=== PATIENT | female | born 1930 | race Caucasian/White ===

== ENCOUNTER 2017-03-30 10:14 | Day surgery (SDC) | payer OTHER, MEDICARE ==
[~2017-03-30 10:14] MED LIST: Acetaminophen TAB* 325 MG PO PRN; Buffered Lidocaine 0.9% SYRIN* 5 ML/SYR SYRINGE INTRADERM ONE
[2017-03-30] MEDS ORDERED: Midazolam* 1 MG/ML 2 ML VIAL (2 MG) ONE (10:38)
[2017-03-30 11:34] VITALS: BP 123/60
[2017-03-30] MEDS ORDERED: Tropicamide 1% OPTH.SOL* BTL ONE (11:37)
[2017-03-30] MEDS ORDERED: Cyclopentolate 1% OPTH.SOL* 2 ML BTL ONE (11:37)
[2017-03-30] MEDS ORDERED: Buffered Lidocaine 0.9% SYRIN* 5 ML/SYR SYRINGE ONE (11:37)
[2017-03-30] MEDS ORDERED: Flurbiprofen 0.03% OPTH.SOL* 2.5 ML BTL ONE (11:37)
[2017-03-30] MEDS ORDERED: Tetracaine 0.5% OPTH.SOL 4 ML* 1 DROP BTL ONE (11:37)
[2017-03-30] MEDS ORDERED: Lidocaine 1% MPF* 2 ML VIAL ONE (11:37)
[2017-03-30] MEDS ORDERED: Phenylephrine 2.5% OPTH.SOL* 2 ML BTL ONE (11:37)
[2017-03-30] MEDS ORDERED: Neomycin/Polymy/Dex OPHTH.OIN* 3.5 GM ONE (11:37)
[2017-03-30] MEDS ORDERED: Phenylephr/Ketorolac 1%/0.3% OPH DROP BTL ONE (12:39)
--- NOTE | 2017-03-30 16:28 | OP ---
DATE OF OPERATION/DATE OF DICTATION: 03/30/2017 - [facility] DATE OF : 1930. SURGEON: Dr. Husam Hernandez. EDGE WORKER: None. ANESTHESIA: Topical with intravenous sedation. PRE-OP DIAGNOSIS: Cataract, left eye. POST-OP DIAGNOSIS: Cataract, left eye. OPERATIVE PROCEDURE: Phacoemulsification and cataract extraction with posterior chamber intraocular lens implant, left eye. COMPLICATIONS: None. BLOOD LOSS: None. DESCRIPTION OF PROCEDURE: The patient was brought to the operating room and received a small amount of intravenous sedation. A drop of Tetracaine was placed in her left eye. She was prepped and draped in the usual sterile fashion for ophthalmic surgery and attention was directed to the left eye where a speculum was placed. A paracentesis was created at the 5 o'clock position and 0.1 cc of 1 percent preservative-free Lidocaine was injected into the anterior chamber followed by DisCoVisc. The eye was digitally stabilized while a 2.75 mm keratome was used to create a triplanar clear corneal incision at the 3 o'clock position. A continuous curvilinear capsulorrhexis was created with a cystotome and Utrata forceps. BSS on a cannula was used to hydrodissect the lens from the capsule. Phacoemulsification was performed in a divide-and- conquer technique to create four fragments which were removed. Residual cortical material was removed with irrigation and aspiration. DisCoVisc was used to inflate the capsular bag and an AUOOTO 18.5 diopter lens was folded and inserted into the capsular bag. DisCoVisc was removed using irrigation and aspiration. BSS on a cannula was used to hydrate the corneal stroma and seal the wound. At the end of the case the pupil was round and the lens was centered. The eye was of normal pressure and the wound was water tight. The speculum was removed and topical Maxitrol ointment was placed on the surface of the eye. The eye was closed, patched and shielded and the patient was sent to the recovery room in stable condition with post operative instructions and follow-up appointment given. [id number] #: [id number] MTDD
== END 2017-03-30 11:31 | disposition home or self-care (01) ==
LOC: OREAST 10:14
PROVIDERS: ATTEND Ophthalmology
DX: H25.12 Age-related nuclear cataract, left eye (principal); I48.91 Unspecified atrial fibrillation; Z79.01 Long term (current) use of anticoagulants; I10 Essential (primary) hypertension; I34.0 Nonrheumatic mitral (valve) insufficiency; I27.2 Other secondary pulmonary hypertension; I07.1 Rheumatic tricuspid insufficiency; E11.9 Type 2 diabetes mellitus without complications; Z79.84 Long term (current) use of oral hypoglycemic drugs
CPT/HCPCS: A9270-GY; C9447; J2250; V2632

== ENCOUNTER 2018-10-23 13:07 | Inpatient (IN) | payer OTHER, MEDICARE ==
--- OUTSIDE RECORDS SUMMARY | 2018-10-23 13:31 | XMS REPORT | Continuity of Care Document ---
:1930 External Reference #:[id number] Author Name RojasMorelia kenny Care Team Providers Name Role Phone Keely Sharpe M.D. Primary Care Physician Unavailable Payers Type Date Identification Numbers Payment Provider Subscriber Policy Number: [id number] [employer] Evelyn Frias Group Number: [id number] [address] PayID: [id number] [place] [address] Effective: 1998 Policy Number: [id number] Medicare Evelyn Frias PayID: [id number] [address] [place] [address] Advance Directives Description No Information Available Problems Date Description Provider Status Onset: 01/06/2018 Chronic kidney disease stage 3 Albert Chaney M.D., FRANSISCO Active Onset: 11/06/2015 Chronic atrial fibrillation Tomás Hansen M.D. Active Onset: 04/29/2016 Peripheral venous insufficiency Albert Chaney M.D., FACP Active Onset: 09/03/2014 Essential hypertension Tomás Hansen M.D. Active Onset: 09/03/2014 Mitral valve disorder Tomás Hansen M.D. Active Onset: 09/03/2014 Edema Tomás Hansen M.D. Active Onset: 01/21/2016 Right carotid artery occlusion Albert Chaney M.D., FRANSISCO Active Note: with <50% LT plaque Onset: 04/29/2016 Type 2 diabetes mellitus Albert Chaney, Active FRANSISCO Zarate Onset: 08/04/2017 Localized, primary Asa Rodriguez M.D. Active osteoarthritis Onset: 09/29/2017 Trochanteric bursitis Asa Rodriguez M.D. Active Onset: 09/03/2014 Atrial fibrillation Tomás Hansen M.D. Inactive Inactive: 12/23/2015 Onset: 05/24/2015 Sleep disorder Tomás Hansen M.D. Inactive Inactive: 01/21/2016 Onset: 01/21/2016 Hypersomnia with sleep apnea Albert Chaney M.D.,FACP Inactive Inactive: 04/29/2016 Onset: 06/11/2017 Chronic kidney disease stage Albert Chaney M.D.,ESTIVENP Inactive 2 Inactive: 01/06/2018 Note: estimated Family History Date Family Member(s) Problem(s) Comments : (age 70 Father due to Pneumonia Years) Father Mental Illness NOS Mother due to Renal () - at 71 or 72 Failure yo Siblings 1 1 sister with intestinal problem, no heart disease, alive Social History Type Date Description Comments Sex Unknown Marital Status Lives With Alone Occupation 09/10/2016 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, 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 [employer] Tobacco Use Start: Unknown Never Smoked Cigarettes Smoking Status Reviewed: 10/04/18 Never Smoked Cigarettes ETOH Use Denies alcohol use Tobacco Use Start: Unknown Patient has never smoked Recreational Drug Use Never Used Drugs Exercise Type/Frequency Exercises sporadically up and down 4 steps in house only Allergies, Adverse Reactions, Alerts Date Description Reaction Status Severity Comments 05/17/2014 Penicillin Active 05/17/2014 Sulfa Antibiotics Active 05/17/2014 Erythromycin Active 01/21/2016 Lipitor Active somnolence 07/31/2016 Levaquin tendon and muscle pain Active gastritis also 07/31/2016 Rosuvastatin muscle and joint pain Active Severe tolerates 5 mg Medications Medication Date Status Form Strength Qnty SIG Indications Ordering Provider Magnesium 10/04 Active Tablets 250mg 30tab 1 tab daily in Tomás Oxide -MG /2018 s in the morning F. Supplement by mouth Elliot Hansen Doxycycline 09/30 Hx Tablets 100mg 14tab 1 by mouth Albert Hyclsolomon /2018 s twice a day Francisca Whittington M.D.,FACP 10/07 Trulicity 09/30 Active Solution 1.5mg/0.5 2ml inject E11.65 Pen-Inject ML subcutaneously Harry Chaney, weekly M.D.,FACP Shingrix 04/08 Active Suspension 50mcg 2unit 0.5 milliliters Rec s intramuscular Harry Chaney, now and 2-3 M.D.,FACP months later repeat Eliquis 01/03 Active Tablets 2.5mg 180ta 1 tablet by Tomás bs mouth twice a F. day Elliot Hansen Albuterol 10/28 Active Nebulizer 1.25mg/3M 75ml use four times L a day as needed Harry Chaney with nebulizer Elliot,FACP Lovastatin 10/15 Active Tablets 40mg 90tab Take 1 Tablet E78.5 s By Mouth AT Harry Chaney, Bedtime M.DFreya,FACP I10 Voltaren 08/04/2017 Active Gel 1% 500units apply 3 M17.0 Asa grams to Jennifer, affected M.D. area twice a day as needed Freestyle 06/11/2017 Active Device 1units test twice E11.65 Albert Lite Blood daily and as Harry Chaney Glucose directed M.Harry,FACP Monitoring System Janumet XR 12/09/2016 Active Tablets ER 100-1 90tabs take 1 E11.65 Vance Dawkins 24HR 000mg tablet by Harry Chaney, mouth every M.D.,FACP day Pen Carmel 09/10/2016 Active Misc 31G X 10units use weekly Albert 6 mm with Rufino Whittington M.D.,FACP Flector 09/10/2016 Active Patches 1.3% 30units Apply 1 Albert Patch To The Harry Chaney Skin Two M.D.,FACP Times Daily as Needed Proair HFA 05/13/2016 Active Aerosol 108(9 8.5units Inhale 1 J20.9 Zenon 0Base puff By DEBORAH Chavarria ) Mouth Every mcg/A [address] Needed For Chest Tightness Or Wheezing R06.2 Nystop 03/04/2016 Active Powder [id number]/GM 1units apply L30.4 Jared Gray topically Harry Chaney, to rash M.D.,FACP twice a day until rash resolved Torsemide 11/06/2015 Active Tablets 10mg 90tabs take 1 L03.116 Jared Gray tablet by Harry Chaney, mouth every M.D.,FACP wednesday and wednesday R60.0 I10 Cardizem CD 10/09/2014 Active Caps ER 240mg 90caps take 1 I48.2 Jared Mcdonald 24HR capsule by Mikey, mouth every M.D.,FACP day I10 Metoprolol 06/08/2014 Active Tablets ER 25mg 180tabs 1 by I48.2 Jared Mcdonald Succinate ER 24HR mouth [place], twice M.D.,FACP daily I10 Advil Active Capsules 200mg 200caps as needed Unknown Fluticasone Active Suspension 50mcg/Ac 2 sprays Unknown Propionate t each nostril daily as needed Lisinopril 11/22/2017 - Hx Tablets 2.5mg 90tabs take 1 Albert 10/04/2018 tablet by Harry Chaney, mouth M.D.,FACP every day Cefuroxime 10/28/2017 - Hx Tablets 500mg 14tabs 1 by mouth Albret Axetil 11/04/2017 twice a D. Mikey, day for 7 M.D.,FACP days Azithromycin 10/28/2017 - Hx Tablets 250mg 6tabs 2 every Albert 11/02/2017 day for 1 D. Mikey, day, then M.D.,FACP 1 every day Ciprodex 02/11/2017 - Hx Suspension 0.3-0.1% 7.500ml instill 4 H6 Wyatt 02/18/2017 drops into 0. Angelique, FREELANCE WRITER affected 8x ears twice 2 daily for 7 days Janumet 12/09/2016 - Hx Tablets 50-500mg Zenon 12/09/2016 Yemeni, FREELANCE WRITER Fortamet 09/10/2016 - Hx Tablets ER 1000mg 90tabs 1 by mouth E1 Jared Gray 12/09/2016 24HR every 1. D. Mikey, morning 67 M.D.,FACP Jodie Trulicity 09/10/2016 - Hx Solution 0.75mg/0 2ml inject the E1 Albert 09/30/2018 Pen-Inject .5ML contents 1. D. [place], of one 67 M.D.,FACP syringe under the skin once weekly Doxycycline 09/03/2016 - Hx Capsules 100mg 20caps 1 capsulet L0 Zenon Hyclate 09/13/2016 by mouth 3. Yemeni, twice a 11 FREELANCE WRITER day for 10 5 days Janumet XR 08/12/2016 - Hx Tablets ER 100-1000 30tabs 1 tab po Zenon 09/10/2016 24HR mg qd Yemeni, F[employer]ELANCE WRITER Clindamycin HCL 08/04/2016 - Hx Capsules 300mg 15caps 1 capsule L0 Zenon 08/22/2016 by mouth 3. Yemeni, three 11 FREELANCE WRITER times a 6 day x's 5 days Doxycycline 07/31/2016 - Hx Tablets 100mg 20tabs 1 by mouth L0 Zenon Hyclate 08/04/2016 twice a 3. Yemeni, day x10 11 FREELANCE WRITER days 6 Levaquin 05/27/2016 - Hx Tablets 750mg 7tabs 1 tab po J1 Zenon 06/29/2016 daily x5-7 8. Yemeni, days (pt 9 FREELANCE WRITER reports she stopped taking) Tessalon 05/27/2016 - Hx Capsules 200mg 30caps 1 cap po J2 Zenon 05/27/2016 tid prn 0. Yemeni, 9 FREELANCE WRITER R05 Tessalon 05/27/2016 - 05/27/2016 Hx Capsules 200mg J20.9 Zenon Yemeni , FREELANCE WRITER R05 Tessalon 05/27/2016 - Hx Capsules 100mg 30caps 2 caps by J20.9 Zenon Perles 06/06/2016 mouth three Yemeni, FREELANCE WRITER times a day as needed R05 Ipratropium 05/27/2016 Hx Solution 0.5-2.5(3)mg/3ML 90ml 3ml R06.2 Zenon Pember[place]/Albuterol - nebulizer Yemeni, Sulfate 06/06/2016 four times FREELANCE WRITER a day x 4 days Combivent Respimat 05/18/2016 Hx Aerosol 20-100mcg/Act 12uni 1 puffs R06.2 Zenon - ts 4-6 times Yemeni, 05/27/2016 daily as FREELANCE WRITER needed Prednisone 05/18/2016 Hx Tablets 20mg 10tab 2 tablets J20.9 Zenon - s by mouth Yemeni, 05/23/2016 daily x's FREELANCE WRITER 5 days in the morning Nica Perles 05/18/2016 Hx Capsules 100mg 30cap 1 capsule J20.9 Zenon - s by mouth Yemeni, 05/27/2016 three FREELANCE WRITER times a day as needed R05 Azithromycin 05/13/2016 - Hx Tablets 250mg 6tabs 2 tabs by J20.9 Zenon 05/18/2016 mouth on Yemeni, day 1; 1 FREELANCE WRITER tab by mouth every day on days 2-5 Combivent 05/13/2016 - Hx Aerosol 20-100mc 4gm inhale 1 J20.9 Zenon Respimat 05/18/2016 g/Act puff three Yemeni, times a day FREELANCE WRITER x 5 days Doxycycline 03/19/2016 - Hx Capsules 100mg 20caps 1 cab twice L03.116 Maxx Hyclate 04/29/2016 a day Elliot Manzanares Doxycycline 02/19/2016 - Hx Capsules 100mg 20caps 1 capsulet L03.115 Zenon Hyclate 02/29/2016 by mouth Yemeni, twice a day FREELANCE WRITER for 10 days Kombiglyze XR 02/04/2016 - Hx Tablets ER 5-500mg 30tabs 1 by mouth Albert 02/04/2016 24HR every day Harry Chaney M.D.,FACP Janumet XR 02/04/2016 - Hx Tablets ER 50-500mg 90tabs every day Jared Gray 08/12/2016 24HR by mouth Harry Chaney M.D.,FACP Metformin HCL 01/21/2016 - Hx Tablets ER 500mg 60tabs 1 by mouth E11.65 Albert ER (Osm) 02/04/2016 24HR every day Harry Chaney, for 2 wks M.D.,FACP then 2 qd Crestor 11/06/2015 - Hx Tablets 5mg 90tabs take 1 E78.5 Albert 10/15/2017 tablet by Harry Chaney, mouth every M.D.,FACP day I10 Metoprolol 04/29/2015 - Hx Tablets ER 25mg 100tabs 1 by mouth in Tomás Succinate ER 11/06/2015 24HR the afternoon nicholas Palomino planning M.DFreya to exercise at the gym. Torsemide 09/03/2014 - Hx Tablets 10mg 30tabs 1 by mouth Tomás 11/06/2015 twice a week Braulio Hansen pt states she M.D. is taking everyother day Cardizem CD 08/13/2014 - Hx Caps ER 180mg 90caps 1 by mouth Tomás 10/09/2014 24HR every day Braulio Hansen M.D. Cardizem CD 07/26/2014 - Hx Caps ER 120mg 90caps 1 by mouth Tomás 08/13/2014 24HR every day Braulio Hansen M.D. Digoxin 07/26/2014 - Hx Tablets 125mcg 25tabs 1 by mouth Tomás 10/09/2014 twice a week Braulio Hasnen M.D. Lisinopril 06/08/2014 - Hx Tablets 5mg 60tabs 1/2 by mouth Tomás 10/09/2014 twice a day summer Palomino as of Elliot 12.15.14 for possible cough Metoprolol 04/23/2014 - Hx Tablets ER 25mg 60tabs 1 by mouth Unknown Succinate ER 06/08/2014 24HR twice a day Cyclobenzaprine 11/15/2012 - Hx Tablets 5mg 15tabs take one Asa HCL 05/11/2014 tablet by vince Rodriguez three M.DFreya times daily as needed for muscle spasm Lidocaine HCL 11/07/2012 - Hx Solution 4% 100ml apply to knee Asa 05/17/2014 prior to luis Rodriguez M.D. removal Cipro 10/27/2012 - Hx Tablets 500mg 14tabs one tab po Asa 05/04/2014 bid x 7 days Elliot Rodriguez Naprosyn 07/28/2012 - Hx Tablets 375mg 60tabs 1 po bid prn Asa 05/17/2014 Elliot Rodriguez Ultram 07/28/2012 - Hx Tablets 50mg 60tabs 1-2 po bid Asa 05/17/2014 prn Elliot Rodriguez Spironolactone - Hx Tablets 25mg 90tabs taking 1 L0 Tomás 09/20/2018 daily 3. Soni Palomino M.D. 6 R60.0 I10 Digoxin - Hx Tablets .125mcg 90tabs 1 by mouth Unknown 07/26/2014 every day Lisinopril - Hx Tablets 5mg 30tabs 1 by mouth Unknown 06/08/2014 every day Lipitor - Hx Tablets 20mg 90tabs one tab by Unknown 06/08/2014 mouth every night at bedtime HOld as of 9.19.14 Metoprolol - Hx Tablets 25mg 180tabs 1 by mouth Unknown Tartrate 05/17/2014 twice a day Doxycycline - Hx Capsules 100mg 40caps si Unknown Monohydrate 09/02/2014 twice a day x 20 days Ciprofloxacin HCL - Hx Tablets 250mg one by Unknown 01/22/2015 mouth twice a day for 7 days Keflex - Hx Capsules 500mg 1 by mouth Unknown 04/29/2015 two times a day Vitamin D3 Super - Hx Tablets 2000Unit 1 by mouth Unknown Strength 09/30/2018 every day Pradaxa - Hx Capsules 150mg 180caps take 1 I48. Albert 01/06/2018 capsule by 2 Harry Chaney, mouth two M.D.,FACP times daily 01/03 day 1: am only I65.21 Immunizations CPT Code Status Date Vaccine Reaction Lot # [id number] Given 09/15/2018 Influenza Virus Vaccine, Quadrivalent, [id number] Split, Preservative Free 93955 Given 06/11/2017 Influenza Virus Vaccine, Quadrivalent, no reaction [id number] Split, Preservative Free 26616 Given 09/03/2016 Pneumonia Vaccine [id number] 83672 Given 07/31/2016 Tdap - Tetanus/Diptheria/Acellular [id number] Pertussis 93698 Given 07/31/2016 Influenza Virus Vaccine, Quadrivalent, [id number] Split Virus, Im Use 04963 Given 01/21/2016 Pneumococcal Conjugate Vaccine 13 [id number] Valent For Intramuscular Use Vital Signs Date Vital Result Comment 10/04/2018 2:30pm Height 64 inches 5'4" Weight 216.38 lb no shoes, wearing sweatshirt Heart Rate 96 /min lt radial BP Systolic Sitting 138 mmHg rt arm BP Diastolic Sitting 74 mmHg rt arm BP Systolic Standing 108 mmHg la repeat sit BP Diastolic Standing 59 mmHg la repeat sit BMI (Body Mass Index) 37.1 kg/m2 Ejection Fraction 50-55% echo 01/07/18 09/30/2018 11:19am Height 64 inches 5'4" Heart Rate 91 /min BP Systolic 110 mmHg BP Diastolic 68 mmHg Body Temperature 97.3 F O2 % BldC Oximetry 94 % 07/04/2018 1:20pm Height 64 inches 5'4" Weight 230.12 lb no shoes Heart Rate 73 /min BP Systolic 110 mmHg rue large cuff BP Diastolic 60 mmHg rue large cuff BMI (Body Mass Index) 39.5 kg/m2 Ejection Fraction 50-55% Echo. 01/07/2018 04/08/2018 4:05pm Height 64 inches 5'4" Heart Rate 85 /min BP Systolic 126 mmHg BP Diastolic 74 mmHg O2 % BldC Oximetry 95 % 01/27/2018 10:32am Height 64 inches 5'4" Weight 230.00 lb w/o shoes Heart Rate 74 /min BP Systolic Sitting 110 mmHg Lue BP Diastolic Sitting 76 mmHg Lue Respiratory Rate 14 /min BMI (Body Mass Index) 39.5 kg/m2 Ejection Fraction 50-55% as of 12/2017 echo 01/06/2018 1:00pm Height 64 inches 5'4" Weight 233.00 lb Heart Rate 76 /min BP Systolic 130 mmHg BP Diastolic 76 mmHg O2 % BldC Oximetry 97 % BMI (Body Mass Index) 40.0 kg/m2 11/25/2017 1:24pm Height 64 inches 5'4" Weight 231.25 lb without shoes Heart Rate 56 /min BP Systolic Sitting 150 mmHg Ra, l cuff BP Diastolic Sitting 82 mmHg Ra, l cuff BMI (Body Mass Index) 39.7 kg/m2 Ejection Fraction 55%-60% echo 05/28/17 10/28/2017 3:34pm Weight 220.00 lb Heart Rate 93 /min BP Systolic 121 mmHg BP Diastolic 81 mmHg Body Temperature 98.0 F O2 % BldC Oximetry 95 % 10/06/2017 2:23pm Weight 223.00 lb Heart Rate 94 /min BP Systolic Sitting 150 mmHg BP Diastolic Sitting 80 mmHg BP Systolic Recheck 115 mmHg BP Diastolic Recheck 82 mmHg Body Temperature 99.4 F O2 % BldC Oximetry 94 % 09/29/2017 12:47pm Height 63.75 inches 5'3.75" Weight 223.00 lb per pt Heart Rate 82 /min reg BP Systolic Sitting 116 mmHg Lue, lg cuff BP Diastolic Sitting 70 mmHg Lue, lg cuff Respiratory Rate 16 /min Pain Level 4 b/l knees BMI (Body Mass Index) 38.6 kg/m2 08/04/2017 1:15pm Height 63.75 inches 5'3.75" Weight 220.00 lb Heart Rate 84 /min BP Systolic 130 mmHg BP Diastolic 82 mmHg Respiratory Rate 16 /min Body Temperature 98.9 F Pain Level 3 BMI (Body Mass Index) 38.1 kg/m2 06/11/2017 11:28am Heart Rate 72 /min BP Systolic Sitting 130 mmHg BP Diastolic Sitting 78 mmHg Body Temperature 98.6 F O2 % BldC Oximetry 98 % 04/20/2017 2:14pm Weight 234.25 lb with shoes Heart Rate 76 /min BP Systolic Sitting 146 mmHg Ra reg cuff BP Diastolic Sitting 88 mmHg Ra reg cuff BP Systolic Standing 134 mmHg la repeat sitting BP Diastolic Standing 72 mmHg la repeat sitting Ejection Fraction 50% - 55% echo 05/24/15 03/11/2017 12:52pm Weight 233.50 lb Heart Rate 67 /min BP Systolic Sitting 146 mmHg BP Diastolic Sitting 78 mmHg Body Temperature 98.7 F O2 % BldC Oximetry 97 % 02/26/2017 7:46am Heart Rate 76 /min BP Systolic Sitting 150 mmHg BP Diastolic Sitting 84 mmHg Body Temperature 98.7 F O2 % BldC Oximetry 98 % 02/11/2017 3:42pm Heart Rate 73 /min BP Systolic 150 mmHg BP Diastolic 80 mmHg Body Temperature 99.1 F O2 % BldC Oximetry 95 % 12/09/2016 1:03pm Heart Rate 88 /min BP Systolic Sitting 153 mmHg 148/90 BP Diastolic Sitting 108 mmHg 148/90 Body Temperature 98.5 F O2 % BldC Oximetry 96 % 09/25/2016 2:49pm Height 60 inches 5'0" Weight 234.00 lb with shoes Heart Rate 90 /min BP Systolic Sitting 132 mmHg Ra lrg cuff BP Diastolic Sitting 72 mmHg Ra lrg cuff BMI (Body Mass Index) 45.7 kg/m2 Ejection Fraction 50% - 55% echo 05/24/15 09/10/2016 1:15pm Height 60 inches 5'0" Weight 236.31 lb Heart Rate 88 /min BP Systolic Sitting 152 mmHg BP Diastolic Sitting 94 mmHg Body Temperature 97.5 F O2 % BldC Oximetry 96 % BMI (Body Mass Index) 46.1 kg/m2 09/03/2016 1:03pm Heart Rate 79 /min BP Systolic Sitting 144 mmHg BP Diastolic Sitting 78 mmHg Body Temperature 99.0 F O2 % BldC Oximetry 96 % 08/12/2016 2:05pm Heart Rate 70 /min BP Systolic Sitting 126 mmHg BP Diastolic Sitting 68 mmHg Body Temperature 99.2 F O2 % BldC Oximetry 97 % 08/04/2016 11:31am Heart Rate 93 /min BP Systolic Sitting 141 mmHg BP Diastolic Sitting 76 mmHg Body Temperature 98.8 F O2 % BldC Oximetry 98 % 07/31/2016 2:22pm Height 60 inches 5'0" Heart Rate 80 /min BP Systolic Sitting 130 mmHg BP Diastolic Sitting 80 mmHg Body Temperature 99.0 F O2 % BldC Oximetry 97 % 06/10/2016 11:17am Height 60 inches 5'0" Weight 227.00 lb w/o shoes Heart Rate 80 /min BP Systolic Sitting 142 mmHg LA lg cuff BP Diastolic Sitting 72 mmHg LA lg cuff BMI (Body Mass Index) 44.3 kg/m2 Ejection Fraction 50-55% Echo 05/24/15 06/01/2016 11:31am Heart Rate 89 /min BP Systolic Sitting 150 mmHg BP Diastolic Sitting 80 mmHg Body Temperature 96.8 F O2 % BldC Oximetry 98 % 05/27/2016 3:32pm Heart Rate 79 /min recheck 99 BP Systolic Sitting 150 mmHg BP Diastolic Sitting 80 mmHg Body Temperature 101.5 F 101.8 recheck O2 % BldC Oximetry 94 % 92% recheck 05/18/2016 1:08pm Heart Rate 84 /min BP Systolic Sitting 138 mmHg BP Diastolic Sitting 62 mmHg Body Temperature 98.5 F O2 % BldC Oximetry 97 % 05/13/2016 11:54am Heart Rate 104 /min BP Systolic Sitting 150 mmHg BP Diastolic Sitting 70 mmHg Body Temperature 99.9 F O2 % BldC Oximetry 92 % 04/29/2016 11:19am Height 60 inches 5'0" Weight 231.00 lb Heart Rate 80 /min BP Systolic Sitting 122 mmHg BP Diastolic Sitting 70 mmHg Body Temperature 99.4 F O2 % BldC Oximetry 94 % BMI (Body Mass Index) 45.1 kg/m2 04/06/2016 11:18am Height 60 inches 5'0" Weight 228.38 lb Heart Rate 96 /min BP Systolic Sitting 133 mmHg BP Diastolic Sitting 70 mmHg Body Temperature 98.9 F O2 % BldC Oximetry 96 % BMI (Body Mass Index) 44.6 kg/m2 03/24/2016 2:54pm Height 60 inches 5'0" Weight 226.00 lb Heart Rate 95 /min BP Systolic Sitting 124 mmHg BP Diastolic Sitting 68 mmHg Body Temperature 98.6 F O2 % BldC Oximetry 96 % BMI (Body Mass Index) 44.1 kg/m2 03/19/2016 1:39pm Height 60 inches 5'0" Weight 233.00 lb Heart Rate 97 /min BP Systolic Sitting 128 mmHg BP Diastolic Sitting 74 mmHg Body Temperature 99.7 F O2 % BldC Oximetry 97 % BMI (Body Mass Index) 45.5 kg/m2 03/04/2016 3:43pm Height 60 inches 5'0" Weight 226.12 lb Heart Rate 89 /min BP Systolic Sitting 132 mmHg BP Diastolic Sitting 80 mmHg Body Temperature 99.0 F O2 % BldC Oximetry 92 % BMI (Body Mass Index) 44.2 kg/m2 02/19/2016 3:01pm Height 60 inches 5'0" Weight 227.00 lb Heart Rate 76 /min BP Systolic Sitting 122 mmHg BP Diastolic Sitting 82 mmHg Body Temperature 98.6 F O2 % BldC Oximetry 95 % BMI (Body Mass Index) 44.3 kg/m2 01/21/2016 2:41pm Height 60 inches 5'0" Weight 227.25 lb Heart Rate 90 /min BP Systolic Sitting 158 mmHg BP Diastolic Sitting 90 mmHg Body Temperature 98.9 F O2 % BldC Oximetry 97 % BMI (Body Mass Index) 44.4 kg/m2 12/16/2015 2:21pm Height 64 inches 5'4" Weight 221.25 lb w/o shoes Heart Rate 90 /min BP Systolic 142 mmHg LA reg cuff BP Diastolic 82 mmHg LA reg cuff Respiratory Rate 18 /min BMI (Body Mass Index) 38.0 kg/m2 Ejection Fraction 50-55% ECHO 05/41511/06/2015 10:09am Height 64 inches 5'4" Weight 222.25 lb w/shoes Heart Rate 84 /min BP Systolic Sitting 136 mmHg LA reg cuff BP Diastolic Sitting 82 mmHg LA reg cuff BMI (Body Mass Index) 38.1 kg/m2 Ejection Fraction 50-55 echo 05/24/15 04/29/2015 3:05pm Height 64 inches 5'4" Weight 214.50 lb Heart Rate 74 /min BP Systolic Sitting 130 mmHg LA, large BP Diastolic Sitting 82 mmHg LA, large BMI (Body Mass Index) 36.8 kg/m2 Ejection Fraction 40%-45% 06/01/14 echo 10/23/2014 11:04am Height 64 inches 5'4" Weight 204.00 lb with coat Heart Rate 70 /min irregular BP Systolic 158 mmHg LA reg BP Diastolic 80 mmHg LA reg BMI (Body Mass Index) 35.0 kg/m2 09/03/2014 2:31pm Height 64 inches 5'4" Weight 206.00 lb Heart Rate 96 /min BP Systolic 122 mmHg LA reg BP Diastolic 75 mmHg LA reg BMI (Body Mass Index) 35.4 kg/m2 08/27/2014 1:00pm Heart Rate 80 /min BP Systolic 134 mmHg Ra, reg BP Diastolic 80 mmHg Ra, reg BP Systolic Sitting 132 mmHg LA, reg BP Diastolic Sitting 76 mmHg LA, reg 08/27/2014 12:56pm Height 64 inches 5'4" 07/30/2014 2:07pm Height 64 inches 5'4" Heart Rate 84 /min reg BP Systolic 134 mmHg Ra, reg BP Diastolic 84 mmHg Ra, reg BP Systolic Sitting 138 mmHg LA, reg BP Diastolic Sitting 82 mmHg LA, reg 07/10/2014 11:27am Height 64 inches 5'4" Weight 196.50 lb Heart Rate 74 /min BP Systolic Sitting 120 mmHg LA reg cuff BP Diastolic Sitting 62 mmHg LA reg cuff Respiratory Rate 15 /min BMI (Body Mass Index) 33.7 kg/m2 06/13/2014 10:05am Heart Rate 76 /min BP Systolic Sitting 126 mmHg BP Diastolic Sitting 68 mmHg Respiratory Rate 14 /min 06/08/2014 11:16am Height 64 inches 5'4" Weight 190.25 lb Heart Rate 84 /min BP Systolic Sitting 120 mmHg BP Diastolic Sitting 66 mmHg Respiratory Rate 15 /min BMI (Body Mass Index) 32.7 kg/m2 05/17/2014 10:29am Height 64 inches 5'4" Weight 188.00 lb Heart Rate 60 /min BP Systolic Sitting 152 mmHg BP Diastolic Sitting 84 mmHg Respiratory Rate 14 /min BMI (Body Mass Index) 32.3 kg/m2 01/13/2012 9:25am Height 64 inches 5'4" Weight 177.00 lb Heart Rate 90 /min BP Systolic 184 mmHg BP Diastolic 90 mmHg BMI (Body Mass Index) 30.4 kg/m2 Results Test Date Facility Test Result H/L Range Note Microalbumin 24HR 10/03/2018 [facility] Urine Collection 24 hr Urine [address] [place] [address] [phone] Urine Total Volume 1000 mL Ur Microalbumin (mg/L) 40.5 Urine Microalbumin (mg/24Hr) 40.5 mg/24hr High Less than 30 Urine Microalbumin (mcg/min) 28.1 mcg/min High Less than 20 Creatinine 10/03/2018 [facility] Creatinine, 1.68 High 0.51- 0.[address] Serum mg/[place] [address] [phone] Urine Collection Time 24 hr Urine Total Volume 1000 mL Urine Creatinine Concentration 106.50 mg/dL Creatinine Clearance 44 mL/min Low 88-128 CBC Auto 10/03/2018 [facility] White Blood 12.2 10^3/uL High 3.5-10.[address] [place] [address] [phone] Red Blood Count 4.21 10^6/uL N 4.00-5.40 Hemoglobin 12.2 g/dL N 12.0-16.0 Hematocrit 39 % N 35-47 Mean Corpuscular Volume 92 fL N 80-97 Mean Corpuscular Hemoglobin 29 pg N 27-31 Mean Corpuscular HGB Conc 32 g/dL N 31-36 Red Cell Distribution Width 15 % N 10.5-15 Platelet Count 350 10^3/uL N 150-450 Mean Platelet Volume 9.6 fL N 7.4-10.4 Abs Neutrophils 9.7 10^3/uL High 1.5-7.7 Abs Lymphocytes 1.1 10^3/uL N 1.0-4.8 Abs Monocytes 1.2 10^3/uL High 0-0.8 Abs Eosinophils 0.2 10^3/uL N 0-0.6 Abs Basophils 0.1 10^3/uL N 0-0.2 Abs Nucleated RBC 0 10^3/uL Granulocyte % 79.5 % Lymphocyte % 8.7 % Monocyte % 9.8 % Eosinophil % 1.4 % Basophil % 0.6 % Nucleated Red Blood Cells % 0 Laboratory test 10/03/2018 [facility] B-Type 285 pg/mL High <= 100 [address] [place] [address] Peptide BNP [phone] Magnesium 1.6 mg/dL Low 1.9-2.7 2 Comp Metabolic Panel 10/03/2018 [facility] Sodium 134 mmol/L Low 135-[address] [place] [address] [phone] Chloride 99 mmol/L Low 101-111 Co2 Carbon Dioxide 25 mmol/L N 22-32 Glucose 299 mg/dL High 70-100 Blood Urea Nitrogen 41 mg/dL High 6-24 Creatinine 1.66 mg/dL High 0.51-0.95 BUN/Creatinine Ratio 24.7 High 8-20 Calcium 10.1 mg/dL N 8.6-10.3 Total Protein 6.2 g/dL Low 6.4-8.9 Albumin 2.9 g/dL Low 3.2-5.2 Globulin 3.3 g/dL N 2-4 Albumin/Globulin Ratio 0.9 Low 1-3 Total Bilirubin 0.50 mg/dL N 0.2-1.0 Alkaline Phosphatase 129 U/L High 34-104 Alt 14 U/L N 7-52 Ast 12 U/L Low 13-39 Egfr Non- 29.3 >60 Egfr 35.4 >60 3 Potassium 5.5 mmol/L High 3.5-5.0 Anion Gap 10 mmol/L N 2-11 Laboratory test 09/30/2018 [facility] Hemoglobin A1c 9.6 High 5-7 finding Laboratory test 04/08/2018 [facility] Hemoglobin A1c 7.4 High 5-7 finding Basic Metabolic 04/05/2018 [facility] Sodium 137 mmol/L N 135- [address] [place], [place] [id number] [phone] Potassium 5.0 mmol/L N 3.5-5.0 Chloride 107 mmol/L N 101-111 Co2 Carbon Dioxide 18 mmol/L Low 22-32 Anion Gap 12 mmol/L High 2-11 Glucose 140 mg/dL High 70-100 Blood Urea Nitrogen 41 mg/dL High 6-24 Creatinine 1.62 mg/dL High 0.51-0.95 BUN/Creatinine Ratio 25.3 High 8-20 Calcium 9.4 mg/dL N 8.6-10.3 Egfr Non- 30.2 >60 Egfr 36.5 >60 4 Laboratory test 01/06/2018 [facility] Hemoglobin A1c 7.7 High 5-7 finding Lipid Panel - JFM 12/24/2017 [facility] Creatine 40 U/L N 10- [address] Kinase(CK) [place] [address] [phone] Comp Metabolic 12/24/2017 [facility] Sodium 139 mmol/L N 139- [address] [place] [address] [phone] Potassium 4.9 mmol/L N 3.5-5.0 Chloride 105 mmol/L N 101-111 Co2 Carbon Dioxide 24 mmol/L N 22-32 Anion Gap 10 mmol/L N 2-11 Glucose 162 mg/dL High 70-100 Blood Urea Nitrogen 56 mg/dL High 6-24 Creatinine 1.89 mg/dL High 0.51-0.95 BUN/Creatinine Ratio 29.6 High 8-20 Calcium 10.3 mg/dL N 8.6-10.3 Total Protein 6.7 g/dL N 6.4-8.9 Albumin 4.0 g/dL N 3.2-5.2 Globulin 2.7 g/dL N 2-4 Albumin/Globulin Ratio 1.5 N 1-3 Total Bilirubin 0.40 mg/dL N 0.2-1.0 Alkaline Phosphatase 108 U/L High 34-104 Alt 37 U/L N 7-52 Ast 18 U/L N 13-39 Egfr Non- 25.3 >60 Egfr 32.5 >60 6 Lipid Profile 12/24/2017 [facility] Triglycerides 137 mg/dL 7 (Trig/Chol/HDL) [address] [place] [address] [phone] Cholesterol 154 mg/dL 8 HDL Cholesterol 46.7 mg/dL 9 LDL Cholesterol 80 mg/dL 10 CBC Auto Diff 12/24/2017 [facility] White Blood 9.3 10^3/uL N 3.5-10.[address] [place] [address] [phone] Red Blood Count 4.83 10^6/uL N 4.0-5.4 Hemoglobin 14.7 g/dL N 12.0-16.0 Hematocrit 45 % N 35-47 Mean Corpuscular Volume 92 fL N 80-97 Mean Corpuscular Hemoglobin 30 pg N 27-31 Mean Corpuscular HGB Conc 33 g/dL N 31-36 Red Cell Distribution Width 16 % High 10.5-15 Platelet Count 180 10^3/uL N 150-450 Mean Platelet Volume 10.3 um3 N 7.4-10.4 Abs Neutrophils 6.3 10^3/uL N 1.5-7.7 Abs Lymphocytes 1.7 10^3/uL N 1.0-4.8 Abs Monocytes 0.9 10^3/uL High 0-0.8 Abs Eosinophils 0.3 10^3/uL N 0-0.6 Abs Basophils 0 10^3/uL N 0-0.2 Abs Nucleated RBC 0 10^3/uL Granulocyte % 67.7 % N 38-83 Lymphocyte % 18.2 % Low 25-47 Monocyte % 10.1 % High 0-7 Eosinophil % 3.5 % N 0-6 Basophil % 0.5 % N 0-2 Nucleated Red Blood Cells % 0.1 Laboratory test 12/24/2017 [facility] Magnesium 2.0 mg/dL N 1.9-2.7 11 finding [address] [place] [address] [phone] B-Type Natriuretic Peptide BNP 153 pg/mL High 12 Urine Microalbumin 10/28/2017 [facility] Ur Microalbumin 187.7 mg/L 13 Random 101 [facility] (mg/L) [place] [address] [phone] Urine Creatinine 169.15 mg/dL Urine Microalbumin/Creatinine 110.9 ug/mg High <31 Laboratory test 10/06/2017 [facility] Hemoglobin A1c 7.2 High 5-7 finding Laboratory test 06/11/2017 [facility] Hemoglobin A1c 7.2 High 5-7 finding Lipid Profile 05/05/2017 [facility] Triglycerides 157 mg/dL N 14 (Trig/Chol/HDL) [address] [place] [address] [phone] Cholesterol 138 mg/dL N 15 HDL Cholesterol 46.2 mg/dL N 16 LDL Cholesterol 60 mg/dL N 17 Comp Metabolic Panel 05/05/2017 [facility] Sodium 134 mmol/L N 133-145 [address] [place] [address] [phone] Potassium 4.5 mmol/L N 3.5-5.0 Chloride 102 mmol/L N 101-111 Co2 Carbon Dioxide 23 mmol/L N 22-32 Anion Gap 9 mmol/L N 2-11 Glucose 151 mg/dL High 70-100 Blood Urea Nitrogen 33 mg/dL High 6-24 Creatinine 1.46 mg/dL High 0.51-0.95 BUN/Creatinine Ratio 22.6 High 8-20 Calcium 9.2 mg/dL N 8.6-10.3 Total Protein 6.6 g/dL N 6.4-8.9 Albumin 3.7 g/dL N 3.2-5.2 Globulin 2.9 g/dL N 2-4 Albumin/Globulin Ratio 1.3 N 1-3 Total Bilirubin 0.50 mg/dL N 0.2-1.0 Alkaline Phosphatase 84 U/L N 34-104 Alt 12 U/L N 7-52 Ast 16 U/L N 13-39 Egfr Non- 34.0 N >60 Egfr 43.8 N >60 18 Lipid Panel - 05/05/2017 [facility] Creatine 43 U/L N 10-[address] Kinase(CK) [place] [address] [phone] CBC Auto Diff 05/05/2017 [facility] White Blood Count 8.1 N 3.5-10.[address] 10^3/[place] [address] [phone] Red Blood Count 4.53 10^6/uL N 4.0-5.4 Hemoglobin 13.6 g/dL N 12.0-16.0 Hematocrit 42 % N 35-47 Mean Corpuscular Volume 92 fL N 80-97 Mean Corpuscular Hemoglobin 30 pg N 27-31 Mean Corpuscular HGB Conc 33 g/dL N 31-36 Red Cell Distribution Width 16 % High 10.5-15 Platelet Count 219 10^3/uL N 150-450 Mean Platelet Volume 11 um3 High 7.4-10.4 Abs Neutrophils 5.6 10^3/uL N 1.5-7.7 Abs Lymphocytes 1.6 10^3/uL N 1.0-4.8 Abs Monocytes 0.7 10^3/uL N 0-0.8 Abs Eosinophils 0.3 10^3/uL N 0-0.6 Abs Basophils 0 10^3/uL N 0-0.2 Abs Nucleated RBC 0 10^3/uL N Granulocyte % 68.9 % N 38-83 Lymphocyte % 19.2 % Low 25-47 Monocyte % 8.1 % N 1-9 Eosinophil % 3.2 % N 0-6 Basophil % 0.6 % N 0-2 Nucleated Red Blood Cells % 0 N Laboratory test 03/30/2017 [facility] Point of Care 160 mg/dL High 74-106 [address] [place] [address] [phone] Laboratory test 02/26/2017 [facility] Hemoglobin A1c 7.4 High 5-7 finding Laboratory test 12/09/2016 [facility] Hemoglobin A1c 7.7 High 5-7 finding Basic Metabolic 09/22/2016 [facility] Sodium 135 N 133-[address] mmol/[place] [address] [phone] Chloride 104 mmol/L N 101-111 Co2 Carbon Dioxide 24 mmol/L N 22-32 Glucose 149 mg/dL High 70-100 Blood Urea Nitrogen 28 mg/dL High 6-24 Creatinine 1.33 mg/dL High 0.51-0.95 BUN/Creatinine Ratio 21.1 High 8-20 Calcium 9.4 mg/dL N 8.6-10.3 Egfr Non- 38.0 N >60 Egfr 48.9 N >60 20 Potassium TNP mmol/L N 3.5-5.0 21 Anion Gap TNP mmol/L N 2-11 Laboratory test 08/12/2016 [facility] Hemoglobin A1c 8.2 High 5-7 finding Lipid Panel - JFM 07/21/2016 [facility] Creatine 45 U/L N 10- [address] Kinase(CK) [place] [address] [phone] Comp Metabolic 07/21/2016 [facility] Blood Urea 28 mg/dL High 6-[address] [place] [address] [phone] Total Protein 6.8 g/dL N 6.4-8.9 Albumin 3.8 g/dL N 3.2-5.2 Globulin 3.0 g/dL N 2-4 Albumin/Globulin Ratio 1.3 N 1-3 Total Bilirubin 0.40 mg/dL N 0.2-1.0 Sodium 136 mmol/L N 133-145 Potassium 5.0 mmol/L N 3.5-5.0 Chloride 103 mmol/L N 101-111 Co2 Carbon Dioxide 25 mmol/L N 22-32 Anion Gap 8 mmol/L N 2-11 Glucose 185 mg/dL High 70-100 Creatinine 1.53 mg/dL High 0.51-0.95 BUN/Creatinine Ratio 18.3 N 8-20 Calcium 9.7 mg/dL N 8.6-10.3 Alkaline Phosphatase 75 U/L N 34-104 Alt 13 U/L N 7-52 Ast 16 U/L N 13-39 Egfr Non- 32.3 N >60 Egfr 41.6 N >60 23 Lipid Profile 07/21/2016 [facility] Triglycerides 142 mg/dL N 24 (Trig/Chol/HDL) [address] [place] [address] [phone] Cholesterol 152 mg/dL N 25 HDL Cholesterol 50.1 mg/dL N 26 LDL Cholesterol 74 mg/dL N 27 CBC Auto Diff 07/21/2016 [facility] White Blood 10.0 10^3/uL N 3.5-10.[address] [place] [address] [phone] Red Blood Count 4.58 10^6/uL N 4.0-5.4 Hemoglobin 13.6 g/dL N 12.0-16.0 Hematocrit 42 % N 35-47 Mean Corpuscular Volume 91 fL N 80-97 Mean Corpuscular Hemoglobin 30 pg N 27-31 Mean Corpuscular HGB Conc 33 g/dL N 31-36 Red Cell Distribution Width 16 % High 10.5-15 Platelet Count 226 10^3/uL N 150-450 Mean Platelet Volume 10 um3 N 7.4-10.4 Abs Neutrophils 7.1 10^3/uL N 1.5-7.7 Abs Lymphocytes 1.8 10^3/uL N 1.0-4.8 Abs Monocytes 0.8 10^3/uL N 0-0.8 Abs Eosinophils 0.3 10^3/uL N 0-0.6 Abs Basophils 0.1 10^3/uL N 0-0.2 Abs Nucleated RBC 0 10^3/uL N Granulocyte % 70.3 % N 38-83 Lymphocyte % 18.2 % Low 25-47 Monocyte % 7.7 % N 1-9 Eosinophil % 3.0 % N 0-6 Basophil % 0.8 % N 0-2 Nucleated Red Blood Cells % 0 N Laboratory test 07/21/2016 [facility] Magnesium 2.1 mg/dL N 1.9-2.7 [address] [place] [address] [phone] Comp Metabolic 05/27/2016 [facility] Sodium 130 mmol/L Low 133 -[address] [place] [address] [phone] Potassium 4.0 mmol/L N 3.5-5.0 Chloride 98 mmol/L Low 101-111 Co2 Carbon Dioxide 20 mmol/L Low 22-32 Anion Gap 12 mmol/L High 2-11 Glucose 281 mg/dL High 70-100 Blood Urea Nitrogen 32 mg/dL High 6-24 Creatinine 1.52 mg/dL High 0.51-0.95 BUN/Creatinine Ratio 21.1 High 8-20 Calcium 9.0 mg/dL N 8.6-10.3 Total Protein 6.4 g/dL N 6.4-8.9 Albumin 3.3 g/dL N 3.2-5.2 Globulin 3.1 g/dL N 2-4 Albumin/Globulin Ratio 1.1 N 1-3 Total Bilirubin 0.50 mg/dL N 0.2-1.0 Alkaline Phosphatase 114 U/L High 34-104 Alt 14 U/L N 7-52 Ast 17 U/L N 13-39 Egfr Non- 32.6 N >60 Egfr 41.9 N >60 29 CBC Auto 05/27/2016 [facility] White Blood 14.2 10^3/uL High 3.5-10.[address] [place] [address] [phone] Red Blood Count 4.24 10^6/uL N 4.0-5.4 Hemoglobin 12.7 g/dL N 12.0-16.0 Hematocrit 39 % N 35-47 Mean Corpuscular Volume 91 fL N 80-97 Mean Corpuscular Hemoglobin 30 pg N 27-31 Mean Corpuscular HGB Conc 33 g/dL N 31-36 Red Cell Distribution Width 16 % High 10.5-15 Platelet Count 198 10^3/uL N 150-450 Mean Platelet Volume 10 um3 N 7.4-10.4 Abs Neutrophils 12.6 10^3/uL High 1.5-7.7 Abs Lymphocytes 0.6 10^3/uL Low 1.0-4.8 Abs Monocytes 1.0 10^3/uL High 0-0.8 Abs Eosinophils 0 10^3/uL N 0-0.6 Abs Basophils 0.1 10^3/uL N 0-0.2 Abs Nucleated RBC 0.02 10^3/uL N Granulocyte % 88.5 % High 38-83 Lymphocyte % 4.0 % Low 25-47 Monocyte % 6.9 % N 1-9 Eosinophil % 0.2 % N 0-6 Basophil % 0.4 % N 0-2 Nucleated Red Blood Cells % 0.2 N Urine Microalbumin 05/05/2016 [facility] Urine Creatinine 148.63 mg/dL N Random [address] [place] [address] [phone] Ur Microalbumin (mg/L) 94.7 mg/L N Urine Microalbumin/Creatinine 63.7 ug/mg High <31 Laboratory test 04/29/2016 [facility] Hemoglobin A1c 7.9 High 5-7 finding CBC Auto Diff 03/24/2016 [facility] White Blood Count 9.0 N 3.5-10.[address] 10^3/[place] [address] [phone] Red Blood Count 4.30 10^6/uL N 4.0-5.4 Hemoglobin 12.9 g/dL N 12.0-16.0 Hematocrit 40 % N 35-47 Mean Corpuscular Volume 92 fL N 80-97 Mean Corpuscular Hemoglobin 30 pg N 27-31 Mean Corpuscular HGB Conc 33 g/dL N 31-36 Red Cell Distribution Width 14 % N 10.5-15 Platelet Count 270 10^3/uL N 150-450 Mean Platelet Volume 9 um3 N 7.4-10.4 Abs Neutrophils 6.2 10^3/uL N 1.5-7.7 Abs Lymphocytes 1.7 10^3/uL N 1.0-4.8 Abs Monocytes 0.9 10^3/uL High 0-0.8 Abs Eosinophils 0.2 10^3/uL N 0-0.6 Abs Basophils 0.1 10^3/uL N 0-0.2 Abs Nucleated RBC 0.01 10^3/uL N Granulocyte % 68.9 % N 38-83 Lymphocyte % 18.4 % Low 25-47 Monocyte % 10.0 % High 1-9 Eosinophil % 1.9 % N 0-6 Basophil % 0.8 % N 0-2 Nucleated Red Blood Cells % 0.1 N Laboratory test 03/24/2016 [facility] B-Type 292 pg/mL High [address] [place] [address] Peptide BNP [phone] Comp Metabolic 03/24/2016 [facility] Sodium 138 mmol/L N 133- [address] [place] [address] [phone] Potassium 4.1 mmol/L N 3.5-5.0 Chloride 101 mmol/L N 101-111 Co2 Carbon Dioxide 24 mmol/L N 22-32 Anion Gap 13 mmol/L High 2-11 Glucose 143 mg/dL High 70-100 Blood Urea Nitrogen 34 mg/dL High 6-24 Creatinine 1.45 mg/dL High 0.51-0.95 BUN/Creatinine Ratio 23.4 High 8-20 Calcium 9.6 mg/dL N 8.6-10.3 Total Protein 6.8 g/dL N 6.4-8.9 Albumin 3.4 g/dL N 3.2-5.2 Globulin 3.4 g/dL N 2-4 Albumin/Globulin Ratio 1.0 N 1-3 Total Bilirubin 0.50 mg/dL N 0.2-1.0 Alkaline Phosphatase 190 U/L High 34-104 Alt 29 U/L N 7-52 Ast 26 U/L N 13-39 Egfr Non- 34.5 N >60 Egfr 44.4 N >60 31 Laboratory test 01/21/2016 [facility] Hemoglobin A1c 8.2 High 5-7 finding Lipid Profile 12/12/2015 [facility] Triglycerides 209 mg/dL N 32 (Trig/Chol/HDL) [address] [place] [address] [phone] Cholesterol 164 mg/dL N 33 HDL Cholesterol 45.4 mg/dL N 34 LDL Cholesterol 77 mg/dL N 35 Comp Metabolic Panel 12/12/2015 [facility] Sodium 138 mmol/L N 133-[address] [place] [address] [phone] Potassium 4.5 mmol/L N 3.5-5.0 Chloride 104 mmol/L N 101-111 Co2 Carbon Dioxide 26 mmol/L N 22-32 Anion Gap 8 mmol/L N 2-11 Glucose 188 mg/dL High 70-100 Blood Urea Nitrogen 26 mg/dL High 6-24 Creatinine 1.20 mg/dL High 0.51-0.95 BUN/Creatinine Ratio 21.7 High 8-20 Calcium 9.5 mg/dL N 8.6-10.3 Total Protein 6.7 g/dL N 6.4-8.9 Albumin 4.1 g/dL N 3.2-5.2 Globulin 2.6 g/dL N 2-4 Albumin/Globulin Ratio 1.6 N 1-3 Total Bilirubin 0.60 mg/dL N 0.2-1.0 Alkaline Phosphatase 90 U/L N 34-104 Alt 15 U/L N 7-52 Ast 17 U/L N 13-39 Egfr Non- 42.9 N >60 Egfr 55.2 N >60 36 Lipid Panel - 12/12/2015 [facility] Creatine 48 U/L N 10-223 [address] Kinase(CK) [place] [address] [phone] Laboratory test 05/13/2015 [facility] Magnesium 1.9 N 1.9-2.7 [address] mg/[place] [address] [phone] CBC Auto Diff 05/13/2015 [facility] White Blood 6.7 N 4.8- 10.[address] Count 10^3/[place] [address] [phone] Red Blood Count 4.75 10^6/uL N 4.0-5.4 Hemoglobin 14.1 g/dL N 12.0-16.0 Hematocrit 44 % N 35-47 Mean Corpuscular Volume 93 fL N 80-97 Mean Corpuscular Hemoglobin 30 pg N 27-31 Mean Corpuscular HGB Conc 32 g/dL N 31-36 Red Cell Distribution Width 15 % N 10.5-15 Platelet Count 169 10^3/uL N 150-450 Mean Platelet Volume 10 um3 N 7.4-10.4 Abs Neutrophils 4.2 10^3/uL N 1.5-7.7 Abs Lymphocytes 1.5 10^3/uL N 1.0-4.8 Abs Monocytes 0.7 10^3/uL N 0-0.8 Abs Eosinophils 0.3 10^3/uL N 0-0.6 Abs Basophils 0 10^3/uL N 0-0.2 Abs Nucleated RBC 0 10^3/uL N Granulocyte % 63.1 % N 38-83 Lymphocyte % 22.0 % Low 25-47 Monocyte % 10.5 % High 1-9 Eosinophil % 3.8 % N 0-6 Basophil % 0.6 % N 0-2 Nucleated Red Blood Cells % 0 N Comp Metabolic Panel 05/13/2015 [facility] Sodium 136 mmol/L N 133-[address] [place] [address] [phone] Potassium 4.6 mmol/L N 3.5-5.0 Chloride 105 mmol/L N 101-111 Co2 Carbon Dioxide 23 mmol/L N 22-32 Anion Gap 8 mmol/L N 2-11 Glucose 180 mg/dL High 70-100 Blood Urea Nitrogen 26 mg/dL High 6-24 Creatinine 1.17 mg/dL High 0.51-0.95 BUN/Creatinine Ratio 22.2 High 8-20 Calcium 9.0 mg/dL N 8.6-10.3 Total Protein 6.5 g/dL N 6.4-8.9 Albumin 3.7 g/dL N 3.2-5.2 Globulin 2.8 g/dL N 2-4 Albumin/Globulin Ratio 1.3 N 1-3 Total Bilirubin 0.40 mg/dL N 0.2-1.0 Alkaline Phosphatase 104 U/L N 34-104 Alt 15 U/L N 7-52 Ast 18 U/L N 13-39 Egfr Non- 44.2 N >60 Egfr 56.8 N >60 39 Comp Metabolic Panel 09/07/2014 [facility] Sodium 136 mmol/L N 133-[address] [place] [address] [phone] Potassium 4.6 mmol/L N 3.5-5.0 Chloride 101 mmol/L N 101-111 Co2 Carbon Dioxide 27 mmol/L N 22-32 Anion Gap 8 mmol/L N 2-11 Glucose 156 mg/dL High 70-100 Blood Urea Nitrogen 29 mg/dL High 6-24 Creatinine 1.39 mg/dL High 0.51-0.95 BUN/Creatinine Ratio 20.9 High 8-20 Calcium 9.6 mg/dL N 8.6-10.3 Total Protein 7.5 g/dL N 6.4-8.9 Albumin 4.0 g/dL N 3.2-5.2 Globulin 3.5 g/dL N 2-4 Albumin/Globulin Ratio 1.1 N 1-3 Total Bilirubin 0.40 mg/dL N 0.2-1.0 Alkaline Phosphatase 96 U/L N 34-104 Alt 18 U/L N 7-52 Ast 18 U/L N 13-39 Egfr Non- 36.3 N >60 Egfr 46.7 N >60 41 Laboratory test 09/07/2014 [facility] Magnesium 2.0 mg/dL N 1.9-2.[address] [place] [address] [phone] CBC Auto Diff 09/07/2014 [facility] White Blood 10.1 N 4.8- 10.[address] Count 10^3/[place] [address] [phone] Red Blood Count 4.67 10^6/uL N 4.0-5.4 Hemoglobin 14.8 g/dL N 12.0-16.0 Hematocrit 44 % N 35-47 Mean Corpuscular Volume 95 fL N 80-97 Mean Corpuscular Hemoglobin 32 pg High 27-31 Mean Corpuscular HGB Conc 34 g/dL N 31-36 Red Cell Distribution Width 14 % N 10.5-15 Platelet Count 231 10^3/uL N 150-450 Mean Platelet Volume 10 um3 N 7.4-10.4 Abs Neutrophils 7.5 10^3/uL N 1.5-7.7 Abs Lymphocytes 1.5 10^3/uL N 1.0-4.8 Abs Monocytes 0.8 10^3/uL N 0-0.8 Abs Eosinophils 0.2 10^3/uL N 0-0.6 Abs Basophils 0.1 10^3/uL N 0-0.2 Abs Nucleated RBC 0 10^3/uL N Granulocyte % 74.5 % N 38-83 Lymphocyte % 14.5 % Low 25-47 Monocyte % 8.1 % N 1-9 Eosinophil % 1.8 % N 0-6 Basophil % 1.1 % N 0-2 Nucleated Red Blood Cells % 0 N Laboratory test 09/07/2014 [facility] B Type Natriuretic 93 pg/ mL N [address] [place] [address] [phone] Digoxin 0.4 ng/ml Low 0.8-2.0 1 in 2 weeks Copy Result to: NEIDA CHANEY ([id number]) 2 in 2 weeks Copy Result to: NEIDA CHANEY ([id number]) 3 Because ethnic data is not always readily available, this report includes an eGFR for both -Americans and non- Americans. The National Kidney Disease Education Program (NKDEP) does not endorse the use of the MDRD equation for patients that are not between the ages of 18 and 70, are , have extremes of body size, muscle mass, or nutritional status, or are non- or non-. According to the National Kidney Foundation, irrespective of diagnosis, the stage of the disease is based on the level of kidney function: Stage Description GFR(mL/min/1.73 m(2)) 1 Kidney damage with normal or decreased GFR 90 2 Kidney damage with mild decrease in GFR 60-89 3 Moderate decrease in GFR 30-59 4 Severe decrease in GFR 15-29 5 Kidney failure <15 (or dialysis) 4 Because ethnic data is not always readily available, this report includes an eGFR for both -Americans and non- Americans. The National Kidney Disease Education Program (NKDEP) does not endorse the use of the MDRD equation for patients that are not between the ages of 18 and 70, are , have extremes of body size, muscle mass, or nutritional status, or are non- or non-. According to the National Kidney Foundation, irrespective of diagnosis, the stage of the disease is based on the level of kidney function: Stage Description GFR(mL/min/1.73 m(2)) 1 Kidney damage with normal or decreased GFR 90 2 Kidney damage with mild decrease in GFR 60-89 3 Moderate decrease in GFR 30-59 4 Severe decrease in GFR 15-29 5 Kidney failure <15 (or dialysis) 5 FASTING Copy Result to: NEIDA CHANEY ([id number]) 6 Because ethnic data is not always readily available, this report includes an eGFR for both -Americans and non- Americans. The National Kidney Disease Education Program (NKDEP) does not endorse the use of the MDRD equation for patients that are not between the ages of 18 and 70, are , have extremes of body size, muscle mass, or nutritional status, or are non- or non-. According to the National Kidney Foundation, irrespective of diagnosis, the stage of the disease is based on the level of kidney function: Stage Description GFR(mL/min/1.73 m(2)) 1 Kidney damage with normal or decreased GFR 90 2 Kidney damage with mild decrease in GFR 60-89 3 Moderate decrease in GFR 30-59 4 Severe decrease in GFR 15-29 5 Kidney failure <15 (or dialysis) 7 Desirable: <150 Borderline High: 150-199 High: 200-499 Very High: >500 8 Desirable: <200 Borderline High: 200-239 High: >239 9 Low: <40 Desirable: 40-60 High: >60 10 Desirable: <100 Near Optimal: 100-129 Borderline High: 130-159 High: 160-189 Very High: >189 11 FASTING Copy Result to: NEIDA CHANEY ([id number]) 12 >100 to <200 pg/mL: likely compensated congestive heart failure (CHF) 200 to 400 pg/mL: likely moderate CHF >400 pg/mL: likely moderate to severe CHF 13 [id number] 14 Desirable <150 Borderline high 150-199 High 200-499 Very High >500 15 Desirable <200 Borderline high 200-239 High >239 16 Low <40 Desirable: 40-60 High: >60 17 Desirable: <100 mg/dL Near Optimal: 100-129 mg/dL Borderline High: 130-159 mg/dL High: 160-189 mg/dL Very High: >189 mg/dL 18 Because ethnic data is not always readily available, this report includes an eGFR for both -Americans and non- Americans. The National Kidney Disease Education Program (NKDEP) does not endorse the use of the MDRD equation for patients that are not between the ages of 18 and 70, are , have extremes of body size, muscle mass, or nutritional status, or are non- or non-. According to the National Kidney Foundation, irrespective of diagnosis, the stage of the disease is based on the level of kidney function: Stage Description GFR(mL/min/1.73 m(2)) 1 Kidney damage with normal or decreased GFR 90 2 Kidney damage with mild decrease in GFR 60-89 3 Moderate decrease in GFR 30-59 4 Severe decrease in GFR 15-29 5 Kidney failure <15 (or dialysis) 19 [employer] Manager: [id number] 20 Because ethnic data is not always readily available, this report includes an eGFR for both -Americans and non- Americans. The National Kidney Disease Education Program (NKDEP) does not endorse the use of the MDRD equation for patients that are not between the ages of 18 and 70, are , have extremes of body size, muscle mass, or nutritional status, or are non- or non-. According to the National Kidney Foundation, irrespective of diagnosis, the stage of the disease is based on the level of kidney function: Stage Description GFR(mL/min/1.73 m(2)) 1 Kidney damage with normal or decreased GFR 90 2 Kidney damage with mild decrease in GFR 60-89 3 Moderate decrease in GFR 30-59 4 Severe decrease in GFR 15-29 5 Kidney failure <15 (or dialysis) 21 Unable to report test result due to hemolysis. 22 FASTING 23 Because ethnic data is not always readily available, this report includes an eGFR for both -Americans and non- Americans. The National Kidney Disease Education Program (NKDEP) does not endorse the use of the MDRD equation for patients that are not between the ages of 18 and 70, are , have extremes of body size, muscle mass, or nutritional status, or are non- or non-. According to the National Kidney Foundation, irrespective of diagnosis, the stage of the disease is based on the level of kidney function: Stage Description GFR(mL/min/1.73 m(2)) 1 Kidney damage with normal or decreased GFR 90 2 Kidney damage with mild decrease in GFR 60-89 3 Moderate decrease in GFR 30-59 4 Severe decrease in GFR 15-29 5 Kidney failure <15 (or dialysis) 24 Desirable <150 Borderline high 150-199 High 200-499 Very High >500 25 Desirable <200 Borderline high 200-239 High >239 26 Low <40 Desirable: 40-60 High: >60 27 Desirable: <100 mg/dL Near Optimal: 100-129 mg/dL Borderline High: 130-159 mg/dL High: 160-189 mg/dL Very High: >189 mg/dL 28 FASTING 29 Because ethnic data is not always readily available, this report includes an eGFR for both -Americans and non- Americans. The National Kidney Disease Education Program (NKDEP) does not endorse the use of the MDRD equation for patients that are not between the ages of 18 and 70, are , have extremes of body size, muscle mass, or nutritional status, or are non- or non-. According to the National Kidney Foundation, irrespective of diagnosis, the stage of the disease is based on the level of kidney function: Stage Description GFR(mL/min/1.73 m(2)) 1 Kidney damage with normal or decreased GFR 90 2 Kidney damage with mild decrease in GFR 60-89 3 Moderate decrease in GFR 30-59 4 Severe decrease in GFR 15-29 5 Kidney failure <15 (or dialysis) 30 >100 to <200 pg/mL: likely compensated congestive heart failure (CHF) 200 to 400 pg/mL: likely moderate CHF >400 pg/mL: likely moderate to severe CHF 31 Because ethnic data is not always readily available, this report includes an eGFR for both -Americans and non- Americans. The National Kidney Disease Education Program (NKDEP) does not endorse the use of the MDRD equation for patients that are not between the ages of 18 and 70, are , have extremes of body size, muscle mass, or nutritional status, or are non- or non-. According to the [employer], irrespective of diagnosis, the stage of the disease is based on the level of kidney function: Stage Description GFR(mL/min/1.73 m(2)) 1 Kidney damage with normal or decreased GFR 90 2 Kidney damage with mild decrease in GFR 60-89 3 Moderate decrease in GFR 30-59 4 Severe decrease in GFR 15-29 5 Kidney failure <15 (or dialysis) 32 Desirable <150 Borderline high 150-199 High 200-499 Very High >500 33 Desirable <200 Borderline high 200-239 High >239 34 Low <40 Desirable: 40-60 High: >60 35 Desirable: <100 mg/dL Near Optimal: 100-129 mg/dL Borderline High: 130-159 mg/dL High: 160-189 mg/dL Very High: >189 mg/dL 36 Because ethnic data is not always readily available, this report includes an eGFR for both -Americans and non- Americans. The National Kidney Disease Education Program (NKDEP) does not endorse the use of the MDRD equation for patients that are not between the ages of 18 and 70, are , have extremes of body size, muscle mass, or nutritional status, or are non- or non-. According to the National Kidney Foundation, irrespective of diagnosis, the stage of the disease is based on the level of kidney function: Stage Description GFR(mL/min/1.73 m(2)) 1 Kidney damage with normal or decreased GFR 90 2 Kidney damage with mild decrease in GFR 60-89 3 Moderate decrease in GFR 30-59 4 Severe decrease in GFR 15-29 5 Kidney failure <15 (or dialysis) 37 FASTING cc: Dr. Chaney in 1 m Copy Result to: NEIDA CHANEY ([id number]) 38 cc: Dr. Guillory 39 Because ethnic data is not always readily available, this report includes an eGFR for both -Americans and non- Americans. The National Kidney Disease Education Program (NKDEP) does not endorse the use of the MDRD equation for patients that are not between the ages of 18 and 70, are , have extremes of body size, muscle mass, or nutritional status, or are non- or non-. According to the National Kidney Foundation, irrespective of diagnosis, the stage of the disease is based on the level of kidney function: Stage Description GFR(mL/min/1.73 m(2)) 1 Kidney damage with normal or decreased GFR 90 2 Kidney damage with mild decrease in GFR 60-89 3 Moderate decrease in GFR 30-59 4 Severe decrease in GFR 15-29 5 Kidney failure <15 (or dialysis) 40 WITHIN 1 WEEK CC PMD 41 Because ethnic data is not always readily available, this report includes an eGFR for both -Americans and non- Americans. The National Kidney Disease Education Program (NKDEP) does not endorse the use of the MDRD equation for patients that are not between the ages of 18 and 70, are , have extremes of body size, muscle mass, or nutritional status, or are non- or non-. According to the National Kidney Foundation, irrespective of diagnosis, the stage of the disease is based on the level of kidney function: Stage Description GFR(mL/min/1.73 m(2)) 1 Kidney damage with normal or decreased GFR 90 2 Kidney damage with mild decrease in GFR 60-89 3 Moderate decrease in GFR 30-59 4 Severe decrease in GFR 15-29 5 Kidney failure <15 (or dialysis) 42 >100 to <200 pg/mL: likely compensated congestive heart failure (CHF) 200 to 400 pg/mL: likely moderate CHF >400 pg/mL: likely moderate to severe CHF [place] [facility] Procedures Date Code Description Status 10/04/2018 61530 EKG Tracing & Interpretation Completed 07/04/2018 63517 EKG Tracing & Interpretation Completed 04/27/2018 [id number] Diabetic Retinal Eye Exam Completed 03/10/2018 473016099 Diabetic Retinal Eye Exam Completed 01/07/2018 73151 ECHO Transthoracic, Real-Time 2D With Doppler And Completed Color Flow 01/07/2018 91346 ECHO Transthoracic, Real-Time 2D With Doppler And Completed Color Flow 12/06/2017 51464 Holter Monitor Review (24 hr)dr review & interp only Completed 11/30/2017 63909 ECG Monitor/Recording W/Visual Superimposition Completed Scanning 11/25/2017 09962 EKG Tracing & Interpretation Completed 10/19/2017 [id number] Diabetic Retinal Eye Exam Completed 05/28/2017 96871 ECHO Transthoracic, Real-Time 2D With Doppler And Completed Color Flow 04/20/2017 80804 EKG Tracing & Interpretation Completed 02/09/2017 [id number] Diabetic Retinal Eye Exam Completed 06/10/2016 52673 EKG Tracing & Interpretation Completed 12/09/2015 57079 Holter Monitor Review (24 hr)dr review & interp only Completed 12/05/2015 48526 ECG Monitor/Recording W/Visual Superimposition Completed Scanning 11/06/2015 09618 EKG Tracing & Interpretation Completed 05/24/2015 46278 ECHO Transthoracic, Real-Time 2D With Doppler And Completed Color Flow 04/29/2015 82791 EKG Tracing & Interpretation Completed 01/22/2015 67034 Holter Monitor Review (24 hr)dr review & interp only Completed 01/22/2015 84675 ECG Monitor/Recording W/Visual Superimposition Completed Scanning 01/21/2015 00517 Holter Monitor Review (24 hr)dr review & interp only Completed 01/21/2015 11839 ECG Monitor/Recording W/Visual Superimposition Completed Scanning 10/08/2014 63109 Holter Monitor Review (24 hr)dr review & interp only Completed 10/08/2014 97138 ECG Monitor/Recording W/Visual Superimposition Completed Scanning 09/03/2014 08514 EKG Tracing & Interpretation Completed 08/27/2014 97625 EKG Tracing & Interpretation Completed 08/06/2014 57348 Holter Monitor Review (24 hr)dr review & interp only Completed 08/06/2014 81040 ECG Monitor/Recording W/Visual Superimposition Completed Scanning 06/13/2014 07886 EKG Tracing & Interpretation Completed 06/01/2014 04110 Echocardiogram, Limited Study Completed 05/17/2014 51847 EKG Tracing & Interpretation Completed 04/23/2014 73730 Stress Test Supervsn W/Out I/R Completed 04/23/2014 60027 Treadmill Interp/Report Only Completed 04/22/2014 28840 ECHO Transthorasic Realtime 2D W Doppler & Color Flow Completed Hosp 04/21/2014 89696 EKG, Interpretation Only Completed 04/17/2013 [id number] Bone Mineral Density Test Completed 12/01/2012 72428 Rad Exam; Hip Unilat Completed 12/01/2012 00928 Rad Exam; Pelvis Completed 10/31/2012 35313 THR Total Hip Replacement Completed 10/31/2012 14771 THR Total Hip Replacement Completed 01/13/2012 77751 Rad Exam; Hip Unilat Completed 01/13/2012 88956 Rad Exam; Pelvis Completed Encounters Type Date Location Provider Dx Diagnosis Office Visit 09/30/2018 [facility] Albert Chaney, J40 Bronchitis, not 11:30a Medicine - [place] MHaile,FACP specified as acute Rd or chronic E11.65 Type 2 diabetes mellitus with hyperglycemia I48.2 Chronic atrial fibrillation Office Visit 07/04/2018 1:30p [facility] Ramona SFreya I48.2 Chronic atrial Foster, N.P. fibrillation E78.00 Pure hypercholesterolemia, unspecified R06.00 Dyspnea, unspecified I42.9 Cardiomyopathy, unspecified Office Visit 04/08/2018 4:20p [facility] Albert Mcdonald E11.65 Type 2 diabetes Jeffrey Chaney M.D.,FACP mellitus with [address] hyperglycemia N18.3 Chronic kidney disease, stage 3 (moderate) I10 Essential (primary) hypertension Office Visit 01/27/2018 10:30a [facility] Ramona SFreya I48.2 Chronic atrial Foster, N.P. fibrillation I87.2 Venous insufficiency (chronic) (peripheral) I42.9 Cardiomyopathy, unspecified N18.3 Chronic kidney disease, stage 3 (moderate) I10 Essential (primary) hypertension Office Visit 01/06/2018 1:00p [facility] Airam Mcdonald Z00.01 Encounter for Jeffrey Chaney M.D.,FACP general adult [address] medical exam w abnormal findings N18.3 Chronic kidney disease, stage 3 (moderate) E11.65 Type 2 diabetes mellitus with hyperglycemia I10 Essential (primary) hypertension I65.23 Occlusion and stenosis of bilateral carotid arteries Z00.00 Encntr for general adult medical exam w/o abnormal findings Office Visit 11/25/2017 1:40p [place] Tomás Ramsey I87.2 Venous Cardiology Elliot Hansen insufficiency (chronic) (peripheral) I42.9 Cardiomyopathy, unspecified I34.0 Nonrheumatic mitral (valve) insufficiency E78.00 Pure hypercholesterolemia, unspecified R06.00 Dyspnea, unspecified I10 Essential (primary) hypertension E66.9 Obesity, unspecified I48.2 Chronic atrial fibrillation Office Visit 10/28/2017 3:40p Harika Mcdonald J18.1 Lobar pneumonia, Jeffrey Chaney M.D.,FACP unspecified [address] organism Office Visit 10/06/2017 2:20p Harika Mcdonald E08.51 Diab due to undrl Jeffrey Chaney M.D.,FACP cond w diab prph [address] angiopath w/o gangrene I87.2 Venous insufficiency (chronic) (peripheral) Office Visit 09/29/2017 [facility] Asa 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 R09.89 Oth symptoms and signs involving the circ and resp systems Office Visit 06/11/2017 11:40a [facility] Internal Albert Mcdonald E11.65 Type 2 diabetes Jeffrey Chaney M.D.,FACP mellitus with [address] hyperglycemia I87.311 Chronic venous hypertension w ulcer of r low extrem Z23 Encounter for immunization Office Visit 04/20/2017 Russ Ramsey E11.65 Type 2 diabetes 1:40p Cardiology Elliot Hansen mellitus with hyperglycemia I48.2 Chronic atrial fibrillation I10 Essential (primary) hypertension E66.9 Obesity, unspecified I42.9 Cardiomyopathy, unspecified Office Visit 03/11/2017 [facility] Internal Albert Mcdonald Z01.818 Encounter for other 1:00p Jeffrey Chaney M.D.,FACP preprocedural [address] examination H25.012 Cortical age-related cataract, left eye E11.65 Type 2 diabetes mellitus with hyperglycemia I48.91 Unspecified atrial fibrillation Office Visit 02/26/2017 8:20a [facility] Internal Albert Mcdonald H60.8x2 Other otitis Jeffrey Chaney M.D.,FACP externa, left [address] ear E11.65 Type 2 diabetes mellitus with hyperglycemia Office Visit 02/11/2017 3:40p [facility] Internal Wyatt Angelique, H60.8x2 Other otitis Medicine - FREELANCE WRITER externa, left ear [place] Office Visit 12/09/2016 1:20p [facility] Internal Zenon E11.65 Type 2 diabetes Medicine - [place], FREELANCE WRITER mellitus with Rd hyperglycemia I10 Essential (primary) hypertension I48.2 Chronic atrial fibrillation R60.0 Localized edema Z79.84 [facility] (current) use of oral hypoglycemic drugs Office Visit 09/25/2016 3:00p [facility] Gabriela Ely, I10 Essential (primary) PA hypertension E78.5 Hyperlipidemia, unspecified I48.2 Chronic atrial fibrillation I42.9 Cardiomyopathy, unspecified Office Visit 09/10/2016 1:00p [facility] Internal Albert Mcdonald Z00.01 Encounter for Medicine - [place] Chaney,FACP general adult [address] medical exam w abnormal findings L03.115 Cellulitis of right lower limb E11.65 Type 2 diabetes mellitus with hyperglycemia I10 Essential (primary) hypertension I65.21 Occlusion and stenosis of right carotid artery M54.5 Low back pain Office Visit 09/03/2016 1:00p [facility] Internal Zenon Yemeni, R60.0 Localized edema Medicine - [place] [address] Rd L03.115 Cellulitis of right lower limb Z23 Encounter for immunization Office Visit 08/12/2016 2:20p [facility] Internal Zenon Chavarria, E11.65 Type 2 diabetes Medicine - F[employer]ELANCE WRITER mellitus with [address] hyperglycemia L03.116 Cellulitis of left lower limb Office Visit 08/04/2016 11:40a [facility] Internal Zenon Chavarria, L03.116 Cellulitis of Medicine - FREELANCE WRITER left lower limb [address] Office Visit 07/31/2016 2:20p [facility] Internal Zenon Yemeni, L03.116 Cellulitis of Medicine - F[employer]ELANCE WRITER left lower limb [address] Z23 Encounter for immunization S81.832A Puncture wound w/o foreign body, left lower leg, init encntr Office Visit 06/10/2016 11:20a [facility] Tomás Cornejo18.9 PneumoniaTyrone M.D. unspecified organism E11.65 Type 2 diabetes mellitus with hyperglycemia R60.0 Localized edema E78.0 Pure hypercholesterolemia I10 Essential (primary) hypertension Office Visit 06/01/2016 11:40a [facility] Internal Zenon Yemeni, J18.9 Pneumonia, Medicine - [place] F[employer]ELANCE WRITER unspecified Rd organism R05 Cough Office Visit 05/27/2016 3:20p [facility] Internal Zenon Chavarria, J18.9 Pneumonia, Medicine - [place] F[employer]ELANCE WRITER unspecified Rd organism R05 Cough R06.2 Wheezing Office Visit 05/18/2016 12:40p [facility] Internal Zenon Chavarria, J20.9 Acute bronchitis, Medicine - F[employer]ELANCE WRITER unspecified [address] Office Visit 05/13/2016 11:40a [facility] Internal Zenon Chavarria, J20.9 Acute bronchitis, Medicine - F[employer]ELANCE WRITER unspecified [address] Office Visit 04/29/2016 11:10a [facility] Internal Albert Mcdonald E11.65 Type 2 diabetes Jeffrey Chaney, mellitus with [address] MHaile,FACP hyperglycemia I87.2 Venous insufficiency (chronic) (peripheral) Office Visit 04/06/2016 11:00a [facility] Internal Zenon Chavarria, I87.2 Venous Medicine - F[employer]ELANCE WRITER insufficiency [address] (chronic) (peripheral) Office Visit 03/24/2016 2:40p [facility] Internal Zenon Chavarria, R60.0 Localized edema Medicine - F[employer]ELANCE [employer] Office Visit 03/19/2016 1:40p [facility] Internal Maxx L03.116 Cellulitis of left Medicine - [place], lower limb [address] M.D. Office Visit 03/04/2016 3:40p [facility] Internal Zenon Chavarria, L03.115 Cellulitis of right Medicine - F[employer]ELANCE WRITER lower limb [address] L03.116 Cellulitis of left lower limb L30.4 Erythema intertrigo Office Visit 02/19/2016 2:40p [facility] Internal Zenon Chavarria, L03.115 Cellulitis of Medicine - F[employer]ELANCE WRITER right lower limb [address] L03.116 Cellulitis of left lower limb Office Visit 01/21/2016 [facility] Internal Albert Mcdonald E11.65 Type 2 diabetes 2:20p Jeffrey Chaney M.D.,FACP mellitus with [place] hyperglycemia I10 Essential (primary) hypertension I48.2 Chronic atrial fibrillation Z23 Encounter for immunization R73.9 Hyperglycemia, unspecified Office Visit 12/16/2015 2:30p [facility] Gabriela Ely, I48.2 Chronic atrial PA fibrillation I10 Essential (primary) hypertension E78.0 Pure hypercholesterolemia 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 R73.9 Hyperglycemia, unspecified Office Visit 11/06/2015 10:00a [facility] Tomás Ramsey I48.2 Chronic atrial Elliot Hansen fibrillation I34.0 Nonrheumatic mitral (valve) insufficiency I10 Essential (primary) hypertension 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 E78.0 Pure hypercholesterolemia Office Visit 04/29/2015 3:20p Russ Ramsey 427.31 Atrial Cardiology Elliot Hansen Fibrillation 401.9 Hypertension Unspec 424.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 425.4 Cardiomyopathy Other Prim Office Visit 10/23/2014 11:00a [facility] Gabriela Ely 427.31 Atrial PA Fibrillation 401.9 Hypertension Unspec 424.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 Office Visit 09/03/2014 2:00p Russ Ramsey 427.Cathy Atrial Cardiology Elliot Hansen Fibrillation 401.9 Hypertension Unspec 424.0 Mitral Valve Disorder 782.3 Edema 425.4 Cardiomyopathy Other Prim 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 Office Visit 08/27/2014 1:00p [facility] Nurse Visit 427.31 Atrial Fibrillation cc 401.9 Hypertension Unspec Office Visit 07/30/2014 2:00p [place] Nurse Visit cc 427.31 Atrial Cardiology Fibrillation Office Visit 07/26/2014 1:30p Russ Ramsey 427.Cathy Atrial Cardiology Elliot Hansen Fibrillation 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 401.9 Hypertension Unspec Office Visit 07/10/2014 11:30a [facility] Gabriela Ely 427.31 Atrial PA Fibrillation 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 Embolism W/ Cerebral Infarc 427.31 Atrial Fibrillation Office Visit 04/21/2014 2:08p [place] Tomás Ramsey 427.31 Atrial Cardiology Elliot Hansen Fibrillation 436 Cerebrovascular Disease Acute Ill-Defined 401.1 Hypertension Benign Office Visit 04/20/2014 4:16p [place] [facility] Bridget Jackson 427.31 Atrial Assoc,pc N.P. 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 Embolism W/ Cerebral Infarc 427.31 Atrial Fibrillation Office Visit 04/20/2014 [place] Tomás Ramsey 427.31 Atrial Fibrillation 1:47p Cardiology Elliot Hansen Office Visit 03/22/2013 [facility] As[facility] 715.95 Osteoarthrosis 11:30a Services Of [place] Rodriguez Unspec Genlzd Or C.M.A. Localized Pelvic & Thigh Office Visit 10/26/2012 [facility] 715.95 Osteoarthrosis 10:30a Services Of [place] Rodriguez Unspec Genlzd Or C.M.A. Localized Pelvic & Thigh 724.3 Sciatica Office Visit 07/28/2012 [facility] 715.95 Osteoarthrosis 10:15a Services Of [place] Rodriguez Unspec Genlzd Or C.M.A. Localized Pelvic & Thigh Office Visit 04/27/2012 [facility] 715.95 Osteoarthrosis 10:15a Services Of [place] Rodriguez Unspec Genlzd Or C.M.A. Localized Pelvic & Thigh Office Visit 01/13/2012 [facility] 715.95 Osteoarthrosis 9:00a Services Of Elliot Rodriguez Unspec Genlzd Or C.M.A. Localized Pelvic & Thigh Plan of Treatment Future Appointment(s):11/09/2018 10:30 am - Ramona Frost, N.P. at [facility]10/14/2018 1:30 pm - Nurse Visit cc at [facility]10/13/2018 3 :00 pm - Nurse Visit cc at [facility]10/21/2018 1:00 pm - [place] ECHO Schedule at [facility]12/29/2018 10:40 am - GLENIS Tran at [facility] Internal Medicine - [address]10/04/2018 - Tomás Hansen M.D.E11.65 Type 2 diabetes mellitus with [id number] Chronic atrial fibrillationFollow up: ov Ramona 1 m ov JFM 5 mE78.00 Pure hypercholesterolemia, orrsmsmtvhfK91.00 Dyspnea, unspecifiedNew Orders:Echocardiogram, Scheduled: 10/21/18I42.9 Cardiomyopathy, knbwhltchcrV71.9 Edema, esfprzyflygP61.9 Heart failure, kvvavzeejjaY28.3 Ventricular premature depolarizationNew Orders:24 hour holter monitor, Scheduled: 10/13/18
[2018-10-23] MEDS ORDERED: NS 0.9% 1000 ML** 1,000 ML IV ONE ×3 (13:45→15:35)
[2018-10-23] MEDS ORDERED: Insulin REGULAR(*) 1 UNITS UNIT IV PUSH ONE (13:52)
[2018-10-23 13:55] LABS: Hematocrit 37 % (35-47); Hemoglobin 11.5 g/dl (12.0-16.0); Mean Corpuscular HGB Conc 31 g/dl (31-36); Mean Corpuscular Hemoglobin 28 pg (27-31); Mean Corpuscular Volume 89 fL (80-97); Mean Platelet Volume 8.7 fL (7.4-10.4); Platelet Count 420 10^3/ul (150-450); Red Cell Distribution Width 16 % (10.5-15); White Blood Count 16.7 10^3/ul (3.5-10.8)
[2018-10-23 14:00] LABS: INR 1.21 (0.77-1.02)
[2018-10-23] MEDS ORDERED: Insulin IVPB 100 units/100 ml 100 UNITS/100 ML UNIT IVPB ONE (14:04)
[2018-10-23] MEDS ORDERED: Cefepime(*) 2 GM in NS 0.9% 50 ML* 50 ML IVPB ONE (14:05)
[2018-10-23] MEDS ORDERED: metroNIDAZOLE IV 500 MG/100ML* 500 MG/100 ML BAG IVPB ONE (14:05)
[2018-10-23 14:11] LABS: Albumin 2.7 g/dL (3.2-5.2); Albumin/Globulin Ratio 0.8 (1-3); BUN/Creatinine Ratio 29.3 (8-20); C Reactive Protein 359.39 mg/L (<8.01); Calcium 8.9 mg/dL (8.6-10.3); EGFR African American 43.1 (>60); EGFR Non-African American 35.7 (>60); Globulin 3.5 g/dL (2-4); Magnesium 1.7 mg/dL (1.9-2.7); Potassium 4.1 mmol/L (3.5-5.0); Total Bilirubin 0.5 mg/dL (0.2-1.0); Total Protein 6.2 g/dL (6.4-8.9)
[2018-10-23 14:13] LABS: Troponin I 0.03 ng/mL (<0.04)
[2018-10-23 14:23] LABS: ABS Basophils 0.2 10^3/ul (0-0.2); ABS Eosinophils 0 10^3/ul (0-0.6); ABS Lymphocytes 0.7 10^3/ul (1.0-4.8); ABS Monocytes 1.2 10^3/ul (0-0.8); ABS Neutrophils 14.6 10^3/ul (1.5-7.7); ABS Nucleated RBC 0 10^3/ul; Eosinophil % 0 %; Lymphocyte % 4.1 %; Nucleated Red Blood Cells % 0
--- NOTE | 2018-10-23 14:26 | ED ---
Sepsis HPI - HPI Summary HPI Summary: Pt is an 88 y/o female brought in by EMS who presents to the ED c/o weakness. As per friend, she has been very weak and has not been able to answer questions properly for the past 5 days. Pt also has had a fever, urinary incontinence, foul-smelling urine, and urinary urgency. She denies any nausea, abdominal pain , or SOB. She also fell 2 days ago without a head injury. PMHx DM, and currently has high blood sugar. Ever since her Trulicity prescription was increased pt has had a decrease in appetite. - History of Current Complaint Chief Complaint: EDWeakness Time Seen by Provider: 10/23/18 13:41 Stated Complaint: WEAKNESS Hx Obtained From: Family/Form Tamper Operator - Friend Onset/Duration: Started Days Ago - 5, Still Present Timing: Constant Current Severity: None Pain Intensity: 0 Pain Scale Used: 0-10 Numeric Aggravating Symptom(s): Nothing Alleviating Factor(s): Nothing Associated Signs & Symptoms: Other - fever, incontinence, urinary urgency - Allergy/Home Medications Allergies/Adverse Reactions: Allergies Allergy/AdvReac Type Severity Reaction Status Date / Time Sulfa (Sulfonamide AdvReac Severe GI Upset Verified 10/23/18 15:30 Antibiotics) codeine AdvReac Intermediate GI Upset Verified 10/23/18 15:30 erythromycin base AdvReac Intermediate Nausea Verified 10/23/18 15:30 Penicillins AdvReac Intermediate Nausea Verified 10/23/18 15:30 beans AdvReac Intermediate gas Uncoded 03/30/17 10:26 onions AdvReac Intermediate Gastrointes Uncoded 03/30/17 10:26 tinal. Home Medications: Home Medications Apixaban* [Eliquis*] 2.5 mg PO DAILY 10/23/18 [History Confirmed 10/23/18] Dulaglutide [Trulicity] 1.5 mg SUBCUT WEEKLY 10/23/18 [History Confirmed ] Lisinopril TAB* [Prinivil TAB*] 2.5 mg PO DAILY 10/23/18 [History Confirmed 12/06] Lovastatin [Altoprev] 40 mg PO DAILY 10/23/18 [History Confirmed 10/23/18] Metoprolol Succinate XL TAB* [Toprol XL TAB*] 25 mg PO BID 10/23/18 [History Confirmed 10/23/18] Sitagliptin Phosphate [Januvia] 100 mg PO DAILY 10/23/18 [History Confirmed 12/06] PMH/Surg Hx/FS Hx/Imm Hx Endocrine/Hematology History: Reports: Hx Diabetes Denies: Hx Thyroid Disease Cardiovascular History: Reports: Hx Hypertension, Other Cardiovascular Problems/ Disorders - a-fib, hyperlipidemia Respiratory History: Denies: Hx Asthma, Hx Chronic Obstructive Pulmonary Disease (COPD) GI History: Reports: Hx Diverticulosis, Hx Irritable Bowel, Hx Ulcer - duodenal ulcer History: Reports: Hx Chronic Renal Failure, Other Problems/Disorders - freq UTI's in past Musculoskeletal History: Reports: Hx Arthritis - KNEES, Hx Bursitis - hx of 30 yrs ago Denies: Hx Rheumatoid Arthritis, Hx Osteoporosis Sensory History: Reports: Hx Cataracts - bilateral, Hx Contacts or Glasses - glasses, Hx Hearing Aid - only wears right one - ear infection in left currently Opthamlomology History: Reports: Hx Cataracts - bilateral, Hx Contacts or Glasses - glasses Psychiatric History: Reports: Hx Anxiety - hx of, no meds - Cancer History Cancer Type, Location and Year: 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 - Surgical History Surgery Procedure, Year, and Place: right total hip replacement 2012- [facility] [place]. left total hip replacement 2007 - [place]. vitrectomy- had a hole in center of vision, removed fluid, introduced gas into eye. 2004 - [place]. right cataract extraction with intraocular lens implant - 2003 - [facility] [place]. tonsillectomy as a child. hemorriodectomy in her 20's Hx Anesthesia Reactions: Yes - vertigo after vitrectomy - Immunization History Date of Tetanus Vaccine: PT STATES UNSURE Date of Influenza Vaccine: PT STATES UNSURE Infectious Disease History: No Infectious Disease History: Reports: History Other Infectious Disease - e-coli UTI Denies: Hx Clostridium Difficile, Hx Hepatitis, Hx Human Immunodeficiency Virus (HIV), Hx of Known/Suspected MRSA, Hx Shingles, Hx Tuberculosis, Traveled Outside the [place] in Last 30 Days - Family History Known Family History: Positive: Other - depression, IBS - Social History Alcohol Use: Rare Hx Substance Use: No Substance Use Type: Reports: None Hx Tobacco Use: No Smoking Status (MU): Never Smoked Tobacco Have You Smoked in the Last Year: No Review of Systems Positive: Fever Negative: Shortness Of Breath Negative: Abdominal Pain, Nausea Positive: incontinence, urgency, other - foul-smelling All Other Systems Reviewed And Are Negative: Yes Physical Exam - Summary Physical Exam Summary: Appearance: Well appearing, no pain distress Skin: warm, dry, chronic dermatitis with heavy scaling of BLE Head/face: normal Eyes: EOMI, KISHOR ENT: mucous membranes extremely dry Neck: supple, non-tender Respiratory: crackles left base, shallow respirations, tachypneic Cardiovascular: tachycardic but regular rhythm, pulses symmetrical, 3+ bilateral pitting edema Abdomen: non-tender, soft Bowel Sounds: present Musculoskeletal: normal, strength/ROM intact Neuro: sensory motor intact, A&Ox3, generalized weakness Triage Information Reviewed: Yes Vital Signs On Initial Exam: Initial Vitals Temp Pulse Resp BP Pulse Ox 98.0 F 121 16 140/79 96 10/23/18 13:08 10/23/18 13:08 10/23/18 13:08 10/23/18 13:08 10/23/18 13:08 Vital Signs Reviewed: Yes Diagnostics - Vital Signs Vital Signs Temp Pulse Resp BP Pulse Ox 10/23/18 13:08 98.0 F 121 16 140/79 96 - Laboratory Lab Results: Lab Results 10/23/18 10/23/18 10/23/18 Range/Units 13:43 13:43 13:43 WBC 16.7 H (3.5-10.8) 10^3/ul RBC 4.10 (4.00-5.40) 10^6/ul Hgb 11.5 L (12.0-16.0) g/dl Hct 37 (35-47) % MCV 89 (80-97) fL MCH 28 (27-31) pg MCHC 31 (31-36) g/dl RDW 16 H (10.5-15) % Plt Count 420 (150-450) 10^3/ul MPV 8.7 (7.4-10.4) fL Neut % (Auto) Pending Lymph % (Auto) Pending Turner % (Auto) Pending Eos % (Auto) Pending Baso % (Auto) Pending Absolute Neuts (auto) Pending Absolute Lymphs (auto) Pending Absolute Monos (auto) Pending Absolute Eos (auto) Pending Absolute Basos (auto) Pending Absolute Nucleated RBC Pending Nucleated RBC % Pending INR (Anticoag Therapy) 1.21 H (0.77-1.02) ABG pH (7.35-7.45) ABG pCO2 (35-45) mmHg ABG pO2 (80-100) mmHg ABG HCO3 (19-31) mmol/L ABG O2 Saturation (94.0-98.0) % ABG Base Excess (-2.0-2.0) mmol/L Sodium 131 L (135-145) mmol/L Potassium 4.1 (3.5-5.0) mmol/L Chloride 96 L (101-111) mmol/L Carbon Dioxide 19 L (22-32) mmol/L Anion Gap 16 H (2-11) mmol/L BUN 41 H (6-24) mg/dL Creatinine 1.40 H (0.51-0.95) mg/dL Est GFR ( Amer) 43.1 (>60) Est GFR (Non-Af Amer) 35.7 (>60) BUN/Creatinine Ratio 29.3 H (8-20) Glucose 469 H (70-100) mg/dL POC Glucose (mg/dL) (70-100) mg/dL Glucose Meter Confirm Pending Lactic Acid (0.5-2.0) mmol/L Calcium 8.9 (8.6-10.3) mg/dL Magnesium 1.7 L (1.9-2.7) mg/dL Total Bilirubin 0.50 (0.2-1.0) mg/dL AST 10 L (13-39) U/L ALT 13 (7-52) U/L Alkaline Phosphatase 127 H (34-104) U/L Troponin I 0.03 (<0.04) ng/mL C-Reactive Protein 359.39 H (<8.01) mg/L B-Natriuretic Peptide (<=100) pg/mL Total Protein 6.2 L (6.4-8.9) g/dL Albumin 2.7 L (3.2-5.2) g/dL Globulin 3.5 (2-4) g/dL Albumin/Globulin Ratio 0.8 L (1-3) TSH Pending 10/23/18 10/23/18 10/23/18 Range/Units 13:43 13:43 13:44 WBC (3.5-10.8) 10^3/ul RBC (4.00-5.40) 10^6/ul Hgb (12.0-16.0) g/dl Hct (35-47) % MCV (80-97) fL MCH (27-31) pg MCHC (31-36) g/dl RDW (10.5-15) % Plt Count (150-450) 10^3/ul MPV (7.4-10.4) fL Neut % (Auto) Lymph % (Auto) Turner % (Auto) Eos % (Auto) Baso % (Auto) Absolute Neuts (auto) Absolute Lymphs (auto) Absolute Monos (auto) Absolute Eos (auto) Absolute Basos (auto) Absolute Nucleated RBC Nucleated RBC % INR (Anticoag Therapy) (0.77-1.02) ABG pH (7.35-7.45) ABG pCO2 (35-45) mmHg ABG pO2 (80-100) mmHg ABG HCO3 (19-31) mmol/L ABG O2 Saturation (94.0-98.0) % ABG Base Excess (-2.0-2.0) mmol/L Sodium (135-145) mmol/L Potassium (3.5-5.0) mmol/L Chloride (101-111) mmol/L Carbon Dioxide (22-32) mmol/L Anion Gap (2-11) mmol/L BUN (6-24) mg/dL Creatinine (0.51-0.95) mg/dL Est GFR ( Amer) (>60) Est GFR (Non-Af Amer) (>60) BUN/Creatinine Ratio (8-20) Glucose (70-100) mg/dL POC Glucose (mg/dL) > 444 H* (70-100) mg/dL Glucose Meter Confirm Lactic Acid 1.2 (0.5-2.0) mmol/L Calcium (8.6-10.3) mg/dL Magnesium (1.9-2.7) mg/dL Total Bilirubin (0.2-1.0) mg/dL AST (13-39) U/L ALT (7-52) U/L Alkaline Phosphatase (34-104) U/L Troponin I (<0.04) ng/mL C-Reactive Protein (<8.01) mg/L B-Natriuretic Peptide 276 H (<=100) pg/mL Total Protein (6.4-8.9) g/dL Albumin (3.2-5.2) g/dL Globulin (2-4) g/dL Albumin/Globulin Ratio (1-3) TSH 10/23/18 Range/Units 14:03 WBC (3.5-10.8) 10^3/ul RBC (4.00-5.40) 10^6/ul Hgb (12.0-16.0) g/dl Hct (35-47) % MCV (80-97) fL MCH (27-31) pg MCHC (31-36) g/dl RDW (10.5-15) % Plt Count (150-450) 10^3/ul MPV (7.4-10.4) fL Neut % (Auto) Lymph % (Auto) Turner % (Auto) Eos % (Auto) Baso % (Auto) Absolute Neuts (auto) Absolute Lymphs (auto) Absolute Monos (auto) Absolute Eos (auto) Absolute Basos (auto) Absolute Nucleated RBC Nucleated RBC % INR (Anticoag Therapy) (0.77-1.02) ABG pH 7.42 (7.35-7.45) ABG pCO2 32 L (35-45) mmHg ABG pO2 73 L (80-100) mmHg ABG HCO3 22.7 (19-31) mmol/L ABG O2 Saturation 96.3 (94.0-98.0) % ABG Base Excess -2.8 L (-2.0-2.0) mmol/L Sodium (135-145) mmol/L Potassium (3.5-5.0) mmol/L Chloride (101-111) mmol/L Carbon Dioxide (22-32) mmol/L Anion Gap (2-11) mmol/L BUN (6-24) mg/dL Creatinine (0.51-0.95) mg/dL Est GFR ( Amer) (>60) Est GFR (Non-Af Amer) (>60) BUN/Creatinine Ratio (8-20) Glucose (70-100) mg/dL POC Glucose (mg/dL) (70-100) mg/dL Glucose Meter Confirm Lactic Acid (0.5-2.0) mmol/L Calcium (8.6-10.3) mg/dL Magnesium (1.9-2.7) mg/dL Total Bilirubin (0.2-1.0) mg/dL AST (13-39) U/L ALT (7-52) U/L Alkaline Phosphatase (34-104) U/L Troponin I (<0.04) ng/mL C-Reactive Protein (<8.01) mg/L B-Natriuretic Peptide (<=100) pg/mL Total Protein (6.4-8.9) g/dL Albumin (3.2-5.2) g/dL Globulin (2-4) g/dL Albumin/Globulin Ratio (1-3) TSH Result Diagrams: 10/23/18 13:43 10/23/18 13:43 Lab Statement: Any lab studies that have been ordered have been reviewed, and results considered in the medical decision making process. - Radiology CXR Radiology Interpretation Completed By: Radiologist Summary of Radiographic Findings: Stable degree of mild cardiomegaly relevant to the October 2017 chest x-ray without radiographically apparent acute cardiopulmonary abnormality. ED physician reviewed radiology report. - EKG 14:17 Cardiac Rate: Other Rate - AFib - 115 bpm EKG Rhythm: Atrial Fibrillation ST Segment: Non-Specific EKG Comparison: No Significant Change - As compared to 04/21/14 Summary of EKG Findings: Low voltage, long QT interval Course/Dx - Course Course Of Treatment: Nurse's notes reviewed. Patient with gross hyperglycemia and incontinence likely from urinary tract infection with subsequent sepsis. She received IV fluid resuscitation, IV antibiotics and treatment with insulin. She did not require insulin drip given that she was not acidotic. She requires further IV fluids, antibiotics and admission to the hospital. Discussed with hospitalist who accepts. Urine with 3+ bacteria is apparent source. We will hold any type of vasoactive medicines for her heart rate given given this of sepsis and will add pending her response to IV fluids. - Differential Dx/Clinical Impression Differential Diagnosis/HQI/PQRI: Other - DKA, sepsis/severe sepsis/septic shock , rapid atrial fibrillation, pneumonia, UTI, cellulitis Provider Diagnosis: Severe sepsis, UTI (urinary tract infection), Rapid atrial fibrillation, Hyperglycemia - Provider Notifications Discussed Care Of Patient With: Kaushik Le Time Discussed With Above Provider: 14:38 Instructed by Provider To: Admit As Inpatient - Critical Care Time Critical Care Time: 30-74 min - Critical care time is exclusive of separately billable procedures Discharge - Sign-Out/Discharge Documenting (check all that apply): Patient Departure - Admit Patient Received Moderate/Deep Sedation with Procedure: No - Discharge Plan Condition: Stable Disposition: ADMITTED TO [facility] - Billing Disposition and Condition Condition: STABLE Disposition: Admitted to [facility] - Attestation Statements Document Initiated by Scribe: Yes Documenting Scribe: Sonja Giles Provider For Whom Scribe is Documenting (Include Credential): Simba Chase MD Scribe Attestation: Sonja Millard, scribed for Simba Chase MD on 10/23/18 at 2108. Scribe Documentation Reviewed: Yes Provider Attestation: The documentation as recorded by the Sonja vigil accurately reflects the service I personally performed and the decisions made by Simba crowder MD Status of Scribe Document: Viewed
[2018-10-23 14:58] LABS: TSH (Thyroid Stimulating Horm) 4.11 mcIU/mL (0.34-5.60)
[2018-10-23] MEDS ORDERED: Cefepime 2 GM in Dextrose(*) 2 GM/50 ML BAG IV ONE (15:00)
[2018-10-23] MEDS ORDERED: Vancomycin 1500 MG IV - x ONCE IVPB ONE ×2 (15:00)
[2018-10-23] MEDS ORDERED: Vancomycin(*) 1,000 MG VIAL IVPB SCH (15:00)
[2018-10-23] MEDS ORDERED: Dextrose 50% Syringe 50 ML* 25 GM/50 ML SYRINGE IV PUSH PRN (15:18)
[2018-10-23] MEDS ORDERED: NS 0.9% 250 ML* 250 ML ONE (15:22)
[2018-10-23] MEDS ORDERED: NS 0.9% 1000 ML** 1,000 ML IV SCH (15:30)
[2018-10-23 16:28] LABS: Urine Appearance Cloudy; Urine Bacteria 3+ (Absent); Urine Bilirubin Negative (Negative); Urine Blood 1+ (Negative); Urine Color Yellow; Urine Glucose 3+(>=500 mg/dL) (Negative); Urine Ketones Trace (Negative); Urine Nitrite Negative (Negative); Urine Protein Negative (Negative); Urine Red Blood Cell Trace(0-2/hpf) (Absent); Urine Specific Gravity 1.011 (1.010-1.030); Urine Urobilinogen Negative (Negative); Urine White Blood Cell 1+(6-10/hpf) (Absent)
--- NOTE | 2018-10-23 17:51 | PN ---
Progress Note - Progress Note Date of Service: 10/23/18 Note: RN on floor called to report that patient appeared SOB though not hypoxic. Plan to hold third liter of IV fluids for now. Monitor closely.
[2018-10-23] MEDS: Insulin LISPRO* 1 UNITS UNIT SUBCUT SCH (18:41)
--- NOTE | 2018-10-23 19:45 | HP ---
CC: Dr. Jensen; Dr. Hansen * [facility] MEDICINE HISTORY AND PHYSICAL: DATE OF ADMISSION: 10/23/18 PRIMARY CARE PHYSICIAN: Dr. Jensen. SALES ROUTE DRIVER: Dr. Hansen. ATTENDING PHYSICIAN: Dr. Kaushik Le * (dictation provided by Bridget Jackson NP) CHIEF COMPLAINT: Weakness. HISTORY OF PRESENT ILLNESS: Ms. Frias is an 88-year-old female with a past medical history of diabetes, atrial fibrillation, CKD stage 3, and obesity, who presents today to the hospital with concern for weakness. Ms. Frias is alone today in the emergency room, but appears to be answering questions appropriately. She is oriented x3. She states that her only symptom recently has been that she has been weaker than usual. She notes needing to walk up stairs in her home, but has been unable to do so. She was unable to get to go to the bathroom last night and then also had trouble this morning with walking and therefore, called the ambulance to be brought to the emergency room. The patient states she lives alone, but she does have support from Rosalinda Gonsalez who is her friend and works for her at times. The patient denies any fever. She denies any dysuria. She has had no frequency. Denies any nausea, vomiting , diarrhea or abdominal pain. She has had no chest pain, no shortness of breath , no cough. In the emergency room, Ms. Frias had labs which confirmed she had sepsis with a white blood cell count of 16.7, has a CRP of 359.39. Her blood glucose is dramatically elevated at 469. Her BUN and creatinine are at baseline. Her chest x- ray shows no acute process. Urinalysis has been sent but the results are pending. PAST MEDICAL HISTORY: 1. Hypertension. 2. Atrial fibrillation, on anticoagulation. 3. History of bilateral total hip arthroplasty. 4. History of duodenal ulcer. 5. Anxiety. 6. History of dyspnea on exertion, following with Dr. Hansen. 7. CKD stage 3. MEDICATIONS: 1. Trulicity 1.5/5 subcutaneously weekly. 2. Lisinopril 2.5 mg p.o. daily. 3. Lovastatin 40 mg p.o. daily. 4. Janumet XR 100/1000 one tab p.o. q.a.m. 5. Sitagliptin 100 mg p.o. daily. 6. Torsemide 10 mg p.o. daily. 7. Apixaban 2.5 mg p.o. daily. 8. Diltiazem 240 mg p.o. q.a.m. 9. Metoprolol succinate 25 mg p.o. b.i.d. ALLERGIES: SULFA DRUGS, ERYTHROMYCIN, PENICILLIN, CODEINE, beans and onions. FAMILY HISTORY: The patient's father related to pneumonia at age 70-year- old. Mother related to renal failure at age 71 or 72. SOCIAL HISTORY: No report of alcohol, tobacco or drug use. She lives alone with support from her friend, Rosalinda. REVIEW OF SYSTEMS: A 14-point review of systems was completed with Ms. Frias and all those not mentioned above were negative. PHYSICAL EXAMINATION GENERAL: Ms. Frias is lying in the bed. She has dry mucous membranes, does not appear to be in any acute distress. VITAL SIGNS: Temperature 98.6, pulse rate 105, respiratory rate 31, O2 saturation 92% on room air, blood pressure 133/94. LUNGS: Clear to auscultation bilaterally with no accessory muscle use and good aeration. HEART: S1 and S2. No murmur, rub or gallop, and regular. ABDOMEN: Soft, nontender with bowel sounds positive x4. EXTREMITIES: No cyanosis. Positive for 1+ pitting edema. NEUROLOGICAL: She is alert, she is oriented x3. She answers all the questions appropriately and follows all commands. She moves all extremities equally. There is no facial asymmetry or focal weakness. Extraocular movements are intact. SKIN: The patient has chronic venous stasis changes to bilateral lower extremities around the calves and up to the level of the knee. They are red and dry and scaly. The patient confirms that these are all chronic changes. DIAGNOSTIC STUDIES/LAB DATA: WBC is 16.7, hemoglobin 11.5, hematocrit 37, platelet count 420,000. INR 1.21. ABG shows pH of 7.42, PCO2 of 32, PO2 of 73. Sodium 131, potassium 4.1, chloride 96, serum bicarbonate 19, BUN 41, creatinine 1.40, glucose 469, lactic acid 1.2. Magnesium 1.7, troponin 0.03, CRP 359.39. Chest x-ray shows no acute process. EKG shows a sinus tachycardia with no evidence of ischemia. ASSESSMENT: Ms. Frias is an 88-year-old female with past medical history of diabetes, atrial fibrillation, and obesity as well as chronic kidney disease stage 3, who presents today to the hospital with concern for weakness, found to have sepsis currently of unknown source, though urinalysis is pending. Our plans are for inpatient admission as I expect her length of stay to be greater than 2 days for the followin. Sepsis: The patient has no localizing symptoms. Urinalysis is pending. Plan to await the UA and follow closely with those results. In the meantime, for now at least, she has been given vancomycin and cefepime in the ED x1 and I am planning to continue ceftriaxone pending further localization of source. Her lactic acid is normal. Blood cultures have been sent. She has received 2 L of IV fluids in the ED per the ED physician based on 30 mL/kg calculation. She should have 3 L total and I am now ordering a third liter. 2. Type 2 diabetes. Plan to hold home medications and try blood glucoses q.a.c. with lispro sliding scale. I am also ordering Lantus at 15 units to start tonight and that we can adjust that dose as needed going forward. 3. Chronic kidney disease stage 3 is at baseline. Continue to monitor closely. Plan to hold lisinopril during acute illness. 4. Hypertension: Plan to continue metoprolol and her diltiazem, but we will be holding torsemide and lisinopril during acute illness. 5. Code status: Full code. This was confirmed with the patient at bedside. 6. Disposition to medical floor. TIME SPENT: Approximately 60 minutes were spent on the admission of this patient, more than half of that time was spent with the patient at the bedside reviewing the events leading up to this hospitalization, performing the physical examination, and reviewing my plan of care. BRIDGET JACKSON NP [id number]/[facility] [place] #: [id number] ALY
[2018-10-23] MEDS ORDERED: Furosemide IV* 10 MG/ML 2 ML VIAL (20 MG) IV ONE (20:03)
[2018-10-23] MEDS: Metoprolol Succinate XL TAB* 25 MG PO SCH (20:53)
[2018-10-23] MEDS: Insulin GLARGINE(*) 1 UNITS UNIT SUBCUT SCH (20:54)
[2018-10-24] MEDS ORDERED: Diltiazem IV* 5 MG/ML 5 ML VIAL (for loading dose/IV Push) (25 MG) IV SLOW PU ONE (00:20)
[2018-10-24] MEDS ORDERED: Magnesium Sulfate 2 GM IV* 2 GM/50 ML BAG IVPB ONE (00:22)
--- NOTE | 2018-10-24 00:24 | PN ---
Progress Note - Progress Note Date of Service: 10/24/18 Note: Patient admitted for SIRS, Persistent rapid afib not responsive to metoprolol. Will give Diltiazem and transfer to tele. Also c/o of SOB, received Lasix earlier this evening. Will order CXR as well.
[2018-10-24] MEDS ORDERED: Diltiazem IV VIAL* 125 MG in NS 0.9% 100 ML* 100 ML IV SCH (02:00)
[2018-10-24 02:19] LABS: Hematocrit 35 % (35-47); Hemoglobin 11.2 g/dl (12.0-16.0); Mean Corpuscular HGB Conc 32 g/dl (31-36); Mean Corpuscular Hemoglobin 28 pg (27-31); Mean Corpuscular Volume 89 fL (80-97); Mean Platelet Volume 8.5 fL (7.4-10.4); Platelet Count 428 10^3/ul (150-450); Red Blood Count 3.94 10^6/ul (4.00-5.40); Red Cell Distribution Width 16 % (10.5-15); White Blood Count 18.2 10^3/ul (3.5-10.8)
[2018-10-24 02:38] LABS: Albumin 2.5 g/dL (3.2-5.2); Albumin/Globulin Ratio 0.8 (1-3); BUN/Creatinine Ratio 28.6 (8-20); Calcium 8.3 mg/dL (8.6-10.3); EGFR African American 43.1 (>60); EGFR Non-African American 35.7 (>60); Globulin 3.2 g/dL (2-4); Magnesium 3.5 mg/dL (1.9-2.7); Potassium 3.8 mmol/L (3.5-5.0); Total Bilirubin 0.4 mg/dL (0.2-1.0); Total Protein 5.7 g/dL (6.4-8.9)
[2018-10-24 02:39] LABS: Troponin I 0.03 ng/mL (<0.04)
[2018-10-24 02:42] LABS: Influenza A Molecular NEGATIVE (Negative); Influenza B Molecular NEGATIVE (Negative)
[2018-10-24] MEDS ORDERED: Heparin DRIP 25,000 UNITS(*) 25,000 UNITS/500 ML BAG IV SCH (02:45)
[2018-10-24 03:19] LABS: ABS Basophils 0 10^3/ul (0-0.2); ABS Eosinophils 0 10^3/ul (0-0.6); ABS Lymphocytes 0.7 10^3/ul (1.0-4.8); ABS Monocytes 1.7 10^3/ul (0-0.8); ABS Neutrophils 15.8 10^3/ul (1.5-7.7); ABS Nucleated RBC 0 10^3/ul; Eosinophil % 0.2 %; Lymphocyte % 3.7 %; Nucleated Red Blood Cells % 0
[2018-10-24] MEDS ORDERED: Heparin VIAL(*) 5000 UNITS/ML VIAL (FIVE THOUSAND) IV SCH (03:30)
[2018-10-24] MEDS: Insulin LISPRO* 1 UNITS UNIT SUBCUT SCH ×3 (08:50→18:41)
[2018-10-24] MEDS ORDERED: Diltiazem CD CAP* 240 MG PO SCH (09:00)
[2018-10-24] MEDS ORDERED: Apixaban* 2.5 MG TAB PO SCH (09:00)
[2018-10-24] MEDS ORDERED: Perflutren Lipid Microsphere* 3 ML VIAL ONE (09:04)
[2018-10-24] MEDS: Metoprolol Succinate XL TAB* 25 MG PO SCH ×2 (10:05→21:47)
--- NOTE | 2018-10-24 10:55 | ECHO ---
Patient: FELIBERTO MONET [facility] Rec#: [id number] : 1930 Date: 10/24/2018 Age: 88y Height: 165.1 cm / 65.0 in Weight: 108.86 kg / 239.9 lbs Sex: F BSA: 2.14 Room#: ICU 5 Admit Date#: 10/23/2018 Type: Inpatient Referring: Ceci Chandler Reading: Shant Obrien MD Diffusion Operator: Anna Plascencia,JOSÉCS,RDMS CC: Albert Jensen MD Transthoracic Echocardiogram Indication: CHF, Sepsis BP: 142/72 HR: 114 Rhythm: A-Fib Findings History: HTN, AFIB, CKD Technical Comments: The study quality is poor. Left Ventricle: The left ventricular chamber size is normal. Mild concentric left ventricular hypertrophy is observed. The left ventricle appears hyperdynamic. The estimated ejection fraction is 60-65%. Overall LV function appears normal but subtle wall motion abnormalties can not be excluded The assessment of diastolic function is non-diagnostic. Left Atrium: The left atrium is moderate to severely dilated. Right Ventricle: The right ventricle wall thickness is moderately increased. The right ventricular cavity size is normal. The right ventricular global systolic function is normal. Right Atrium: The right atrium is not well visualized. Aortic Valve: The aortic valve is trileaflet. The aortic valve leaflets are mildly thickened. There is no evidence of aortic regurgitation. There is no evidence of aortic stenosis. Mitral Valve: The mitral valve leaflets appear normal. There is mitral annular calcification. There is a trace of mitral regurgitation. There is no evidence of mitral stenosis. Tricuspid Valve: The tricuspid valve leaflets are normal. There is trace tricuspid regurgitation. There is evidence of borderline pulmonary hypertension. Pulmonic Valve: The pulmonic valve appears normal. There is a trace pulmonic regurgitation. Pericardium: There is no significant pericardial effusion. Aorta: The aortic root appears normal. There is no dilatation of the aortic arch. Pulmonary Artery: The main pulmonary artery is not well visualized. Venous: The inferior vena cava is dilated. There is an approximate 50% respiratory change in the inferior vena cava dimension. Contrast: Definity was used to optimize study. A total of 4 ml was used Conclusions The study quality is poor. Mild concentric left ventricular hypertrophy is observed. The estimated ejection fraction is 60-65%. Overall LV function appears normal but subtle wall motion abnormalties can not be excluded The right ventricular global systolic function is normal. There is no evidence of aortic stenosis. There is a trace of mitral regurgitation. There is trace tricuspid regurgitation. There is no significant pericardial effusion. Compared to study of 04/22/14, the LV function has improved Measurements Name Value Normal Range RVIDd (AP) 2D 2.7 cm (0.9 - 2.6) IVSd (2D) 1.4 cm (0.6 - 1) LVPWd (2D) 1.2 cm (0.6 - 1) LVIDd (2D) 5 cm (3.6 - 5.4) LVIDs (2D) 3.2 cm - LV FS (2D) 35 % (25 - 45) Aortic Annulus 2 cm (1.4 - 2.6) Ao root diameter (2D) 3 cm (2.1 - 3.5) Ascending Ao 3 cm (2.1 - 3.4) Aortic arch 2.3 cm (1.8 - 3.4) LA dimension (AP) 2D 4.4 cm (2.3 - 3.8) LAd ISD 4CH 6.8 cm (2.9 - 5.3) LA ISD 4CH W 5.3 cm (2.5 - 4.5) Name Value Normal Range MV E-wave Vmax 0.9 m/sec - MV deceleration time 182 msec - LV septal e' Vmax 0.08 m/sec - LV E:e' septal ratio 11 ratio - Name Value Normal Range AV Vmax 1.1 m/sec - AV peak gradient 5 mmHg - LVOT Vmax 0.9 m/sec - LVOT peak gradient 3.2 mmHg - JACKELINE Vmax 0.6 m/sec - Name Value Normal Range TR Vmax 2.8 m/sec - TR peak gradient 30 mmHg - RAP 3 mmHg - RVSP 33 mmHg - IVC diameter 2.7 cm - Name Value Normal Range PV Vmax 0.6 m/sec - PV peak gradient 1.4 mmHg -
[2018-10-24] MEDS: cefTRIAXone(*) 1 GM in NS 0.9% 50 ML* 50 ML IVPB SCH (11:35)
[2018-10-24] MEDS: Acetaminophen TAB* 325 MG PO PRN (11:42)
--- NOTE | 2018-10-24 14:31 | PN ---
Subjective Date of Service: 10/24/18 Interval History: Transferred to ICU for dilt gtt for Afib RVR 120s and hypoxic respiratory failure. Started on heparin gtt for concern for PE. Of note patient is on eliquis 2.5mg BID for her Afib. v/q scan no e/o PE/low risk though limited study. Duplex dopplers negative b/l. Healthcare power of document review attorney friend Rosalinda at bedside this AM and relates patient has been eating poorly for 2 weeks since her trulicity dose was increased. A1C ~[address] Hansen office. Not eating much at all for 2 days prior to admission. Fever curve improving. UCx with Ecoli >100K. BG have been 300s then 400s. Dilt currently at 10, HR in 70s Afib. WBC up to 18.2 Objective Active Medications: Acetaminophen (Tylenol Tab*) 650 mg PO Q6H PRN PRN Reason: pain/fever Last Admin: 10/24/18 11:42 Dose: 650 mg Apixaban (Eliquis*) 2.5 mg PO BID [facility] Dextrose (D50w Syringe 50 Ml*) 12.5 gm IV PUSH .FOR FS < 60 - SS PRN PRN Reason: FS < 60 Ceftriaxone Sodium 1 gm/ (Sodium Chloride) 50 mls @ 200 mls/hr IVPB Q24H [facility] Last Admin: 10/24/18 11:35 Dose: 200 mls/hr Diltiazem HCl 125 mg/ Sodium (Chloride) 125 mls @ 5 mls/hr IV Q24H [facility]; Protocol Last Admin: 10/24/18 01:53 Dose: 5 mls/hr Insulin Glargine (Lantus(*)) 15 units SUBCUT BEDTIME [facility] Last Admin: 10/23/18 20:54 Dose: 15 units Insulin Human Lispro (Humalog*) 0 units SUBCUT AC [facility]; Protocol Last Admin: 10/24/18 12:08 Dose: 15 unit Metoprolol Succinate (Toprol Xl Tab*) 25 mg PO BID [facility] Last Admin: 10/24/18 10:05 Dose: 25 mg Vital Signs - 8 hr 10/24/18 10/24/18 10/24/18 06:16 06:31 06:46 Temperature 100.0 F 100.0 F 100.0 F Pulse Rate 90 100 97 Respiratory 33 30 35 Rate Blood Pressure 133/70 130/70 143/72 (mmHg) O2 Sat by Pulse 96 96 96 Oximetry 10/24/18 10/24/18 10/24/18 07:00 07:01 07:16 Temperature 100.2 F 100.2 F Pulse Rate 96 94 Respiratory 31 37 31 Rate Blood Pressure 134/79 119/74 (mmHg) O2 Sat by Pulse 96 97 Oximetry 10/24/18 10/24/18 10/24/18 07:31 07:46 08:00 Temperature 100.2 F 100.2 F 100.2 F Pulse Rate 105 93 100 Respiratory 35 34 36 Rate Blood Pressure 145/69 127/77 122/86 (mmHg) O2 Sat by Pulse 96 95 96 Oximetry 10/24/18 10/24/18 10/24/18 08:15 08:31 08:45 Temperature 100.2 F 100.2 F 100.2 F Pulse Rate 99 102 92 Respiratory 36 31 34 Rate Blood Pressure 137/75 127/76 139/101 (mmHg) O2 Sat by Pulse 97 96 96 Oximetry 10/24/18 10/24/18 10/24/18 09:00 09:01 09:16 Temperature 100.2 F 100.2 F Pulse Rate 92 100 Respiratory 27 29 35 Rate Blood Pressure 128/74 129/82 (mmHg) O2 Sat by Pulse 95 95 Oximetry 10/24/18 10/24/18 10/24/18 09:30 09:45 10:00 Temperature 100.2 F 100.2 F 100.2 F Pulse Rate 99 94 93 Respiratory 31 34 35 Rate Blood Pressure 137/81 130/75 139/67 (mmHg) O2 Sat by Pulse 96 96 99 Oximetry 10/24/18 10/24/18 10/24/18 10:16 10:30 11:28 Temperature 100.2 F Pulse Rate 99 97 84 Respiratory 27 33 30 Rate Blood Pressure 130/97 141/106 130/77 (mmHg) O2 Sat by Pulse 99 99 98 Oximetry 10/24/18 10/24/18 10/24/18 11:30 11:46 12:00 Temperature 100.0 F 100.0 F 100.0 F Pulse Rate 91 96 94 Respiratory 30 36 37 Rate Blood Pressure 125/73 134/81 (mmHg) O2 Sat by Pulse 98 98 98 Oximetry 10/24/18 10/24/18 10/24/18 12:01 12:15 12:31 Temperature 100.0 F 99.9 F 99.9 F Pulse Rate 93 93 84 Respiratory 30 33 30 Rate Blood Pressure 119/86 126/71 109/61 (mmHg) O2 Sat by Pulse 98 98 98 Oximetry 10/24/18 13:01 Temperature 99.7 F Pulse Rate 79 Respiratory 27 Rate Blood Pressure 93/64 (mmHg) O2 Sat by Pulse 98 Oximetry Oxygen Devices in Use Now: High Flow Heated Nasal Cannula Appearance: NAD but chronically ill appearing. Eyes: No Scleral Icterus Ears/Nose/Mouth/Throat: NL Teeth, Lips, Gums, Mucous Membranes Moist Neck: NL Appearance and Movements; NL JVP Respiratory: - - anteriorly clear but with expiratory wheezing. Cardiovascular: - - irregularly irregular. Extremities: No Edema Skin: No Rash or Ulcers, - - some b/l mild erythema of Neurological: Alert and Oriented x 3 Nutrition: Taking PO's Result Diagrams: 10/24/18 02:00 10/24/18 02:00 Additional Lab and Data: Laboratory Results - last 24 hr 10/23/18 10/23/18 10/23/18 13:43 13:43 13:43 WBC RBC Hgb Hct MCV MCH MCHC RDW Plt Count MPV Neut % (Auto) 87.5 Lymph % (Auto) 4.1 [place] % (Auto) 7.2 Eos % (Auto) 0 Baso % (Auto) 1.2 Absolute Neuts (auto) 14.6 H Absolute Lymphs (auto) 0.7 L Absolute Monos (auto) 1.2 H Absolute Eos (auto) 0 Absolute Basos (auto) 0.2 Absolute Nucleated RBC 0 Nucleated RBC % 0 INR (Anticoag Therapy) 1.21 H APTT D-Dimer, Quantitative Cancelled Patient Temperature ABG pH ABG pH (Temp Correct) ABG pCO2 ABG pCO2 (Temp Corrct ABG pO2 ABG pO2 (Temp Correct ABG HCO3 ABG O2 Saturation ABG Base Excess Respiration Rate O2 Delivery Device Ventilator Type Vent Mode FiO2 Inspiratory Time PEEP Pressure Support Pressure Control EPAP IPAP BiPAP Sodium Potassium Chloride Carbon Dioxide Anion Gap BUN Creatinine Est GFR ( Amer) Est GFR (Non-Af Amer) BUN/Creatinine Ratio Glucose POC Glucose (mg/dL) Glucose Meter Confirm 472 H Hemoglobin A1c Calcium Magnesium Total Bilirubin AST ALT Alkaline Phosphatase Troponin I Total Protein Albumin Globulin Albumin/Globulin Ratio TSH 4.11 Urine Color Urine Appearance Urine pH Ur Specific [place] Urine Protein Urine Ketones Urine Blood Urine Nitrate Urine Bilirubin Urine Urobilinogen Ur Leukocyte Esterase Urine WBC (Auto) Urine RBC (Auto) Urine Bacteria Urine Glucose Influenza A (Rapid) Influenza B (Rapid) 10/23/18 10/23/18 10/23/18 13:45 18:11 20:23 WBC RBC Hgb Hct MCV MCH MCHC RDW Plt Count MPV Neut % (Auto) Lymph % (Auto) [place] % (Auto) Eos % (Auto) Baso % (Auto) Absolute Neuts (auto) Absolute Lymphs (auto) Absolute Monos (auto) Absolute Eos (auto) Absolute Basos (auto) Absolute Nucleated RBC Nucleated RBC % INR (Anticoag Therapy) APTT D-Dimer, Quantitative Patient Temperature ABG pH ABG pH (Temp Correct) ABG pCO2 ABG pCO2 (Temp Corrct ABG pO2 ABG pO2 (Temp Correct ABG HCO3 ABG O2 Saturation ABG Base Excess Respiration Rate O2 Delivery Device Ventilator Type Vent Mode FiO2 Inspiratory Time PEEP Pressure Support Pressure Control EPAP IPAP BiPAP Sodium Potassium Chloride Carbon Dioxide Anion Gap BUN Creatinine Est GFR ( Amer) Est GFR (Non-Af Amer) BUN/Creatinine Ratio Glucose POC Glucose (mg/dL) 387 H > 444 H* Glucose Meter Confirm Hemoglobin A1c Calcium Magnesium Total Bilirubin AST ALT Alkaline Phosphatase Troponin I Total Protein Albumin Globulin Albumin/Globulin Ratio TSH Urine Color Yellow Urine Appearance Cloudy Urine pH 5.0 Ur Specific [place] 1.011 Urine Protein Negative Urine Ketones Trace A Urine Blood 1+ A Urine Nitrate Negative Urine Bilirubin Negative Urine Urobilinogen Negative Ur Leukocyte Esterase Trace A Urine WBC (Auto) 1+(6-10/hpf) A Urine RBC (Auto) Trace(0-2/hpf) Urine Bacteria 3+ A Urine Glucose 3+(>=500 mg/dl) A Influenza A (Rapid) Influenza B (Rapid) 10/23/18 10/24/18 10/24/18 21:28 00:51 02:00 WBC 18.2 H RBC 3.94 L Hgb 11.2 L Hct 35 MCV 89 MCH 28 MCHC 32 RDW 16 H Plt Count 428 MPV 8.5 Neut % (Auto) 86.8 Lymph % (Auto) 3.7 [place] % (Auto) 9.2 Eos % (Auto) 0.2 Baso % (Auto) 0.1 Absolute Neuts (auto) 15.8 H Absolute Lymphs (auto) 0.7 L Absolute Monos (auto) 1.7 H Absolute Eos (auto) 0 Absolute Basos (auto) 0 Absolute Nucleated RBC 0 Nucleated RBC % 0 INR (Anticoag Therapy) APTT D-Dimer, Quantitative Patient Temperature Not Reportable ABG pH 7.43 ABG pH (Temp Correct) Not Reportable ABG pCO2 35 ABG pCO2 (Temp Corrct Not Reportable ABG pO2 67 L ABG pO2 (Temp Correct Not Reportable ABG HCO3 24.3 ABG O2 Saturation 94.8 ABG Base Excess -0.6 Respiration Rate Not Reportable O2 Delivery Device N/c Ventilator Type Not Reportable Vent Mode Not Reportable FiO2 Not Reportable Inspiratory Time Not Reportable PEEP Not Reportable Pressure Support Not Reportable Pressure Control Not Reportable EPAP Not Reportable IPAP Not Reportable BiPAP Not Reportable Sodium Potassium Chloride Carbon Dioxide Anion Gap BUN Creatinine Est GFR ( Amer) Est GFR (Non-Af Amer) BUN/Creatinine Ratio Glucose POC Glucose (mg/dL) Glucose Meter Confirm 421 H Hemoglobin A1c Calcium Magnesium Total Bilirubin AST ALT Alkaline Phosphatase Troponin I Total Protein Albumin Globulin Albumin/Globulin Ratio TSH Urine Color Urine Appearance Urine pH Ur Specific [place] Urine Protein Urine Ketones Urine Blood Urine Nitrate Urine Bilirubin Urine Urobilinogen Ur Leukocyte Esterase Urine WBC (Auto) Urine RBC (Auto) Urine Bacteria Urine Glucose Influenza A (Rapid) Influenza B (Rapid) 10/24/18 10/24/18 10/24/18 02:00 02:00 02:30 WBC RBC Hgb Hct MCV MCH MCHC RDW Plt Count MPV Neut % (Auto) Lymph % (Auto) [place] % (Auto) Eos % (Auto) Baso % (Auto) Absolute Neuts (auto) Absolute Lymphs (auto) Absolute Monos (auto) Absolute Eos (auto) Absolute Basos (auto) Absolute Nucleated RBC Nucleated RBC % INR (Anticoag Therapy) APTT D-Dimer, Quantitative Patient Temperature ABG pH ABG pH (Temp Correct) ABG pCO2 ABG pCO2 (Temp Corrct ABG pO2 ABG pO2 (Temp Correct ABG HCO3 ABG O2 Saturation ABG Base Excess Respiration Rate O2 Delivery Device Ventilator Type Vent Mode FiO2 Inspiratory Time PEEP Pressure Support Pressure Control EPAP IPAP BiPAP Sodium 132 L Potassium 3.8 Chloride 100 L Carbon Dioxide 23 Anion Gap 9 BUN 40 H Creatinine 1.40 H Est GFR ( Amer) 43.1 Est GFR (Non-Af Amer) 35.7 BUN/Creatinine Ratio 28.6 H Glucose 378 H POC Glucose (mg/dL) Glucose Meter Confirm Hemoglobin A1c 11.4 H Calcium 8.3 L Magnesium 3.5 H Total Bilirubin 0.40 AST 11 L ALT 12 Alkaline Phosphatase 114 H Troponin I 0.03 Total Protein 5.7 L Albumin 2.5 L Globulin 3.2 Albumin/Globulin Ratio 0.8 L TSH Urine Color Urine Appearance Urine pH Ur Specific [place] Urine Protein Urine Ketones Urine Blood Urine Nitrate Urine Bilirubin Urine Urobilinogen Ur Leukocyte Esterase Urine WBC (Auto) Urine RBC (Auto) Urine Bacteria Urine Glucose Influenza A (Rapid) Negative Influenza B (Rapid) Negative 10/24/18 10/24/18 10/24/18 03:37 07:51 07:55 WBC RBC Hgb Hct MCV MCH MCHC RDW Plt Count MPV Neut % (Auto) Lymph % (Auto) [place] % (Auto) Eos % (Auto) Baso % (Auto) Absolute Neuts (auto) Absolute Lymphs (auto) Absolute Monos (auto) Absolute Eos (auto) Absolute Basos (auto) Absolute Nucleated RBC Nucleated RBC % INR (Anticoag Therapy) APTT 30.0 D-Dimer, Quantitative > 1050 H Patient Temperature ABG pH ABG pH (Temp Correct) ABG pCO2 ABG pCO2 (Temp Corrct ABG pO2 ABG pO2 (Temp Correct ABG HCO3 ABG O2 Saturation ABG Base Excess Respiration Rate O2 Delivery Device Ventilator Type Vent Mode FiO2 Inspiratory Time PEEP Pressure Support Pressure Control EPAP IPAP BiPAP Sodium Potassium Chloride Carbon Dioxide Anion Gap BUN Creatinine Est GFR ( Amer) Est GFR (Non-Af Amer) BUN/Creatinine Ratio Glucose 400 H POC Glucose (mg/dL) 435 H* Glucose Meter Confirm Hemoglobin A1c Calcium Magnesium Total Bilirubin AST ALT Alkaline Phosphatase Troponin I Total Protein Albumin Globulin Albumin/Globulin Ratio TSH Urine Color Urine Appearance Urine pH Ur Specific [place] Urine Protein Urine Ketones Urine Blood Urine Nitrate Urine Bilirubin Urine Urobilinogen Ur Leukocyte Esterase Urine WBC (Auto) Urine RBC (Auto) Urine Bacteria Urine Glucose Influenza A (Rapid) Influenza B (Rapid) 10/24/18 10/24/18 10:20 11:59 WBC RBC Hgb Hct MCV MCH MCHC RDW Plt Count MPV Neut % (Auto) Lymph % (Auto) [place] % (Auto) Eos % (Auto) Baso % (Auto) Absolute Neuts (auto) Absolute Lymphs (auto) Absolute Monos (auto) Absolute Eos (auto) Absolute Basos (auto) Absolute Nucleated RBC Nucleated RBC % INR (Anticoag Therapy) APTT 82.3 H D-Dimer, Quantitative Patient Temperature ABG pH ABG pH (Temp Correct) ABG pCO2 ABG pCO2 (Temp Corrct ABG pO2 ABG pO2 (Temp Correct ABG HCO3 ABG O2 Saturation ABG Base Excess Respiration Rate O2 Delivery Device Ventilator Type Vent Mode FiO2 Inspiratory Time PEEP Pressure Support Pressure Control EPAP IPAP BiPAP Sodium Potassium Chloride Carbon Dioxide Anion Gap BUN Creatinine Est GFR ( Amer) Est GFR (Non-Af Amer) BUN/Creatinine Ratio Glucose POC Glucose (mg/dL) 384 H Glucose Meter Confirm Hemoglobin A1c Calcium Magnesium Total Bilirubin AST ALT Alkaline Phosphatase Troponin I Total Protein Albumin Globulin Albumin/Globulin Ratio TSH Urine Color Urine Appearance Urine pH Ur Specific [place] Urine Protein Urine Ketones Urine Blood Urine Nitrate Urine Bilirubin Urine Urobilinogen Ur Leukocyte Esterase Urine WBC (Auto) Urine RBC (Auto) Urine Bacteria Urine Glucose Influenza A (Rapid) Influenza B (Rapid) Microbiology and Other Data: Microbiology 10/23/18 13:45 Urine Urine Culture - Preliminary Escherichia Coli 10/24/18 02:00 Nasal Nasal Screen MRSA (PCR) - Final Mrsa Not Detected 10/24/18 02:00 Nasal Influenza Types A,B Antigen - Final Specimen received for Influenza A/B Molecular testing Assess/Plan/Problems-Billing Assessment: 88 yo female H NIDDM (recently much worse control), Afib(on eliquis), HTN, anxiety, morbid obesity, CKD stage 3 p/w with increasing fatigue, fall, poor po intake. Fevers, leukocytosis, tachypnea, tachycardia, anion gap. Sepsis thought secondary to UTI. Acute hypoxic respiratory failure. - Patient Problems (1) Sepsis Current Visit: Yes Status: Acute Comment: Thought secondary to Ecoli UTI. Leukocytosis, tachypnea, tachycardia, febrile Tmax 100.9, hypotensive. f/u Bcx s/p vanc, cefepime and flagyl in ED. Continue Cftx. Day 2 antibiotics. (2) Acute respiratory failure with hypoxia Current Visit: Yes Status: Acute Code(s): J96.01 - ACUTE RESPIRATORY FAILURE WITH HYPOXIA SNOMED Code(s): 20074088 Comment: Likely 2/2 acute diastolic CHF exaccerbation in setting of IVF and Afib with RVR. DDimer>1050. No e/o of PE on v/q scan. no DVTs and is on Eliquis (though renal/age reduced doseage). Weaning vapotherm. two CXR with no acute process. Does have some expiratory wheezing on exam(cardiac? never smoker w/o history of asthma or COPD. Likely component of obesity hypoventilation syndrome. ECHO 2/4 with EF 60-65%, RVSP 33mm. (3) Acute diastolic CHF (congestive heart failure) Current Visit: Yes Status: Acute Code(s): I50.31 - ACUTE DIASTOLIC ( CONGESTIVE) HEART FAILURE SNOMED Code(s): 594716733 Comment: strict i/o, daily weights BNP 276. gentle diuresis as able but not today. (4) E-coli UTI Current Visit: Yes Status: Acute Code(s): N39.0 - URINARY TRACT INFECTION, SITE NOT SPECIFIED; B96.20 - UNSP ESCHERICHIA COLI THE CAUSE OF DISEASES CLASSD [facility] SNOMED Code(s): 644965380 Comment: CFTX as above. f/u Ucx (5) Rapid atrial fibrillation Current Visit: No Status: Acute Priority: High Onset Date: 04/20/14 Code (s): I48.91 - UNSPECIFIED ATRIAL FIBRILLATION SNOMED Code(s): 630387128 Comment: Will attempt to wean off dilt gtt. Mg corrected, keep >2. K>4, give 20mEq today. tele will restart her home dilt po, but with 60q6 instead of 240 ER. (6) Morbid obesity Current Visit: Yes Status: Acute Code(s): E66.01 - MORBID (SEVERE) OBESITY DUE TO EXCESS CALORIES SNOMED Code(s): 657929347 Status and Disposition: medicine inpatient. currently ICU, transfer to floor if stable off dilt gtt and oxygen requirements decrease.
[2018-10-24] MEDS: Apixaban* 2.5 MG TAB PO SCH ×2 (15:23→21:47)
[2018-10-24] MEDS: Diltiazem TAB* 60 MG PO SCH ×2 (15:24→18:41)
[2018-10-24] MEDS: KCL 20 MEQ/100 ML IVPREMIX* 20 MEQ/100 ML BAG IV ONE ×2 (15:24→15:33)
[2018-10-24] MEDS: Insulin GLARGINE(*) 1 UNITS UNIT SUBCUT SCH (21:48)
[2018-10-25] MEDS: Diltiazem TAB* 60 MG PO SCH ×4 (00:27→18:15)
[2018-10-25 07:22] LABS: ABS Basophils 0.1 10^3/ul (0-0.2); ABS Eosinophils 0 10^3/ul (0-0.6); ABS Lymphocytes 0.9 10^3/ul (1.0-4.8); ABS Monocytes 1.1 10^3/ul (0-0.8); ABS Neutrophils 14.9 10^3/ul (1.5-7.7); ABS Nucleated RBC 0 10^3/ul; Eosinophil % 0.1 %; Hematocrit 33 % (35-47); Hemoglobin 10.4 g/dl (12.0-16.0); Lymphocyte % 5.2 %; Mean Corpuscular HGB Conc 32 g/dl (31-36); Mean Corpuscular Hemoglobin 29 pg (27-31); Mean Corpuscular Volume 90 fL (80-97); Mean Platelet Volume 8.9 fL (7.4-10.4); Nucleated Red Blood Cells % 0; Platelet Count 395 10^3/ul (150-450); Red Blood Count 3.62 10^6/ul (4.00-5.40); Red Cell Distribution Width 16 % (10.5-15)
[2018-10-25 07:39] LABS: BUN/Creatinine Ratio 30.7 (8-20); Calcium 8.3 mg/dL (8.6-10.3); EGFR African American 38.9 (>60); EGFR Non-African American 32.2 (>60); Potassium 4.3 mmol/L (3.5-5.0)
[2018-10-25] MEDS: Insulin LISPRO* 1 UNITS UNIT SUBCUT SCH ×3 (09:38→18:15)
[2018-10-25] MEDS: Apixaban* 2.5 MG TAB PO SCH ×2 (09:39→22:38)
[2018-10-25] MEDS: Metoprolol Succinate XL TAB* 25 MG PO SCH ×2 (09:39→22:38)
[2018-10-25] MEDS: cefTRIAXone(*) 1 GM in NS 0.9% 50 ML* 50 ML IVPB SCH (10:11)
--- NOTE | 2018-10-25 11:56 | PN ---
Subjective Date of Service: 10/25/18 Interval History: BG elevated >400. afebrile. Grunting, exp wheezing. WBC slightly down 17.0 from 18.2 Afib 90s, blood pressures preserved UTI Cx: ecoli sensitive to cftx. Objective Active Medications: Acetaminophen (Tylenol Tab*) 650 mg PO Q6H PRN PRN Reason: pain/fever Last Admin: 10/24/18 11:42 Dose: 650 mg Apixaban (Eliquis*) 2.5 mg PO BID [facility] Last Admin: 10/25/18 09:39 Dose: 2.5 mg Dextrose (D50w Syringe 50 Ml*) 12.5 gm IV PUSH .FOR FS < 60 - SS PRN PRN Reason: FS < 60 Diltiazem HCl (Cardizem Tab*) 60 mg PO Q6HR [facility] Last Admin: 10/25/18 06:24 Dose: 60 mg Ceftriaxone Sodium 1 gm/ (Sodium Chloride) 50 mls @ 200 mls/hr IVPB Q24H [facility] Last Admin: 10/25/18 10:11 Dose: 200 mls/hr Potassium Chloride (Potassium Chloride 20 Meq/100 Ml Ivpremix*) 20 meq in 100 mls @ 50 mls/hr IV ONCE ONE Last Admin: 10/24/18 15:33 Dose: 50 mls/hr Insulin Glargine (Lantus(*)) 15 units SUBCUT Q12H [facility] Insulin Human Lispro (Humalog*) 0 units SUBCUT AC [facility]; Protocol Last Admin: 10/25/18 09:38 Dose: 12 unit Ipratropium [place] (Atrovent 0.5 Mg Neb.Kim*) 0.5 mg INH Q6H [facility] Levalbuterol HCl (Xopenex 0.63mg/3ml Neb*) 0.63 mg INH [id number] AWAKE [facility] Metoprolol Succinate (Toprol Xl Tab*) 25 mg PO BID [facility] Last Admin: 10/25/18 09:39 Dose: 25 mg Vital Signs - 8 hr 10/25/18 10/25/18 04:56 11:30 Temperature 98.2 F 97.9 F Pulse Rate 109 85 Respiratory 28 28 Rate Blood Pressure 142/96 128/54 (mmHg) O2 Sat by Pulse 95 98 Oximetry Oxygen Devices in Use Now: Nasal Cannula Appearance: NAD but chronically ill appearing. Eyes: No Scleral Icterus Ears/Nose/Mouth/Throat: NL Teeth, Lips, Gums Neck: NL Appearance and Movements; NL JVP Respiratory: - - diffuse wheezing, no rhonchi or rales. Cardiovascular: - - irregularly irregular no tachycardia. Extremities: No Edema, - - mild erythema b/l, no warmth Neurological: Alert and Oriented x 3 Nutrition: Taking PO's Result Diagrams: 10/25/18 07:00 10/25/18 07:00 Additional Lab and Data: Laboratory Results - last 24 hr 10/25/18 10/25/18 10/25/18 07:00 07:00 08:09 WBC 17.0 H RBC 3.62 L Hgb 10.4 L Hct 33 L MCV 90 MCH 29 MCHC 32 RDW 16 H Plt Count 395 MPV 8.9 Neut % (Auto) 87.9 Lymph % (Auto) 5.2 [place] % (Auto) 6.4 Eos % (Auto) 0.1 Baso % (Auto) 0.4 Absolute Neuts (auto) 14.9 H Absolute Lymphs (auto) 0.9 L Absolute Monos (auto) 1.1 H Absolute Eos (auto) 0 Absolute Basos (auto) 0.1 Absolute Nucleated RBC 0 Nucleated RBC % 0 Sodium 133 L Potassium 4.3 Chloride 100 L Carbon Dioxide 23 Anion Gap 10 BUN 47 H Creatinine 1.53 H Est GFR ( Amer) 38.9 Est GFR (Non-Af Amer) 32.2 BUN/Creatinine Ratio 30.7 H Glucose 324 H POC Glucose (mg/dL) 345 H Glucose Meter Confirm Calcium 8.3 L 10/25/18 10/25/18 10/25/18 11:19 11:35 16:36 WBC RBC Hgb Hct MCV MCH MCHC RDW Plt Count MPV Neut % (Auto) Lymph % (Auto) [place] % (Auto) Eos % (Auto) Baso % (Auto) Absolute Neuts (auto) Absolute Lymphs (auto) Absolute Monos (auto) Absolute Eos (auto) Absolute Basos (auto) Absolute Nucleated RBC Nucleated RBC % Sodium Potassium Chloride Carbon Dioxide Anion Gap BUN Creatinine Est GFR ( Amer) Est GFR (Non-Af Amer) BUN/Creatinine Ratio Glucose POC Glucose (mg/dL) > 444 H* 408 H* Glucose Meter Confirm 435 H Calcium 10/25/18 10/25/18 16:53 17:57 WBC RBC Hgb Hct MCV MCH MCHC RDW Plt Count MPV Neut % (Auto) Lymph % (Auto) [place] % (Auto) Eos % (Auto) Baso % (Auto) Absolute Neuts (auto) Absolute Lymphs (auto) Absolute Monos (auto) Absolute Eos (auto) Absolute Basos (auto) Absolute Nucleated RBC Nucleated RBC % Sodium Potassium Chloride Carbon Dioxide Anion Gap BUN Creatinine Est GFR ( Amer) Est GFR (Non-Af Amer) BUN/Creatinine Ratio Glucose POC Glucose (mg/dL) 377 H Glucose Meter Confirm 370 H Calcium Microbiology and Other Data: Microbiology 10/23/18 13:45 Urine Urine Culture - Preliminary Escherichia Coli 10/24/18 02:00 Nasal Nasal Screen MRSA (PCR) - Final Mrsa Not Detected 10/24/18 02:00 Nasal Influenza Types A,B Antigen - Final Specimen received for Influenza A/B Molecular testing Assess/Plan/Problems-Billing Assessment: 88 yo female PMH NIDDM (recently much worse control), Afib(on eliquis), HTN, anxiety, morbid obesity, CKD stage 3 p/w with increasing fatigue, fall, poor po intake. Fevers, leukocytosis, tachypnea, tachycardia, anion gap. Sepsis thought secondary to Ecoli UTI. Acute hypoxic respiratory failure after IVF bolus and course complicated by Afib with RVR. Cftx. Had gotten doxy 2 weeks before admission. never smoker. - Patient Problems (1) Sepsis Current Visit: Yes Status: Acute Comment: Thought secondary to Ecoli UTI sensitive to cftx and FQs Leukocytosis, tachypnea, tachycardia, febrile Tmax 100.9, hypotensive. f/u Bcx NGTD s/p vanc, cefepime and flagyl in ED. Continue Cftx. Day 3 antibiotics. (2) Acute respiratory failure with hypoxia Current Visit: Yes Status: Acute Code(s): J96.01 - ACUTE RESPIRATORY FAILURE WITH HYPOXIA SNOMED Code(s): 82436533 Comment: Likely 2/2 acute diastolic CHF exaccerbation in setting of IVF and Afib with RVR. DDimer>1050. No e/o of PE on v/q scan. no DVTs and is on Eliquis (though renal/age reduced doseage). On 4L sating high 90s. two CXR with no acute process. expiratory wheezing on exam(cardiac? never smoker w/o history of asthma or COPD. Likely component of obesity hypoventilation syndrome. ECHO 2/4 with EF 60- 65%, RVSP 33mm. starting lasix 40mg IV and ipratropium + xopenex nebs today. (3) Acute diastolic CHF (congestive heart failure) Current Visit: Yes Status: Acute Code(s): I50.31 - ACUTE DIASTOLIC ( CONGESTIVE) HEART FAILURE SNOMED Code(s): 516696849 Comment: strict i/o, daily weights BNP 276. lasix 40mg IV daily started. (4) E-coli UTI Current Visit: Yes Status: Acute Code(s): N39.0 - URINARY TRACT INFECTION, SITE NOT SPECIFIED; B96.20 - UNSP ESCHERICHIA COLI THE CAUSE OF DISEASES CLASSD [facility] SNOMED Code(s): 687626387 Comment: CFTX as above. (5) Rapid atrial fibrillation Current Visit: No Status: Acute Priority: High Onset Date: 04/20/14 Code (s): I48.91 - UNSPECIFIED ATRIAL FIBRILLATION SNOMED Code(s): 287727516 Comment: keep >2. K>4 continue eliquis 2.5mg BID. dilt 60q6 . 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 double lantus to 15mg BID, poc qachs. SSI A1C 11.4 home was andreas schmid trulicity Status and Disposition: medicine inpatient. PT rec of [facility] currently.
[2018-10-25] MEDS ORDERED: predniSONE TAB* 20 MG PO SCH (12:00)
[2018-10-25] MEDS ORDERED: Ipratropium 0.5MG/2.5ML NEB* 0.5 MG/2.5 ML NEB.SOLN INH SCH (12:00)
[2018-10-25] MEDS ORDERED: Insulin LISPRO* 1 UNITS UNIT SUBCUT ONE (12:38)
[2018-10-25] MEDS ORDERED: Dextrose 50% Syringe 50 ML* 25 GM/50 ML SYRINGE IV PUSH PRN (12:38)
[2018-10-25] MEDS: Insulin GLARGINE(*) 1 UNITS UNIT SUBCUT SCH (12:57)
[2018-10-25] MEDS: Ipratropium 0.5MG/2.5ML NEB* 0.5 MG/2.5 ML NEB.SOLN INH SCH ×2 (13:09→19:58)
[2018-10-25] MEDS: Levalbuterol 0.63MG/3ML NEB* UNIT OF USE INH SCH ×2 (13:09→19:58)
[2018-10-25] MEDS ORDERED: Furosemide IV* 10 MG/ML VIAL (40 MG) IV ONE (13:44)
[2018-10-26] MEDS: Diltiazem TAB* 60 MG PO SCH ×2 (00:22→05:28)
[2018-10-26] MEDS: Insulin GLARGINE(*) 1 UNITS UNIT SUBCUT SCH ×3 (00:23→21:33)
[2018-10-26] MEDS: Ipratropium 0.5MG/2.5ML NEB* 0.5 MG/2.5 ML NEB.SOLN INH SCH ×4 (02:02→19:23)
[2018-10-26] MEDS: Levalbuterol 0.63MG/3ML NEB* UNIT OF USE INH SCH ×4 (02:02→20:30)
[2018-10-26 05:23] LABS: ABS Basophils 0.1 10^3/ul (0-0.2); ABS Eosinophils 0.1 10^3/ul (0-0.6); ABS Lymphocytes 1.3 10^3/ul (1.0-4.8); ABS Monocytes 1.2 10^3/ul (0-0.8); ABS Neutrophils 13.9 10^3/ul (1.5-7.7); ABS Nucleated RBC 0 10^3/ul; Eosinophil % 0.9 %; Hematocrit 32 % (35-47); Lymphocyte % 7.7 %; Mean Corpuscular HGB Conc 32 g/dl (31-36); Mean Corpuscular Hemoglobin 28 pg (27-31); Mean Corpuscular Volume 89 fL (80-97); Mean Platelet Volume 8.7 fL (7.4-10.4); Nucleated Red Blood Cells % 0.1; Platelet Count 406 10^3/ul (150-450); Red Blood Count 3.58 10^6/ul (4.00-5.40); Red Cell Distribution Width 16 % (10.5-15); White Blood Count 16.6 10^3/ul (3.5-10.8)
[2018-10-26 05:37] LABS: BUN/Creatinine Ratio 28.9 (8-20); Calcium 8.2 mg/dL (8.6-10.3); EGFR African American 30.9 (>60); EGFR Non-African American 25.5 (>60); Magnesium 1.8 mg/dL (1.9-2.7); Potassium 4.1 mmol/L (3.5-5.0)
[2018-10-26] MEDS ORDERED: Magnesium Sulfate 2 GM IV* 2 GM/50 ML BAG IVPB ONE (07:20)
[2018-10-26] MEDS ORDERED: Furosemide IV* 10 MG/ML VIAL (40 MG) IV SCH (09:00)
[2018-10-26] MEDS ORDERED: Piperacillin/Tazobac ADVAN(*) 3.375 GM in NS 0.9% 100 ML* 100 ML IVPB ONE (09:03)
--- NOTE | 2018-10-26 09:03 | PN ---
Subjective Date of Service: 10/26/18 Interval History: No Acute Events overnight. Afebrile. 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 WBC 16.6 from 17.0 Thinks breathing is a little better. Denies chest pain, abdominal pain, fever, chills, n/v/d/c. had BM. Objective Active Medications: Acetaminophen (Tylenol Tab*) 650 mg PO Q6H PRN PRN Reason: pain/fever Last Admin: 10/24/18 11:42 Dose: 650 mg Apixaban (Eliquis*) 2.5 mg PO BID [facility] Last Admin: 10/25/18 22:38 Dose: 2.5 mg Dextrose (D50w Syringe 50 Ml*) 12.5 gm IV PUSH .FOR FS < 60 - SS PRN PRN Reason: FS < 60 Dextrose (D50w Syringe 50 Ml*) 12.5 gm IV PUSH .FOR FS < 60 - SS PRN PRN Reason: FS < 60 Diltiazem HCl (Cardizem Cd Cap*) 240 mg PO DAILY [facility] Insulin Glargine (Lantus(*)) 25 units SUBCUT Q12H [facility] Insulin Human Lispro (Humalog*) 0 units SUBCUT AC [facility]; Protocol Last Admin: 10/25/18 18:15 Dose: 15 unit Ipratropium [place] (Atrovent 0.5 Mg Neb.Kim*) 0.5 mg INH [id number] AWAKE [facility] Last Admin: 10/26/18 02:02 Dose: Not Given Levalbuterol HCl (Xopenex 0.63mg/3ml Neb*) 0.63 mg INH [id number] AWAKE [facility] Last Admin: 10/26/18 02:02 Dose: Not Given Metoprolol Succinate (Toprol Xl Tab*) 25 mg PO BID [facility] Last Admin: 10/25/18 22:38 Dose: 25 mg Vital Signs - 8 hr 10/26/18 10/26/18 10/26/18 03:19 03:30 07:23 Temperature 98.3 F 97.0 F Pulse Rate 85 80 Respiratory 28 32 Rate Blood Pressure 123/55 133/68 (mmHg) O2 Sat by Pulse 92 96 95 Oximetry Oxygen Devices in Use Now: Nasal Cannula Appearance: NAD, chronically ill appearing but improved. Eyes: No Scleral Icterus Respiratory: - - reduced at left base, expiratory wheeze Cardiovascular: - - irregularly irregular, not tachycardic. no m/r/g Abdominal: NL Sounds; No Tenderness; No Distention, No Hepatosplenomegaly Extremities: - - 1+ pedal edema on left, mild b/l erythema no warmth or tenderness. Skin: No Rash or Ulcers Neurological: Alert and Oriented x 3 Nutrition: Taking PO's Result Diagrams: 10/26/18 05:05 10/26/18 05:05 Additional Lab and Data: Laboratory Results - last 24 hr 10/25/18 10/25/18 10/25/18 11:19 11:35 16:36 WBC RBC Hgb Hct MCV MCH MCHC RDW Plt Count MPV Neut % (Auto) Lymph % (Auto) [place] % (Auto) Eos % (Auto) Baso % (Auto) Absolute Neuts (auto) Absolute Lymphs (auto) Absolute Monos (auto) Absolute Eos (auto) Absolute Basos (auto) Absolute Nucleated RBC Nucleated RBC % Sodium Potassium Chloride Carbon Dioxide Anion Gap BUN Creatinine Est GFR ( Amer) Est GFR (Non-Af Amer) BUN/Creatinine Ratio Glucose POC Glucose (mg/dL) > 444 H* 408 H* Glucose Meter Confirm 435 H Calcium Magnesium 10/25/18 10/25/18 10/26/18 16:53 17:57 05:05 WBC RBC Hgb Hct MCV MCH MCHC RDW Plt Count MPV Neut % (Auto) Lymph % (Auto) [place] % (Auto) Eos % (Auto) Baso % (Auto) Absolute Neuts (auto) Absolute Lymphs (auto) Absolute Monos (auto) Absolute Eos (auto) Absolute Basos (auto) Absolute Nucleated RBC Nucleated RBC % Sodium 129 L Potassium 4.1 Chloride 99 L Carbon Dioxide 24 Anion Gap 6 BUN 54 H Creatinine 1.87 H Est GFR ( Amer) 30.9 Est GFR (Non-Af Amer) 25.5 BUN/Creatinine Ratio 28.9 H Glucose 299 H POC Glucose (mg/dL) 377 H Glucose Meter Confirm 370 H Calcium 8.2 L Magnesium 1.8 L 10/26/18 10/26/18 05:05 08:14 WBC 16.6 H RBC 3.58 L Hgb 10.0 L Hct 32 L MCV 89 MCH 28 MCHC 32 RDW 16 H Plt Count 406 MPV 8.7 Neut % (Auto) 83.7 Lymph % (Auto) 7.7 [place] % (Auto) 7.2 Eos % (Auto) 0.9 Baso % (Auto) 0.5 Absolute Neuts (auto) 13.9 H Absolute Lymphs (auto) 1.3 Absolute Monos (auto) 1.2 H Absolute Eos (auto) 0.1 Absolute Basos (auto) 0.1 Absolute Nucleated RBC 0 Nucleated RBC % 0.1 Sodium Potassium Chloride Carbon Dioxide Anion Gap BUN Creatinine Est GFR ( Amer) Est GFR (Non-Af Amer) BUN/Creatinine Ratio Glucose POC Glucose (mg/dL) 296 H Glucose Meter Confirm Calcium Magnesium Microbiology and Other Data: Microbiology 10/23/18 15:29 Blood Venous Aerobic Blood Culture - Preliminary No Growth Day 2 10/23/18 15:29 Blood Venous Anaerobic Blood Culture - Preliminary No Growth Day 2 10/23/18 14:24 Blood Venous Aerobic Blood Culture - Preliminary No Growth Day 2 10/23/18 14:24 Blood Venous Anaerobic Blood Culture - Preliminary No Growth Day 2 10/23/18 13:45 Urine Urine Culture - Final Escherichia Coli 10/24/18 02:00 Nasal Nasal Screen MRSA (PCR) - Final Mrsa Not Detected 10/24/18 02:00 Nasal Influenza Types A,B Antigen - Final Specimen received for Influenza A/B Molecular testing Assess/Plan/Problems-Billing Assessment: 88 yo female PMH NIDDM (recently much worse control), Afib(on eliquis), HTN, anxiety, morbid obesity, CKD stage 3 p/w with increasing fatigue, fall, poor po intake. Fevers, leukocytosis, tachypnea, tachycardia, anion gap. Sepsis thought secondary to Ecoli UTI and later on lateral view CXR showing left basilar/ lingular consolidation worrisome for pneumonia(had recent doxy course 2 weeks). Acute hypoxic respiratory failure. Course complicated by Afib with RVR. Switching to Zosyn given persistent leukocytosis and intermittent increased work of breathing. - Patient Problems (1) Sepsis Current Visit: Yes Status: Acute Comment: Likely secondary to Ecoli UTI ( sensitive to cftx and FQs) and initially occult left basilar pneumonia seen now on his 3rd CXR (this time PA/LAT) admission Initially: Leukocytosis(persists), tachypnea(intermittent), tachycardia(resolved ), febrile Tmax 100.9(resolved), hypotensive(resolves). f/u Bcx NGTD s/p vanc, cefepime and flagyl in ED. Then 2 days of Cftx. Day 4 antibiotics. Will switch to zosyn given persistent leukocytosis, respiratory failure and new suspicion for pneumonia recently getting doxycycline 2 weeks prior to admission. Get sputum Cx. Strep PNA, Urine Ag. (2) Acute respiratory failure with hypoxia Current Visit: Yes Status: Acute Code(s): J96.01 - ACUTE RESPIRATORY FAILURE WITH HYPOXIA SNOMED Code(s): 62058975 Comment: Likely 2/2 left basilar and lingular pneumonia/consolidation (seen on CXR PA/LAT 10/25). Also worsened when she was in Afib with RVR. DDimer>1050. No e/o of PE on v/q scan. no DVTs and is on Eliquis (though renal/age reduced doseage). On 3-4L, intermitent tachypnea and grunting with talking. expiratory wheezing on exam. Likely component of obesity hypoventilation syndrome based on super morbid obesity. ECHO 10/24 with EF 60-65%, RVSP 33mm. continue ipratropium + xopenex nebs today. 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 stop diuretics get Urine Lytes. (3) Acute diastolic CHF (congestive heart failure) Current Visit: Yes Status: Acute Code(s): I50.31 - ACUTE DIASTOLIC ( CONGESTIVE) HEART FAILURE SNOMED Code(s): 692186708 Comment: strict i/o, daily weights BNP 276 -> 196 got 1 dose of lasix 40mg IV on 10/25. hold further given bump in creatinine form 1.53 to 1.87 with increase in BUN. urine lytes (4) E-coli UTI Current Visit: Yes Status: Acute Code(s): N39.0 - URINARY TRACT INFECTION, SITE NOT SPECIFIED; B96.20 - UNSP ESCHERICHIA COLI THE CAUSE OF DISEASES CLASSD [facility] SNOMED Code(s): 868183477 Comment: antibiotics as above. Sensitive to CFTX/FQs. INT zosyn. did get 2 days cftx and cefepime in ED. (5) Rapid atrial fibrillation Current Visit: No Status: Acute Priority: High Onset Date: 04/20/14 Code (s): I48.91 - UNSPECIFIED ATRIAL FIBRILLATION SNOMED Code(s): 266450054 Comment: resolved keep >2. K>4 continue eliquis 2.5mg BID. switch from dilt 60q6 to home dilt cd 240mg. (6) Morbid obesity Current Visit: Yes Status: Acute Code(s): E66.01 - MORBID (SEVERE) OBESITY DUE TO EXCESS CALORIES SNOMED Code(s): 590807557 (7) Insulin dependent diabetes mellitus Current Visit: Yes Status: Acute Code(s): E11.9 - TYPE 2 DIABETES MELLITUS WITHOUT COMPLICATIONS; Z79.4 - SENIOR LIVING (CURRENT) USE OF INSULIN SNOMED Code( s): 34711469 Comment: much worse control recently. increase lantus to 25U BID from 15U BID , poc qachs. SSI A1C 11.4 home was januvia, metoformin, trulicity Status and Disposition: medicine inpatient. PT rec of MARY JO currently. Anticipate may be ready 10/28
[2018-10-26 09:09] LABS: C Reactive Protein 373.6 mg/L (<8.01)
[2018-10-26] MEDS: Metoprolol Succinate XL TAB* 25 MG PO SCH ×2 (09:45→21:30)
[2018-10-26] MEDS: Insulin LISPRO* 1 UNITS UNIT SUBCUT SCH ×3 (09:49→18:32)
[2018-10-26 09:53] LABS: Urine Creatinine Concentration 110.09 mg/dL
[2018-10-26] MEDS: Apixaban* 2.5 MG TAB PO SCH ×2 (09:56→21:30)
[2018-10-26] MEDS ORDERED: Zosyn per Pharmacy* NOTE FOLLOW UP SCH (10:00)
[2018-10-26] MEDS: Diltiazem CD CAP* 240 MG PO SCH (13:35)
[2018-10-26] MEDS: ZOSYN 3.375 GM Q12H per EXTENDED INFUSION IVPB SCH ×2 (15:59)
[2018-10-26] MEDS ORDERED: Insulin LISPRO* 1 UNITS UNIT SUBCUT ONE (17:07)
[2018-10-26] MEDS: Acetaminophen TAB* 325 MG PO PRN (21:30)
[2018-10-27] MEDS: Levalbuterol 0.63MG/3ML NEB* UNIT OF USE INH SCH ×4 (01:28→19:57)
[2018-10-27] MEDS: Ipratropium 0.5MG/2.5ML NEB* 0.5 MG/2.5 ML NEB.SOLN INH SCH ×4 (01:28→19:57)
[2018-10-27] MEDS: ZOSYN 3.375 GM Q12H per EXTENDED INFUSION IVPB SCH ×4 (03:38→16:44)
[2018-10-27 05:38] LABS: ABS Basophils 0.1 10^3/ul (0-0.2); ABS Eosinophils 0.3 10^3/ul (0-0.6); ABS Lymphocytes 1.1 10^3/ul (1.0-4.8); ABS Monocytes 1.1 10^3/ul (0-0.8); ABS Neutrophils 13.5 10^3/ul (1.5-7.7); ABS Nucleated RBC 0 10^3/ul; Eosinophil % 1.8 %; Hematocrit 31 % (35-47); Hemoglobin 9.9 g/dl (12.0-16.0); Mean Corpuscular HGB Conc 32 g/dl (31-36); Mean Corpuscular Hemoglobin 28 pg (27-31); Mean Corpuscular Volume 89 fL (80-97); Mean Platelet Volume 8.7 fL (7.4-10.4); Nucleated Red Blood Cells % 0; Platelet Count 421 10^3/ul (150-450); Red Blood Count 3.52 10^6/ul (4.00-5.40); Red Cell Distribution Width 16 % (10.5-15); White Blood Count 16.2 10^3/ul (3.5-10.8)
[2018-10-27 05:59] LABS: BUN/Creatinine Ratio 34.9 (8-20); Calcium 8.4 mg/dL (8.6-10.3); EGFR African American 33.3 (>60); EGFR Non-African American 27.6 (>60); Magnesium 2.2 mg/dL (1.9-2.7); Potassium 3.9 mmol/L (3.5-5.0)
--- NOTE | 2018-10-27 09:14 | PN ---
Subjective Date of Service: 10/27/18 Interval History: No acute events overnight. 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 Objective Active Medications: Acetaminophen (Tylenol Tab*) 650 mg PO Q6H PRN PRN Reason: pain/fever Last Admin: 10/26/18 21:30 Dose: 650 mg Apixaban (Eliquis*) 2.5 mg PO BID [facility] Last Admin: 10/26/18 21:30 Dose: 2.5 mg Dextrose (D50w Syringe 50 Ml*) 12.5 gm IV PUSH .FOR FS < 60 - SS PRN PRN Reason: FS < 60 Dextrose (D50w Syringe 50 Ml*) 12.5 gm IV PUSH .FOR FS < 60 - SS PRN PRN Reason: FS < 60 Diltiazem HCl (Cardizem Cd Cap*) 240 mg PO DAILY [facility] Last Admin: 10/26/18 13:35 Dose: 240 mg Piperacillin Sod/Tazobactam (Sod 3.375 gm/ Sodium Chloride) 100 mls @ 25 mls/ hr IVPB Q12H [facility] Last Admin: 10/27/18 03:38 Dose: 25 mls/hr Insulin Glargine (Lantus(*)) 25 units SUBCUT Q12H [facility] Last Admin: 10/26/18 21:33 Dose: 25 units Insulin Human Lispro (Humalog*) 0 units SUBCUT AC [facility]; Protocol Last Admin: 10/26/18 18:32 Dose: Not Given Ipratropium [place] (Atrovent 0.5 Mg Neb.Kim*) 0.5 mg INH [id number] AWAKE [facility] Last Admin: 10/27/18 08:29 Dose: 0.5 mg Levalbuterol HCl (Xopenex 0.63mg/3ml Neb*) 0.63 mg INH [id number] AWAKE [facility] Last Admin: 10/27/18 08:29 Dose: 0.63 mg Metoprolol Succinate (Toprol Xl Tab*) 25 mg PO BID [facility] Last Admin: 10/26/18 21:30 Dose: 25 mg Pharmacy Consult (Zosyn Per Pharmacy*) 1 note FOLLOW UP .ZOSYN PER PHARMACY [facility] Vital Signs - 8 hr 10/27/18 10/27/18 10/27/18 03:38 03:54 07:46 Temperature 97.4 F 97.9 F Pulse Rate 83 79 Respiratory 16 30 Rate Blood Pressure 113/45 121/48 131/49 (mmHg) O2 Sat by Pulse 96 98 Oximetry 10/27/18 08:24 Temperature Pulse Rate 78 Respiratory 20 Rate Blood Pressure (mmHg) O2 Sat by Pulse 98 Oximetry Oxygen Devices in Use Now: Nasal Cannula Appearance: NAD, Sitting in Chair after hoyered Eyes: No Scleral Icterus Ears/Nose/Mouth/Throat: NL Teeth, Lips, Gums Neck: NL Appearance and Movements; NL JVP, Trachea Midline Respiratory: - - expiratory wheezing, no rales, decreased right base. no rhonchi. Cardiovascular: NL Sounds; No Murmurs; No JVD, RRR Abdominal: NL Sounds; No Tenderness; No Distention, No Hepatosplenomegaly, - - obese Extremities: - - dependent calf edema 1-2+ Neurological: - - oriented to name, Oct 2018 and situation. Initially says in "hotel" but expressing concept that she is in place of sick people Nutrition: Taking PO's Result Diagrams: 10/27/18 05:09 10/27/18 05:09 Additional Lab and Data: Laboratory Results - last 24 hr 10/25/18 10/25/18 10/25/18 11:19 11:35 16:36 WBC RBC Hgb Hct MCV MCH MCHC RDW Plt Count MPV Neut % (Auto) Lymph % (Auto) [place] % (Auto) Eos % (Auto) Baso % (Auto) Absolute Neuts (auto) Absolute Lymphs (auto) Absolute Monos (auto) Absolute Eos (auto) Absolute Basos (auto) Absolute Nucleated RBC Nucleated RBC % Sodium Potassium Chloride Carbon Dioxide Anion Gap BUN Creatinine Est GFR ( Amer) Est GFR (Non-Af Amer) BUN/Creatinine Ratio Glucose POC Glucose (mg/dL) > 444 H* 408 H* Glucose Meter Confirm 435 H Calcium Magnesium 10/25/18 10/25/18 10/26/18 16:53 17:57 05:05 WBC RBC Hgb Hct MCV MCH MCHC RDW Plt Count MPV Neut % (Auto) Lymph % (Auto) [place] % (Auto) Eos % (Auto) Baso % (Auto) Absolute Neuts (auto) Absolute Lymphs (auto) Absolute Monos (auto) Absolute Eos (auto) Absolute Basos (auto) Absolute Nucleated RBC Nucleated RBC % Sodium 129 L Potassium 4.1 Chloride 99 L Carbon Dioxide 24 Anion Gap 6 BUN 54 H Creatinine 1.87 H Est GFR ( Amer) 30.9 Est GFR (Non-Af Amer) 25.5 BUN/Creatinine Ratio 28.9 H Glucose 299 H POC Glucose (mg/dL) 377 H Glucose Meter Confirm 370 H Calcium 8.2 L Magnesium 1.8 L 10/26/18 10/26/18 05:05 08:14 WBC 16.6 H RBC 3.58 L Hgb 10.0 L Hct 32 L MCV 89 MCH 28 MCHC 32 RDW 16 H Plt Count 406 MPV 8.7 Neut % (Auto) 83.7 Lymph % (Auto) 7.7 [place] % (Auto) 7.2 Eos % (Auto) 0.9 Baso % (Auto) 0.5 Absolute Neuts (auto) 13.9 H Absolute Lymphs (auto) 1.3 Absolute Monos (auto) 1.2 H Absolute Eos (auto) 0.1 Absolute Basos (auto) 0.1 Absolute Nucleated RBC 0 Nucleated RBC % 0.1 Sodium Potassium Chloride Carbon Dioxide Anion Gap BUN Creatinine Est GFR ( Amer) Est GFR (Non-Af Amer) BUN/Creatinine Ratio Glucose POC Glucose (mg/dL) 296 H Glucose Meter Confirm Calcium Magnesium Microbiology and Other Data: Microbiology 10/23/18 15:29 Blood Venous Aerobic Blood Culture - Preliminary No Growth Day 2 10/23/18 15:29 Blood Venous Anaerobic Blood Culture - Preliminary No Growth Day 2 10/23/18 14:24 Blood Venous Aerobic Blood Culture - Preliminary No Growth Day 2 10/23/18 14:24 Blood Venous Anaerobic Blood Culture - Preliminary No Growth Day 2 10/23/18 13:45 Urine Urine Culture - Final Escherichia Coli 10/24/18 02:00 Nasal Nasal Screen MRSA (PCR) - Final Mrsa Not Detected 10/24/18 02:00 Nasal Influenza Types A,B Antigen - Final Specimen received for Influenza A/B Molecular testing Assess/Plan/Problems-Billing Assessment: 88 yo female [facility] NIDDM (recently much worse control, A1C 11.4), Afib(on eliquis) , HTN, anxiety, morbid obesity and likely some obesity hypoventilation syndrome , CKD stage 3 p/w with increasing fatigue, fall, poor po intake. Fevers, leukocytosis, tachypnea, tachycardia, anion gap. Sepsis thought secondary to Ecoli UTI and later on lateral view CXR showing left basilar/lingular consolidation worrisome for pneumonia(also had recent doxy course 2 weeks prior) . Acute hypoxic respiratory failure. Course complicated by Afib with RVR. CFTX ( 3d) -> Zosyn + doxy. Will need MARY JO (lives alone). - Patient Problems (1) Sepsis Current Visit: Yes Status: Acute Comment: Likely secondary to Ecoli UTI ( sensitive to cftx and FQs) and initially occult left basilar pneumonia seen now on his 3rd CXR 10/26 this time PA/LAT Initially: Leukocytosis(persists), tachypnea(intermittent), tachycardia(resolved ), febrile Tmax 100.9(resolved), hypotensive(resolved). f/u Bcx NGTD s/p vanc, cefepime and flagyl in ED. Then 2 days of Cftx. Day 5 antibiotics with this 2nd day of zosyn and will start doxycyline 100mg BID for atypical coverage Get sputum Cx if able. Says occasionall productive. Strep PNA Urine Ag & Legionella UAg. (still pending) (2) Acute respiratory failure with hypoxia Current Visit: Yes Status: Acute Code(s): J96.01 - ACUTE RESPIRATORY FAILURE WITH HYPOXIA SNOMED Code(s): 17459723 Comment: Likely 2/2 left basilar and lingular pneumonia/consolidation (seen on CXR PA/LAT 10/25). Also worsened when she was in Afib with RVR. DDimer>1050. No e/o of PE on v/q scan. no DVTs and is on Eliquis (though renal/age reduced doseage). On 3L currently, less tachypneic and feeling better. expiratory wheezing persists on exam. Likely component of obesity hypoventilation syndrome based on super morbid obesity. ECHO 2/ with EF 60-65%, RVSP 33mm. continue ipratropium + xopenex nebs. Add dulera. Going to add prednisone 40mg daily now that sugars are a bit better controlled. BNP down . FeUrea prerenal. daily weights, strict io. She has worse edema in the legs this morning but also first time in chairs. Likely will need to start diuresis tomorrow. Will need repeat PA/LAT CXR in future days. (3) Acute diastolic CHF (congestive heart failure) Current Visit: Yes Status: Acute Code(s): I50.31 - ACUTE DIASTOLIC ( CONGESTIVE) HEART FAILURE SNOMED Code(s): 386177876 Comment: strict i/o, daily weights BNP 276 -> 196 got 1 dose of lasix 40mg IV on 10/25. hold further given bump in creatinine form 1.53 to 1.87 (now improved to 1.75 but still elevating BUN and FeUrea 25% PreRenal. Likely will need to restart diuresis tomorrow. (4) E-coli UTI Current Visit: Yes Status: Acute Code(s): N39.0 - URINARY TRACT INFECTION, SITE NOT SPECIFIED; B96.20 - UNSP ESCHERICHIA COLI THE CAUSE OF [facility]EASES [facility]SD [facility] SNOMED Code(s): 086958961 Comment: antibiotics as above. Sensitive to CFTX/FQs. INT zosyn. did get 2 days cftx and cefepime in ED. (5) Rapid atrial fibrillation Current Visit: No Status: Acute Priority: High Onset Date: 04/20/14 Code (s): I48.91 - UNSPECIFIED ATRIAL FIBRILLATION SNOMED Code(s): 298525048 Comment: resolved keep >2. K>4 continue eliquis 2.5mg BID. continue home dilt cd 240mg. (6) Morbid obesity Current Visit: Yes Status: Acute Code(s): E66.01 - MORBID (SEVERE) OBESITY DUE TO EXCESS CALORIES SNOMED Code(s): 192241346 (7) Insulin dependent diabetes mellitus Current Visit: Yes Status: Acute Code(s): E11.9 - TYPE 2 DIABETES MELLITUS WITHOUT COMPLICATIONS; Z79.4 - IT APPLICATIONS MANAGER (CURRENT) USE OF INSULIN SNOMED Code( s): 66758259 Comment: much worse control recently. 200s now compared to 400s.increase lantus from 25U BID to 28U BID as likely will get some postprandial worsening now that I am starting prednisone 40mg. poc qachs. high dose SSI. A1C 11.4 home was andreas schmid trulicity Status and Disposition: medicine inpatient. PT will need MARY JO. (needing a felipe, lives alone), Anticipate will need another 48-72h inpatient.
[2018-10-27] MEDS: Insulin GLARGINE(*) 1 UNITS UNIT SUBCUT SCH ×2 (09:16→21:19)
[2018-10-27] MEDS: Diltiazem CD CAP* 240 MG PO SCH (09:18)
[2018-10-27] MEDS: Insulin LISPRO* 1 UNITS UNIT SUBCUT SCH ×3 (09:18→17:04)
[2018-10-27] MEDS: Apixaban* 2.5 MG TAB PO SCH ×2 (09:18→22:49)
[2018-10-27] MEDS: Metoprolol Succinate XL TAB* 25 MG PO SCH ×2 (09:18→22:49)
[2018-10-27] MEDS: DOXYcycline CAP(*) 100 MG PO SCH ×2 (11:37→22:48)
[2018-10-27] MEDS: Mometasone/Formoter 200/5 MDI INH SCH ×2 (13:06→19:58)
[2018-10-27] MEDS ORDERED: Polyethylene Glycol 3350* 17 GM PACKET PO PRN (19:24)
[2018-10-27] MEDS ORDERED: Insulin GLARGINE(*) 1 UNITS UNIT SUBCUT SCH (21:00)
[2018-10-27] MEDS: Docusate CAP* 100 MG PO SCH (22:48)
[2018-10-28] MEDS: Ipratropium 0.5MG/2.5ML NEB* 0.5 MG/2.5 ML NEB.SOLN INH SCH ×4 (01:08→19:27)
[2018-10-28] MEDS: Levalbuterol 0.63MG/3ML NEB* UNIT OF USE INH SCH ×4 (01:08→19:27)
[2018-10-28] MEDS: ZOSYN 3.375 GM Q12H per EXTENDED INFUSION IVPB SCH ×4 (04:11→15:33)
[2018-10-28] MEDS: Acetaminophen TAB* 325 MG PO PRN (04:48)
[2018-10-28 05:45] LABS: ABS Basophils 0 10^3/ul (0-0.2); ABS Eosinophils 0.3 10^3/ul (0-0.6); ABS Lymphocytes 1.3 10^3/ul (1.0-4.8); ABS Monocytes 1.2 10^3/ul (0-0.8); ABS Neutrophils 10.8 10^3/ul (1.5-7.7); ABS Nucleated RBC 0 10^3/ul; Eosinophil % 2.2 %; Hematocrit 31 % (35-47); Hemoglobin 9.7 g/dl (12.0-16.0); Lymphocyte % 9.7 %; Mean Corpuscular HGB Conc 32 g/dl (31-36); Mean Corpuscular Hemoglobin 28 pg (27-31); Mean Corpuscular Volume 88 fL (80-97); Mean Platelet Volume 8.4 fL (7.4-10.4); Nucleated Red Blood Cells % 0; Platelet Count 457 10^3/ul (150-450); Red Blood Count 3.46 10^6/ul (4.00-5.40); Red Cell Distribution Width 16 % (10.5-15); White Blood Count 13.6 10^3/ul (3.5-10.8)
[2018-10-28 05:50] LABS: Calcium 8.4 mg/dL (8.6-10.3); EGFR African American 36.5 (>60); EGFR Non-African American 30.1 (>60); Potassium 3.9 mmol/L (3.5-5.0)
[2018-10-28] MEDS: Mometasone/Formoter 200/5 MDI INH SCH ×2 (07:11→19:34)
[2018-10-28] MEDS: DOXYcycline CAP(*) 100 MG PO SCH ×2 (08:35→19:22)
[2018-10-28] MEDS: predniSONE TAB* 20 MG PO SCH (08:35)
[2018-10-28] MEDS: Docusate CAP* 100 MG PO SCH ×2 (08:35→19:22)
[2018-10-28] MEDS: Insulin LISPRO* 1 UNITS UNIT SUBCUT SCH ×3 (08:36→16:21)
[2018-10-28] MEDS: Diltiazem CD CAP* 240 MG PO SCH (08:36)
[2018-10-28] MEDS: Metoprolol Succinate XL TAB* 25 MG PO SCH ×2 (08:36→19:22)
[2018-10-28] MEDS: Insulin GLARGINE(*) 1 UNITS UNIT SUBCUT SCH ×2 (08:36→20:41)
[2018-10-28] MEDS: Apixaban* 2.5 MG TAB PO SCH ×2 (08:36→19:22)
--- NOTE | 2018-10-28 14:20 | PN ---
Subjective Date of Service: 10/28/18 Interval History: Ms. Frias is feeling much better today. She denies SOB, CP, N/V. She does feel bloated. Nursing reports that she got up to the chair with 2 assist today, previously was a felipe. Family History: Unchanged from Admission Social History: Unchanged from Admission Past Medical History: Unchanged from Admission Objective Active Medications: Acetaminophen (Tylenol Tab*) 650 mg PO Q6H PRN pain/fever Apixaban (Eliquis*) 2.5 mg PO BID [facility] Dextrose (D50w Syringe 50 Ml*) 12.5 gm IV PUSH .FOR FS < 60 - SS PRN FS < 60 Diltiazem HCl (Cardizem Cd Cap*) 240 mg PO DAILY [facility] Docusate Sodium (Colace Cap*) 100 mg PO BID [facility] Doxycycline Hyclate (Vibramycin Cap(*)) 100 mg PO BID [facility] Piperacillin Sod/Tazobactam (Sod 3.375 gm/ Sodium Chloride) 100 mls @ 25 mls/ hr IVPB Q12H [facility] Insulin Glargine (Lantus(*)) 35 units SUBCUT Q12H [facility] Insulin Human Lispro (Humalog*) 0 units SUBCUT AC [facility]; Protocol Ipratropium [place] (Atrovent 0.5 Mg Neb.Kim*) 0.5 mg INH [id number] AWAKE [facility] Levalbuterol HCl (Xopenex 0.63mg/3ml Neb*) 0.63 mg INH [id number] AWAKE [facility] Metoprolol Succinate (Toprol Xl Tab*) 25 mg PO BID [facility] Mometasone Furoate/Formoterol Fumar (Dulera 200/5 Mdi*) 2 puff INH BID [facility] Polyethylene Glycol/Electrolytes (Miralax*) 17 gm PO DAILY PRN CONSTIPATION Prednisone (Deltasone Tab*) 40 mg PO DAILY [facility] Vital Signs - 8 hr 10/28/18 10/28/18 10/28/18 07:12 07:15 07:52 Temperature 97.5 F Pulse Rate 85 74 Respiratory 17 26 29 Rate Blood Pressure 130/51 (mmHg) O2 Sat by Pulse 95 99 Oximetry 10/28/18 10/28/18 10:55 12:50 Temperature 96.8 F Pulse Rate 85 73 Respiratory 28 18 Rate Blood Pressure 139/70 (mmHg) O2 Sat by Pulse 95 93 Oximetry Oxygen Devices in Use Now: Nasal Cannula - 3L Appearance: Elderly female sitting in chair in NAD Eyes: No Scleral Icterus Ears/Nose/Mouth/Throat: Mucous Membranes Moist Neck: NL Appearance and Movements; NL JVP, Trachea Midline Respiratory: Symmetrical Chest Expansion and Respiratory Effort, - - Fine crackles to bilat bases, otherwise diminished Cardiovascular: NL Sounds; No Murmurs; No JVD, RRR Abdominal: NL Sounds; No Tenderness; No Distention Extremities: - - +2 generalized pitting edema Neurological: - - Oriented to self and place Lines/Tubes/Other Access: Clean, Dry and Intact [place], Clean, Dry and Intact Peripheral IV Nutrition: Taking PO's Result Diagrams: 10/28/18 05:18 10/28/18 05:18 Assess/Plan/Problems-Billing Assessment: Ms. Frias is an 88 yo female with PMH of NIDDM (recently much worse control, A1C 11.4), Afib(on eliquis), HTN, anxiety, morbid obesity and likely some obesity hypoventilation syndrome, CKD stage 3 p/w with increasing fatigue, fall , poor po intake. Fevers, leukocytosis, tachypnea, tachycardia, anion gap. Sepsis thought secondary to Ecoli UTI and later on lateral view CXR showing left basilar/lingular consolidation worrisome for pneumonia(also had recent doxy course 2 weeks prior). Acute hypoxic respiratory failure. Course complicated by Afib with RVR. CFTX (3d) -> Zosyn + doxy. - Patient Problems (1) Acute diastolic CHF (congestive heart failure) Code(s): I50.31 - ACUTE DIASTOLIC (CONGESTIVE) HEART FAILURE Comment: - Strict I&O, daily weights - BNP 276 on admission, now down to 196 - One dose IV furosemide on 10/25, but further diuresis was held d/t bump in creatinine - Give one dose IV furosemide today and will recheck BMP in the AM (2) Acute respiratory failure with hypoxia Code(s): J96.01 - ACUTE RESPIRATORY FAILURE WITH HYPOXIA Comment: - Secondary to pneumonia, obesity hypoventilation syndrome - Continues to require 3L NC - Elevated ddimer, but no evidence of PE or DVT on imaging - Will likely repeat CxR this weeked - Continue nebs, Dulera, prednisone (3) Pneumonia Code(s): J18.9 - PNEUMONIA, UNSPECIFIED ORGANISM Comment: - Seen on CxR on 10/26 - Negative strep pneumo and legionella urine antigens - Continue Dawnasynbarb (4) E-coli UTI Code(s): N39.0 - URINARY TRACT INFECTION, SITE NOT SPECIFIED; B96.20 - UNSP ESCHERICHIA COLI THE CAUSE OF DISEASES CLASSD [facility] Comment: - Urine culture growing >100k colonies of E. coli - Continue Zosyn (5) JIGNA (acute kidney injury) Code(s): N17.9 - ACUTE KIDNEY FAILURE, UNSPECIFIED Comment: - Secondary to fluid volume excess, diuretic use - CKD stage 3 at baseline - FENa indicates prerenal source - Creatinine now back at baseline (approx 1.6) (6) Sepsis Comment: - Resolved - Secondary to UTI, pneumonia - Met sepsis criteria on admission with leukocytosis, tachypnea, tachycardia, fever; met qSOFA criteria with tachypnea - No growth on blood cultures - Plan as above (7) Rapid atrial fibrillation Code(s): I48.91 - UNSPECIFIED ATRIAL FIBRILLATION Comment: - Now resolved; still in afib, but rate controlled - Attempt to keep magnesium >2, potassium >4 - Continue Eliquis, diltiazem, metoprolol (8) Diabetes mellitus, type 2 Comment: - Uncontrolled, A1c 11.4% - Hold metformin, Januvia, Trulicity - Continue Lantus, Lispro SS (9) Morbid obesity Code(s): E66.01 - MORBID (SEVERE) OBESITY DUE TO EXCESS CALORIES Comment: - BMI 42 - Supportive care (10) DVT prophylaxis Comment: - Eliquis (11) Full code status Code(s): Z78.9 - OTHER SPECIFIED HEALTH STATUS Comment: Status and Disposition: Inpatient. Anticipate will need another 48-72h for diuresis. Attending: Ronny Craig
[2018-10-28] MEDS ORDERED: Furosemide IV* 10 MG/ML VIAL (40 MG) IV ONE (16:58)
[2018-10-28] MEDS ORDERED: Insulin LISPRO* 1 UNITS UNIT SUBCUT ONE (20:46)
[2018-10-28] MEDS ORDERED: Dextrose 50% Syringe 50 ML* 25 GM/50 ML SYRINGE IV PUSH PRN (20:46)
[2018-10-29] MEDS: Ipratropium 0.5MG/2.5ML NEB* 0.5 MG/2.5 ML NEB.SOLN INH SCH ×4 (01:23→19:26)
[2018-10-29] MEDS: Levalbuterol 0.63MG/3ML NEB* UNIT OF USE INH SCH ×4 (01:23→19:26)
[2018-10-29] MEDS: ZOSYN 3.375 GM Q12H per EXTENDED INFUSION IVPB SCH ×4 (04:26→15:53)
[2018-10-29 05:16] LABS: Hematocrit 32 % (35-47); Mean Corpuscular HGB Conc 32 g/dl (31-36); Mean Corpuscular Hemoglobin 28 pg (27-31); Mean Corpuscular Volume 90 fL (80-97); Mean Platelet Volume 8.4 fL (7.4-10.4); Platelet Count 454 10^3/ul (150-450); Red Blood Count 3.52 10^6/ul (4.00-5.40); Red Cell Distribution Width 16 % (10.5-15); White Blood Count 12.6 10^3/ul (3.5-10.8)
[2018-10-29 05:37] LABS: ABS Basophils 0 10^3/ul (0-0.2); ABS Eosinophils 0 10^3/ul (0-0.6); ABS Lymphocytes 0.9 10^3/ul (1.0-4.8); ABS Neutrophils 10.7 10^3/ul (1.5-7.7); ABS Nucleated RBC 0 10^3/ul; Eosinophil % 0.3 %; Lymphocyte % 7.3 %; Nucleated Red Blood Cells % 0
[2018-10-29 05:45] LABS: Calcium 8.3 mg/dL (8.6-10.3); Magnesium 1.9 mg/dL (1.9-2.7); Potassium 4.8 mmol/L (3.5-5.0)
[2018-10-29 05:51] LABS: BUN/Creatinine Ratio 36.1 (8-20); EGFR African American 34.7 (>60); EGFR Non-African American 28.7 (>60)
[2018-10-29] MEDS: Mometasone/Formoter 200/5 MDI INH SCH ×2 (07:59→19:26)
[2018-10-29] MEDS: Insulin LISPRO* 1 UNITS UNIT SUBCUT SCH ×3 (08:53→17:01)
[2018-10-29] MEDS: Insulin GLARGINE(*) 1 UNITS UNIT SUBCUT SCH ×2 (08:53→20:20)
[2018-10-29] MEDS: Docusate CAP* 100 MG PO SCH ×2 (08:54→20:20)
[2018-10-29] MEDS: DOXYcycline CAP(*) 100 MG PO SCH ×2 (08:54→20:20)
[2018-10-29] MEDS: Furosemide IV* 10 MG/ML VIAL (40 MG) IV SCH ×2 (08:54→15:53)
[2018-10-29] MEDS: predniSONE TAB* 20 MG PO SCH (08:54)
[2018-10-29] MEDS: Metoprolol Succinate XL TAB* 25 MG PO SCH ×2 (08:54→20:20)
[2018-10-29] MEDS: Apixaban* 2.5 MG TAB PO SCH ×2 (08:54→20:19)
[2018-10-29] MEDS: Diltiazem CD CAP* 240 MG PO SCH (08:54)
[2018-10-29] MEDS ORDERED: Simethicone TAB* 80 MG TAB.CHEW PO PRN (09:45)
--- NOTE | 2018-10-29 15:01 | PN ---
Subjective Date of Service: 10/29/18 Interval History: Ms. Frias is feeling well today. She feels about the same as yesterday. She is up in the chair on my exam. Denies CP, SOB, N/V. Still feels bloated. She is interested in rehab, but does not want to go to [facility]. Family History: Unchanged from Admission Social History: Unchanged from Admission Past Medical History: Unchanged from Admission Objective Active Medications: Acetaminophen (Tylenol Tab*) 650 mg PO Q6H PRN pain/fever Apixaban (Eliquis*) 2.5 mg PO BID RUBY Dextrose (D50w Syringe 50 Ml*) 12.5 gm IV PUSH .FOR FS < 60 - SS PRN FS < 60 Diltiazem HCl (Cardizem Cd Cap*) 240 mg PO DAILY RUBY Docusate Sodium (Colace Cap*) 100 mg PO BID RUBY Doxycycline Hyclate (Vibramycin Cap(*)) 100 mg PO BID RUBY Furosemide (Lasix Iv*) 40 mg IV 0800,1700 RUBY Piperacillin Sod/Tazobactam (Sod 3.375 gm/ Sodium Chloride) 100 mls @ 25 mls/ hr IVPB Q12H RUBY Insulin Glargine (Lantus(*)) 38 units SUBCUT Q12H RUBY Insulin Human Lispro (Humalog*) 0 units SUBCUT AC RUBY; Protocol Ipratropium [place] (Atrovent 0.5 Mg Neb.Kim*) 0.5 mg INH [id number] AWAKE RUBY Levalbuterol HCl (Xopenex 0.63mg/3ml Neb*) 0.63 mg INH [id number] AWAKE RUBY Metoprolol Succinate (Toprol Xl Tab*) 25 mg PO BID RUBY Mometasone Furoate/Formoterol Fumar (Dulera 200/5 Mdi*) 2 puff INH BID RUBY Polyethylene Glycol/Electrolytes (Miralax*) 17 gm PO DAILY PRN CONSTIPATION Prednisone (Deltasone Tab*) 40 mg PO DAILY RUBY Simethicone (Mylicon Tab*) 80 mg PO Q6H PRN INDIGESTION Vital Signs - 8 hr 10/29/18 10/29/18 10/29/18 07:08 08:00 08:03 Temperature 96.4 F Pulse Rate 78 74 Respiratory 20 20 20 Rate Blood Pressure 123/58 (mmHg) O2 Sat by Pulse 97 97 Oximetry 10/29/18 13:09 Temperature Pulse Rate 94 Respiratory 20 Rate Blood Pressure (mmHg) O2 Sat by Pulse 95 Oximetry Oxygen Devices in Use Now: Nasal Cannula - 2L Appearance: Elderly female sitting in chair in NAD Eyes: No Scleral Icterus Ears/Nose/Mouth/Throat: Mucous Membranes Moist Neck: NL Appearance and Movements; NL JVP, Trachea Midline Respiratory: Symmetrical Chest Expansion and Respiratory Effort, - - Fine crackles to bilat bases, otherwise diminished Cardiovascular: NL Sounds; No Murmurs; No JVD, RRR Abdominal: NL Sounds; No Tenderness; No Distention Extremities: - - +2 generalized pitting Neurological: - - Oriented to self and place Lines/Tubes/Other Access: Clean, Dry and Intact Cruz, Clean, Dry and Intact Peripheral IV Nutrition: Taking PO's Result Diagrams: 10/29/18 04:49 10/29/18 04:49 Assess/Plan/Problems-Billing Assessment: Ms. Frias is an 88 yo female with PMH of NIDDM (recently much worse control, A1C 11.4), Afib(on eliquis), HTN, anxiety, morbid obesity and likely some obesity hypoventilation syndrome, CKD stage 3 p/w with increasing fatigue, fall , poor po intake. Fevers, leukocytosis, tachypnea, tachycardia, anion gap. Sepsis thought secondary to Ecoli UTI and later on lateral view CXR showing left basilar/lingular consolidation worrisome for pneumonia(also had recent doxy course 2 weeks prior). Acute hypoxic respiratory failure. Course complicated by Afib with RVR. CFTX (3d) -> Zosyn + doxy. - Patient Problems (1) Acute diastolic CHF (congestive heart failure) Code(s): I50.31 - ACUTE DIASTOLIC (CONGESTIVE) HEART FAILURE Comment: - Strict I&O, daily weights - BNP 276 on admission, now down to 196 - One dose IV furosemide on 10/25, but further diuresis was held d/t bump in creatinine - Start BID fursemide and continue to trend BMP for renal function (2) Pneumonia Code(s): J18.9 - PNEUMONIA, UNSPECIFIED ORGANISM Comment: - Seen on CxR on 10/26 - Negative strep pneumo and legionella urine antigens - Continue Zosyn, doxy (3) Acute respiratory failure with hypoxia Code(s): J96.01 - ACUTE RESPIRATORY FAILURE WITH HYPOXIA Comment: - Secondary to pneumonia, obesity hypoventilation syndrome - Continues to require 2L NC - Elevated ddimer, but no evidence of PE or DVT on imaging - Will likely repeat CxR tomorrow - Continue nebs, Dulera, prednisone (4) E-coli UTI Code(s): N39.0 - URINARY TRACT INFECTION, SITE NOT SPECIFIED; B96.20 - UNSP ESCHERICHIA COLI THE CAUSE OF DISEASES CLASSD ELSWHR Comment: - Urine culture growing >100k colonies of E. coli - Continue Zosyn (5) JIGNA (acute kidney injury) Code(s): N17.9 - ACUTE KIDNEY FAILURE, UNSPECIFIED Comment: - Secondary to fluid volume excess, diuretic use; FENa indicates prerenal source - CKD stage 3 at baseline - Creatinine now back at baseline (approx 1.6) (6) Sepsis Comment: - Resolved - Secondary to UTI, pneumonia - Met sepsis criteria on admission with leukocytosis, tachypnea, tachycardia, fever; met qSOFA criteria with tachypnea - No growth on blood cultures - Plan as above (7) Rapid atrial fibrillation Code(s): I48.91 - UNSPECIFIED ATRIAL FIBRILLATION Comment: - Now resolved; still in afib, but rate controlled - Attempt to keep magnesium >2, potassium >4 - Continue Eliquis (renal dosing), diltiazem, metoprolol (8) Diabetes mellitus, type 2 Comment: - Uncontrolled, A1c 11.4% - Hold metformin, Januvia, Trulicity - Continue Lantus, Lispro SS (9) Hypertension Code(s): I10 - ESSENTIAL (PRIMARY) HYPERTENSION Comment: - Normotensive, SBP 120-130s - Hold lisinopril, losartan; unclear why she was on both of these prior to admission - Continue metoprolol, diltiazem (10) Morbid obesity Code(s): E66.01 - MORBID (SEVERE) OBESITY DUE TO EXCESS CALORIES Comment: - BMI 42 - Supportive care (11) DVT prophylaxis Comment: - Eliquis (12) Full code status Code(s): Z78.9 - OTHER SPECIFIED HEALTH STATUS Comment: Status and Disposition: Inpatient. Anticipate will need another 24-48hr for diuresis. Attending: Jama Warren
[2018-10-29] MEDS: Magnesium Oxide TAB* 400 MG PO SCH (20:20)
[2018-10-30] MEDS: Ipratropium 0.5MG/2.5ML NEB* 0.5 MG/2.5 ML NEB.SOLN INH SCH ×4 (01:37→19:26)
[2018-10-30] MEDS: Levalbuterol 0.63MG/3ML NEB* UNIT OF USE INH SCH ×4 (01:37→19:26)
[2018-10-30] MEDS: ZOSYN 3.375 GM Q12H per EXTENDED INFUSION IVPB SCH ×4 (03:42→16:40)
[2018-10-30 07:44] LABS: Hematocrit 32 % (35-47); Mean Corpuscular HGB Conc 32 g/dl (31-36); Mean Corpuscular Hemoglobin 28 pg (27-31); Mean Corpuscular Volume 89 fL (80-97); Mean Platelet Volume 8.6 fL (7.4-10.4); Platelet Count 514 10^3/ul (150-450); Red Blood Count 3.56 10^6/ul (4.00-5.40); Red Cell Distribution Width 16 % (10.5-15); White Blood Count 15.8 10^3/ul (3.5-10.8)
[2018-10-30] MEDS: Mometasone/Formoter 200/5 MDI INH SCH ×2 (07:50→19:27)
[2018-10-30 08:00] LABS: ABS Basophils 0 10^3/ul (0-0.2); ABS Eosinophils 0.2 10^3/ul (0-0.6); ABS Lymphocytes 1.3 10^3/ul (1.0-4.8); ABS Monocytes 1.2 10^3/ul (0-0.8); ABS Neutrophils 13.2 10^3/ul (1.5-7.7); ABS Nucleated RBC 0 10^3/ul; Nucleated Red Blood Cells % 0
[2018-10-30 08:02] LABS: BUN/Creatinine Ratio 37.4 (8-20); Calcium 8.4 mg/dL (8.6-10.3); EGFR African American 36.2 (>60); EGFR Non-African American 29.9 (>60); Magnesium 1.6 mg/dL (1.9-2.7); Potassium 3.8 mmol/L (3.5-5.0)
[2018-10-30 08:35] LABS: Eosinophil % 1.1 %
[2018-10-30] MEDS ORDERED: Metolazone TAB* 5 MG PO ONE (09:08)
[2018-10-30] MEDS: Insulin GLARGINE(*) 1 UNITS UNIT SUBCUT SCH ×2 (10:02→20:00)
[2018-10-30] MEDS: Insulin LISPRO* 1 UNITS UNIT SUBCUT SCH ×3 (10:02→17:11)
[2018-10-30] MEDS: DOXYcycline CAP(*) 100 MG PO SCH ×2 (10:04→19:47)
[2018-10-30] MEDS: Magnesium Oxide TAB* 400 MG PO SCH ×2 (10:04→19:46)
[2018-10-30] MEDS: Diltiazem CD CAP* 240 MG PO SCH (10:04)
[2018-10-30] MEDS: Metoprolol Succinate XL TAB* 25 MG PO SCH ×2 (10:04→19:46)
[2018-10-30] MEDS: predniSONE TAB* 20 MG PO SCH (10:04)
[2018-10-30] MEDS: Apixaban* 2.5 MG TAB PO SCH ×2 (10:05→19:47)
[2018-10-30] MEDS: Atorvastatin* 10 MG TAB PO SCH (10:05)
[2018-10-30] MEDS: Docusate CAP* 100 MG PO SCH ×2 (10:05→19:47)
[2018-10-30] MEDS: Furosemide IV* 10 MG/ML VIAL (40 MG) IV SCH ×2 (10:51→16:40)
--- NOTE | 2018-10-30 11:01 | PN ---
Subjective Date of Service: 10/30/18 Interval History: Ms. Frias is feeling better today. She denies any SOB. She was coughing when I walked into the room, but states that she has typically not been coughing. Aide at bedside disputes this and reports she has been coughing somewhat frequently. Aide also reports she likes to rest in a laying position and does not like sitting up. The patient denies any increased SOB when laying. She feels as though she is improving and had a large amount of urine output yesterday. She denies CP, N/V. Family History: Unchanged from Admission Social History: Unchanged from Admission Past Medical History: Unchanged from Admission Objective Active Medications: Acetaminophen (Tylenol Tab*) 650 mg PO Q6H PRN pain/fever Apixaban (Eliquis*) 2.5 mg PO BID RUBY Atorvastatin Calcium (Lipitor*) 10 mg PO DAILY [facility] Dextrose (D50w Syringe 50 Ml*) 12.5 gm IV PUSH .FOR FS < 60 - SS PRN FS < 60 Diltiazem HCl (Cardizem Cd Cap*) 240 mg PO DAILY RUBY Docusate Sodium (Colace Cap*) 100 mg PO BID RUBY Doxycycline Hyclate (Vibramycin Cap(*)) 100 mg PO BID RUBY Furosemide (Lasix Iv*) 40 mg IV 0800,1700 RUBY Piperacillin Sod/Tazobactam (Sod 3.375 gm/ Sodium Chloride) 100 mls @ 25 mls/ hr IVPB Q12H [facility] Insulin Glargine (Lantus(*)) 42 units SUBCUT Q12H RUBY Insulin Human Lispro (Humalog*) 0 units SUBCUT AC RUBY; Protocol Ipratropium [place] (Atrovent 0.5 Mg Neb.Kim*) 0.5 mg INH [id number] AWAKE RUBY Levalbuterol HCl (Xopenex 0.63mg/3ml Neb*) 0.63 mg INH [id number] AWAKE RUBY Magnesium Oxide (Magox 400 Tab*) 400 mg PO BID RUBY Metoprolol Succinate (Toprol Xl Tab*) 25 mg PO BID RUBY Mometasone Furoate/Formoterol Fumar (Dulera 200/5 Mdi*) 2 puff INH BID RUBY Pharmacy Consult (Zosyn Per Pharmacy*) 1 note FOLLOW UP .ZOSYN PER PHARMACY RUBY Polyethylene Glycol/Electrolytes (Miralax*) 17 gm PO DAILY PRN CONSTIPATION Prednisone (Deltasone Tab*) 40 mg PO DAILY [facility] Simethicone (Mylicon Tab*) 80 mg PO Q6H PRN INDIGESTION Vital Signs - 8 hr 10/30/18 10/30/18 10/30/18 04:20 07:14 07:42 Temperature 98.4 F 97.3 F Pulse Rate 79 107 Respiratory 16 18 20 Rate Blood Pressure 159/69 138/79 (mmHg) O2 Sat by Pulse 96 96 Oximetry Oxygen Devices in Use Now: Nasal Cannula - 2.5L Appearance: Elderly female laying in bed in NAD Eyes: No Scleral Icterus Ears/Nose/Mouth/Throat: Mucous Membranes Moist Neck: NL Appearance and Movements; NL JVP, Trachea Midline Respiratory: Symmetrical Chest Expansion and Respiratory Effort, Clear to Auscultation Cardiovascular: NL Sounds; No Murmurs; No JVD, RRR Abdominal: - - Distended, slightly tender to palpation Extremities: - - +2 pitting, generalized Neurological: - - Oriented to self and place Lines/Tubes/Other Access: Clean, Dry and Intact Cruz, Clean, Dry and Intact Peripheral IV Nutrition: Taking PO's Result Diagrams: 10/30/18 07:31 10/30/18 07:31 Assess/Plan/Problems-Billing Assessment: Ms. Frias is an 88 yo female with PMH of NIDDM (recently much worse control, A1C 11.4), Afib(on eliquis), HTN, anxiety, morbid obesity, obesity hypoventilation syndrome, CKD stage 3; p/w with increasing fatigue, fall, poor po intake, fevers, leukocytosis, tachypnea, tachycardia, anion gap and found to have sepsis, secondary to UTI and pneumonia leading to acute hypoxic respiratory failure. Course complicated by Afib with RVR. - Patient Problems (1) Acute diastolic CHF (congestive heart failure) Code(s): I50.31 - ACUTE DIASTOLIC (CONGESTIVE) HEART FAILURE Comment: - Strict I&O, daily weights - BNP 276 on admission, now down to 196 - Still up approx 15lb since admission - One dose IV furosemide on 10/25, but diuresis was held d/t bump in creatinine; resumed diuresis on 10/28 - Cruz for output monitoring - Continue furosemide; add metolazone (2) Pneumonia Code(s): J18.9 - PNEUMONIA, UNSPECIFIED ORGANISM Comment: - Seen on CxR on 10/26 - Negative strep pneumo and legionella urine antigens - Continue doxy (day 12/25); change Zosyn to ceftriaxone (3) Acute respiratory failure with hypoxia Code(s): J96.01 - ACUTE RESPIRATORY FAILURE WITH HYPOXIA Comment: - Secondary to pneumonia, obesity hypoventilation syndrome - Continues to require 2.5L NC - Elevated ddimer, but no evidence of PE or DVT on imaging - Repeat CXR today - Continue nebs, Dulera, prednisone (decreased to 30mg) (4) E-coli UTI Code(s): N39.0 - URINARY TRACT INFECTION, SITE NOT SPECIFIED; B96.20 - UNSP ESCHERICHIA COLI THE CAUSE OF DISEASES CLASSD ELSWHR Comment: - Urine culture growing >100k colonies of E. coli - Change Zosyn to ceftriaxone (day 01/24) (5) JIGNA (acute kidney injury) Code(s): N17.9 - ACUTE KIDNEY FAILURE, UNSPECIFIED Comment: - Secondary to fluid volume excess, diuretic use; FENa indicates prerenal source - CKD stage 3 at baseline - Creatinine now back at baseline (approx 1.6), but will continue to trend d/t diuresis (6) Sepsis Comment: - Resolved - Secondary to UTI, pneumonia - Met sepsis criteria on admission with leukocytosis, tachypnea, tachycardia, fever; met qSOFA criteria with tachypnea - No growth on blood cultures - Plan as above (7) Rapid atrial fibrillation Code(s): I48.91 - UNSPECIFIED ATRIAL FIBRILLATION Comment: - Now resolved; still in afib, but rate controlled - Attempt to keep magnesium >2, potassium >4 - Continue Eliquis (renal dosing), diltiazem, metoprolol (8) Diabetes mellitus, type 2 Comment: - Uncontrolled, A1c 11.4% - Hold metformin, Januvia, Trulicity - Continue Lantus (dose increased), Lispro SS (9) Hypertension Current Visit: Yes Status: Acute Code(s): I10 - ESSENTIAL (PRIMARY) HYPERTENSION SNOMED Code(s): 21744486 Comment: - Slightly hypertensive, SBP 120-130s - Hold losartan; unclear why she was on both an BRIANA and ARB these prior to admission - Continue metoprolol, diltiazem; resume lisinopril (10) Morbid obesity Code(s): E66.01 - MORBID (SEVERE) OBESITY DUE TO EXCESS CALORIES Comment: - BMI 42 - Supportive care (11) DVT prophylaxis Comment: - Eliquis (12) Full code status Code(s): Z78.9 - OTHER SPECIFIED HEALTH STATUS Comment: Status and Disposition: Inpatient. Anticipate will need another 48-72h for diuresis. Attending: Jama Warren
[2018-10-30] MEDS ORDERED: Potassium Chlor TAB* 20 MEQ TAB.ER PO ONE (11:06)
[2018-10-30] MEDS ORDERED: Insulin GLARGINE(*) 1 UNITS UNIT SUBCUT SCH (11:08)
[2018-10-30] MEDS: cefTRIAXone(*) 1 GM in NS 0.9% 50 ML* 50 ML IVPB SCH ×3 (21:46→21:48)
[2018-10-31] MEDS: Ipratropium 0.5MG/2.5ML NEB* 0.5 MG/2.5 ML NEB.SOLN INH SCH ×2 (01:28→07:08)
[2018-10-31] MEDS: Levalbuterol 0.63MG/3ML NEB* UNIT OF USE INH SCH ×2 (01:28→07:08)
[2018-10-31 05:22] LABS: Hematocrit 33 % (35-47); Hemoglobin 10.6 g/dl (12.0-16.0); Mean Corpuscular HGB Conc 32 g/dl (31-36); Mean Corpuscular Hemoglobin 28 pg (27-31); Mean Corpuscular Volume 87 fL (80-97); Mean Platelet Volume 8.5 fL (7.4-10.4); Platelet Count 555 10^3/ul (150-450); Red Blood Count 3.81 10^6/ul (4.00-5.40); Red Cell Distribution Width 16 % (10.5-15); White Blood Count 14.9 10^3/ul (3.5-10.8)
[2018-10-31 06:02] LABS: Calcium 9.1 mg/dL (8.6-10.3); Magnesium 1.6 mg/dL (1.9-2.7); Potassium 3.9 mmol/L (3.5-5.0)
[2018-10-31 06:08] LABS: BUN/Creatinine Ratio 40.1 (8-20); EGFR African American 36.5 (>60); EGFR Non-African American 30.1 (>60)
[2018-10-31 06:38] LABS: ABS Basophils 0.1 10^3/ul (0-0.2); ABS Eosinophils 0 10^3/ul (0-0.6); ABS Lymphocytes 1.5 10^3/ul (1.0-4.8); ABS Monocytes 1.2 10^3/ul (0-0.8); ABS Neutrophils 12.2 10^3/ul (1.5-7.7); ABS Nucleated RBC 0 10^3/ul; Eosinophil % 0.1 %; Nucleated Red Blood Cells % 0
[2018-10-31] MEDS: Mometasone/Formoter 200/5 MDI INH SCH ×2 (07:08→19:54)
[2018-10-31] MEDS ORDERED: Ipratropium 0.5MG/2.5ML NEB* 0.5 MG/2.5 ML NEB.SOLN INH PRN (07:18)
[2018-10-31] MEDS ORDERED: Levalbuterol 0.63MG/3ML NEB* UNIT OF USE INH PRN (07:19)
[2018-10-31] MEDS: Insulin LISPRO* 1 UNITS UNIT SUBCUT SCH ×3 (09:57→18:14)
[2018-10-31] MEDS: Insulin GLARGINE(*) 1 UNITS UNIT SUBCUT SCH ×2 (09:58→21:02)
[2018-10-31] MEDS: Furosemide IV* 10 MG/ML VIAL (40 MG) IV SCH ×2 (09:58→18:14)
[2018-10-31] MEDS: Docusate CAP* 100 MG PO SCH ×2 (09:59→21:02)
[2018-10-31] MEDS: predniSONE TAB* 10 MG PO SCH (09:59)
[2018-10-31] MEDS: Magnesium Oxide TAB* 400 MG PO SCH ×2 (09:59→21:02)
[2018-10-31] MEDS: Atorvastatin* 10 MG TAB PO SCH (09:59)
[2018-10-31] MEDS: Lisinopril TAB* 5 MG PO SCH (10:00)
[2018-10-31] MEDS: Apixaban* 2.5 MG TAB PO SCH ×2 (10:00→21:02)
[2018-10-31] MEDS: DOXYcycline CAP(*) 100 MG PO SCH ×2 (10:00→21:02)
[2018-10-31] MEDS: Diltiazem CD CAP* 240 MG PO SCH (10:00)
[2018-10-31] MEDS: Metoprolol Succinate XL TAB* 25 MG PO SCH ×2 (10:00→21:02)
[2018-10-31] MEDS ORDERED: Glycerin ADULT SUPP PR ONE (10:29)
--- NOTE | 2018-10-31 15:47 | PN ---
Subjective Date of Service: 10/31/18 Interval History: Patient seen and examined. No acute overnight events. Patient appears labored but states she feels her breathing is improving. Denies cough, denies acute SOB , no fevers chill or chest pain. States she ambulated with PT today and felt "ok ". Family History: Unchanged from Admission Social History: Unchanged from Admission Past Medical History: Unchanged from Admission Objective Active Medications: Acetaminophen (Tylenol Tab*) 650 mg PO Q6H PRN PRN Reason: pain/fever Last Admin: 10/28/18 04:48 Dose: 650 mg Apixaban (Eliquis*) 2.5 mg PO BID [facility] Last Admin: 10/31/18 10:00 Dose: 2.5 mg Atorvastatin Calcium (Lipitor*) 10 mg PO DAILY [facility] Last Admin: 10/31/18 09:59 Dose: 10 mg Dextrose (D50w Syringe 50 Ml*) 12.5 gm IV PUSH .FOR FS < 60 - SS PRN PRN Reason: FS < 60 Diltiazem HCl (Cardizem Cd Cap*) 240 mg PO DAILY [facility] Last Admin: 10/31/18 10:00 Dose: 240 mg Docusate Sodium (Colace Cap*) 100 mg PO BID [facility] Last Admin: 10/31/18 09:59 Dose: 100 mg Doxycycline Hyclate (Vibramycin Cap(*)) 100 mg PO BID [facility] Last Admin: 10/31/18 10:00 Dose: 100 mg Furosemide (Lasix Iv*) 40 mg IV 0800,1700 [facility] Last Admin: 10/31/18 09:58 Dose: 40 mg Ceftriaxone Sodium 1 gm/ (Sodium Chloride) 50 mls @ 200 mls/hr IVPB 2130 [facility] Last Admin: 10/30/18 21:48 Dose: 200 mls/hr Insulin Glargine (Lantus(*)) 45 units SUBCUT Q12H [facility] Last Admin: 10/31/18 09:58 Dose: 45 units Insulin Human Lispro (Humalog*) 0 units SUBCUT AC [facility] [place]; Protocol Last Admin: 10/31/18 12:24 Dose: 3 unit Ipratropium [place] (Atrovent 0.5 Mg Neb.Kim*) 0.5 mg INH Q4H PRN PRN Reason: SOB/WHEEZING Levalbuterol HCl (Xopenex 0.63mg/3ml Neb*) 0.63 mg INH Q4H PRN PRN Reason: SOB/WHEEZING Lisinopril (Prinivil Tab*) 2.5 mg PO DAILY [facility] [place] Last Admin: 10/31/18 10:00 Dose: 2.5 mg Magnesium Oxide (Magox 400 Tab*) 400 mg PO BID [facility] [place] Last Admin: 10/31/18 09:59 Dose: 400 mg Metoprolol Succinate (Toprol Xl Tab*) 25 mg PO BID [facility] [place] Last Admin: 10/31/18 10:00 Dose: 25 mg Mometasone Furoate/Formoterol Fumar (Dulera 200/5 Mdi*) 2 puff INH BID [facility] Last Admin: 10/31/18 07:08 Dose: 2 puff Pharmacy Consult (Zosyn Per Pharmacy*) 1 note FOLLOW UP .ZOSYN PER PHARMACY [facility] Polyethylene Glycol/Electrolytes (Miralax*) 17 gm PO DAILY PRN PRN Reason: CONSTIPATION Last Admin: 10/27/18 22:46 Dose: 17 gm Prednisone (Deltasone Tab*) 30 mg PO DAILY [facility] Last Admin: 10/31/18 09:59 Dose: 30 mg Simethicone (Mylicon Tab*) 80 mg PO Q6H PRN PRN Reason: INDIGESTION Last Admin: 10/29/18 11:30 Dose: 80 mg Vital Signs - 8 hr 10/31/18 10/31/18 08:00 09:56 Pulse Rate 100 Respiratory 22 Rate Blood Pressure 143/69 (mmHg) Oxygen Devices in Use Now: Nasal Cannula Appearance: alert, ill-appearing Eyes: PERRLA Ears/Nose/Mouth/Throat: - - dry oral mucosa Neck: NL Appearance and Movements; NL JVP Respiratory: - - diminished throughout lung vieira with shallow resps, no wheeze , bilateral rales noted Cardiovascular: NL Sounds; No Murmurs; No JVD, - - irregular/afib on tele rate controlled Abdominal: NL Sounds; No Tenderness; No Distention Extremities: No Clubbing, Cyanosis, - - bi pedal edema Neurological: Alert and Oriented x 3 Nutrition: Taking PO's Result Diagrams: 10/31/18 05:13 10/31/18 05:13 Additional Lab and Data: Laboratory Results - last 24 hr 10/25/18 10/25/18 10/25/18 11:19 11:35 16:36 WBC RBC Hgb Hct MCV MCH MCHC RDW Plt Count MPV Neut % (Auto) Lymph % (Auto) [place]ickey % (Auto) Eos % (Auto) Baso % (Auto) Absolute Neuts (auto) Absolute Lymphs (auto) Absolute Monos (auto) Absolute Eos (auto) Absolute Basos (auto) Absolute Nucleated RBC Nucleated RBC % Sodium Potassium Chloride Carbon Dioxide Anion Gap BUN Creatinine Est GFR ( Amer) Est GFR (Non-Af Amer) BUN/Creatinine Ratio Glucose POC Glucose (mg/dL) > 444 H* 408 H* Glucose Meter Confirm 435 H Calcium Magnesium 10/25/18 10/25/18 10/26/18 16:53 17:57 05:05 WBC RBC Hgb Hct MCV MCH MCHC RDW Plt Count MPV Neut % (Auto) Lymph % (Auto) Dickey % (Auto) Eos % (Auto) Baso % (Auto) Absolute Neuts (auto) Absolute Lymphs (auto) Absolute Monos (auto) Absolute Eos (auto) Absolute Basos (auto) Absolute Nucleated RBC Nucleated RBC % Sodium 129 L Potassium 4.1 Chloride 99 L Carbon Dioxide 24 Anion Gap 6 BUN 54 H Creatinine 1.87 H Est GFR ( Amer) 30.9 Est GFR (Non-Af Amer) 25.5 BUN/Creatinine Ratio 28.9 H Glucose 299 H POC Glucose (mg/dL) 377 H Glucose Meter Confirm 370 H Calcium 8.2 L Magnesium 1.8 L 10/26/18 10/26/18 05:05 08:14 WBC 16.6 H RBC 3.58 L Hgb 10.0 L Hct 32 L MCV 89 MCH 28 MCHC 32 RDW 16 H Plt Count 406 MPV 8.7 Neut % (Auto) 83.7 Lymph % (Auto) 7.7 Dickey % (Auto) 7.2 Eos % (Auto) 0.9 Baso % (Auto) 0.5 Absolute Neuts (auto) 13.9 H Absolute Lymphs (auto) 1.3 Absolute Monos (auto) 1.2 H Absolute Eos (auto) 0.1 Absolute Basos (auto) 0.1 Absolute Nucleated RBC 0 Nucleated RBC % 0.1 Sodium Potassium Chloride Carbon Dioxide Anion Gap BUN Creatinine Est GFR ( Amer) Est GFR (Non-Af Amer) BUN/Creatinine Ratio Glucose POC Glucose (mg/dL) 296 H Glucose Meter Confirm Calcium Magnesium Microbiology and Other Data: Microbiology 10/23/18 15:29 Blood Venous Aerobic Blood Culture - Preliminary No Growth Day 2 10/23/18 15:29 Blood Venous Anaerobic Blood Culture - Preliminary No Growth Day 2 10/23/18 14:24 Blood Venous Aerobic Blood Culture - Preliminary No Growth Day 2 10/23/18 14:24 Blood Venous Anaerobic Blood Culture - Preliminary No Growth Day 2 10/23/18 13:45 Urine Urine Culture - Final Escherichia Coli 10/24/18 02:00 Nasal Nasal Screen MRSA (PCR) - Final Mrsa Not Detected 10/24/18 02:00 Nasal Influenza Types A,B Antigen - Final Specimen received for Influenza A/B Molecular testing Assess/Plan/Problems-Billing Assessment: Ms. Frias is an 88 yo female with PMH of NIDDM with A1C 11.4, Afib with RVR, HTN, anxiety, morbid obesity, obesity hypoventilation syndrome, CKD stage 3; p/ with increasing fatigue and respiratory failure 2/2 UTI and pneumonia with acute decompensation and multifactorial hypoxic respiratory failure - Patient Problems (1) Acute respiratory failure with hypoxia Code(s): J96.01 - ACUTE RESPIRATORY FAILURE WITH HYPOXIA SNOMED Code(s): 27446136 Comment: - Secondary to CAP and obesity hypoventilation syndrome - Continues to require 2.5L NC - Continue nebs, Dulera, prednisone (decreased to 30mg) and doxy BID - Repeat CXR as above, unchanged (2) JIGNA (acute kidney injury) Code(s): N17.9 - ACUTE KIDNEY FAILURE, UNSPECIFIED SNOMED Code(s): 50775777 Comment: - 2/2 diuretic use; FENa indicates prerenal source - CKD stage 3 at baseline (approx 1.6) - Continue to monitor renal function while continuing diuresis (3) Acute diastolic CHF (congestive heart failure) Code(s): I50.31 - ACUTE DIASTOLIC (CONGESTIVE) HEART FAILURE SNOMED Code(s): 165727874 Comment: - Strict I&O, daily weights - Negative fluid balance yesterday after metolazone - Continue concepcion, continue lasix and monitor renal function (4) Diabetes mellitus, type 2 Comment: - Uncontrolled, A1c 11.4% - Hold metformin, Januvia, Trulicity - Continue Lantus (dose increased), Lispro SS (5) E-coli UTI Code(s): N39.0 - URINARY TRACT INFECTION, SITE NOT SPECIFIED; B96.20 - UNSP ESCHERICHIA COLI THE CAUSE OF DISEASES CLASSD ELSWHR SNOMED Code(s): 351963190 Comment: - Changed to ceftriaxone, day 02/24 (6) Morbid obesity Current Visit: Yes Status: Acute Code(s): E66.01 - MORBID (SEVERE) OBESITY DUE TO EXCESS CALORIES SNOMED Code(s): 744841025 Comment: - BMI 42 - Supportive care (7) Pneumonia Code(s): J18.9 - PNEUMONIA, UNSPECIFIED ORGANISM SNOMED Code(s): 337305693 Comment: - Repeat CXR withno interval worsening - Negative strep pneumo and legionella urine antigens - Continue doxy (day 01/24) and ceftriaxone (8) Sepsis Comment: - Resolved - Blood cx NTD - Continue zosyn (9) Rapid atrial fibrillation Code(s): I48.91 - UNSPECIFIED ATRIAL FIBRILLATION SNOMED Code(s): 786634705 Comment: - Now resolved, rate controlled on tele - Goal magnesium >2, potassium >4, monitor and replete PRN - Continue Eliquis (renal dosing), diltiazem, metoprolol (10) DVT prophylaxis Code(s): OLG3259 - SNOMED Code(s): 258628399 Comment: - Eliquis (11) Full code status Code(s): Z78.9 - OTHER SPECIFIED HEALTH STATUS SNOMED Code(s): 702516371 Comment: Status and Disposition: Inpatient. Anticipate will need another 48-72h for diuresis. Dispo plan TBD.
[2018-10-31] MEDS: cefTRIAXone(*) 1 GM in NS 0.9% 50 ML* 50 ML IVPB SCH (21:28)
[2018-11-01] MEDS: Mometasone/Formoter 200/5 MDI INH SCH ×2 (07:23→20:20)
[2018-11-01] MEDS: Insulin LISPRO* 1 UNITS UNIT SUBCUT SCH ×3 (07:55→17:43)
[2018-11-01] MEDS: Furosemide IV* 10 MG/ML VIAL (40 MG) IV SCH (08:43)
[2018-11-01] MEDS: Atorvastatin* 10 MG TAB PO SCH (08:49)
[2018-11-01] MEDS: DOXYcycline CAP(*) 100 MG PO SCH ×2 (08:49→21:10)
[2018-11-01] MEDS: Docusate CAP* 100 MG PO SCH (08:49)
[2018-11-01] MEDS: predniSONE TAB* 10 MG PO SCH (08:49)
[2018-11-01] MEDS: Metoprolol Succinate XL TAB* 25 MG PO SCH ×2 (08:49→21:10)
[2018-11-01] MEDS: Magnesium Oxide TAB* 400 MG PO SCH ×2 (08:50→21:10)
[2018-11-01] MEDS: Lisinopril TAB* 5 MG PO SCH (08:50)
[2018-11-01] MEDS: Diltiazem CD CAP* 240 MG PO SCH (08:50)
[2018-11-01] MEDS: Apixaban* 2.5 MG TAB PO SCH ×2 (08:50→21:09)
[2018-11-01] MEDS: Insulin GLARGINE(*) 1 UNITS UNIT SUBCUT SCH ×2 (09:21→21:11)
--- NOTE | 2018-11-01 14:19 | PN ---
Subjective Date of Service: 11/01/18 Interval History: Patient seen and examined. Somewhat sleepy today, but appropriate. Afebrile, no acute SOB, no chest pain, working with PT. Family History: Unchanged from Admission Social History: Unchanged from Admission Past Medical History: Unchanged from Admission Objective Active Medications: Acetaminophen (Tylenol Tab*) 650 mg PO Q6H PRN PRN Reason: pain/fever Last Admin: 10/28/18 04:48 Dose: 650 mg Apixaban (Eliquis*) 2.5 mg PO BID [facility] Last Admin: 11/01/18 08:50 Dose: 2.5 mg Atorvastatin Calcium (Lipitor*) 10 mg PO DAILY [facility] Last Admin: 11/01/18 08:49 Dose: 10 mg Dextrose (D50w Syringe 50 Ml*) 12.5 gm IV PUSH .FOR FS < 60 - SS PRN PRN Reason: FS < 60 Diltiazem HCl (Cardizem Cd Cap*) 240 mg PO DAILY [facility] Last Admin: 11/01/18 08:50 Dose: 240 mg Docusate Sodium (Colace Cap*) 100 mg PO BID [facility] Last Admin: 11/01/18 08:49 Dose: 100 mg Doxycycline Hyclate (Vibramycin Cap(*)) 100 mg PO BID [facility] Last Admin: 11/01/18 08:49 Dose: 100 mg Furosemide (Lasix Iv*) 40 mg IV 0800,1700 [facility] Last Admin: 11/01/18 08:43 Dose: 40 mg Ceftriaxone Sodium 1 gm/ (Sodium Chloride) 50 mls @ 200 mls/hr IVPB 2130 [facility] Last Admin: 10/31/18 21:28 Dose: 200 mls/hr Insulin Glargine (Lantus(*)) 45 units SUBCUT Q12H [facility] Last Admin: 11/01/18 09:21 Dose: Not Given Insulin Human Lispro (Humalog*) 0 units SUBCUT AC [facility]; Protocol Last Admin: 11/01/18 12:37 Dose: 9 unit Ipratropium [place] (Atrovent 0.5 Mg Neb.Kim*) 0.5 mg INH Q4H PRN PRN Reason: SOB/WHEEZING Levalbuterol HCl (Xopenex 0.63mg/3ml Neb*) 0.63 mg INH Q4H PRN PRN Reason: SOB/WHEEZING Lisinopril (Prinivil Tab*) 2.5 mg PO DAILY [facility] Last Admin: 11/01/18 08:50 Dose: 2.5 mg Magnesium Oxide (Magox 400 Tab*) 400 mg PO BID [facility] Last Admin: 11/01/18 08:50 Dose: 400 mg Metoprolol Succinate (Toprol Xl Tab*) 25 mg PO BID [facility] Last Admin: 11/01/18 08:49 Dose: 25 mg Mometasone Furoate/Formoterol Fumar (Dulera 200/5 Mdi*) 2 puff INH BID [facility] Last Admin: 11/01/18 07:23 Dose: 2 puff Pharmacy Consult (Zosyn Per Pharmacy*) 1 note FOLLOW UP .ZOSYN PER PHARMACY [facility] Polyethylene Glycol/Electrolytes (Miralax*) 17 gm PO DAILY PRN PRN Reason: CONSTIPATION Last Admin: 10/27/18 22:46 Dose: 17 gm Prednisone (Deltasone Tab*) 30 mg PO DAILY [facility] Last Admin: 11/01/18 08:49 Dose: 30 mg Simethicone (Mylicon Tab*) 80 mg PO Q6H PRN PRN Reason: INDIGESTION Last Admin: 10/29/18 11:30 Dose: 80 mg Vital Signs - 8 hr 11/01/18 11/01/18 11/01/18 06:42 06:49 07:27 Temperature 98.1 F Pulse Rate 87 98 Respiratory 18 Rate Blood Pressure 145/86 (mmHg) O2 Sat by Pulse 97 97 Oximetry 11/01/18 11/01/18 08:00 10:41 Temperature 97.7 F Pulse Rate 93 Respiratory 18 18 Rate Blood Pressure 127/71 (mmHg) O2 Sat by Pulse 99 Oximetry Oxygen Devices in Use Now: Nasal Cannula Appearance: sleepy, NAD Eyes: No Scleral Icterus, PERRLA Ears/Nose/Mouth/Throat: Mucous Membranes Moist Neck: NL Appearance and Movements; NL JVP, Trachea Midline Respiratory: Symmetrical Chest Expansion and Respiratory Effort, Clear to Auscultation Cardiovascular: NL Sounds; No Murmurs; No JVD, RRR, No Edema Abdominal: NL Sounds; No Tenderness; No Distention Extremities: No Clubbing, Cyanosis Skin: No Rash or Ulcers, No Nodules or Sclerosis Neurological: Alert and Oriented x 3 Nutrition: Taking PO's Result Diagrams: 10/31/18 05:13 10/31/18 05:13 Additional Lab and Data: Laboratory Results - last 24 hr 10/25/18 10/25/18 10/25/18 11:19 11:35 16:36 WBC RBC Hgb Hct MCV MCH MCHC RDW Plt Count MPV Neut % (Auto) Lymph % (Auto) Desha % (Auto) Eos % (Auto) Baso % (Auto) Absolute Neuts (auto) Absolute Lymphs (auto) Absolute Monos (auto) Absolute Eos (auto) Absolute Basos (auto) Absolute Nucleated RBC Nucleated RBC % Sodium Potassium Chloride Carbon Dioxide Anion Gap BUN Creatinine Est GFR ( Amer) Est GFR (Non-Af Amer) BUN/Creatinine Ratio Glucose POC Glucose (mg/dL) > 444 H* 408 H* Glucose Meter Confirm 435 H Calcium Magnesium 10/25/18 10/25/18 10/26/18 16:53 17:57 05:05 WBC RBC Hgb Hct MCV MCH MCHC RDW Plt Count MPV Neut % (Auto) Lymph % (Auto) Desha % (Auto) Eos % (Auto) Baso % (Auto) Absolute Neuts (auto) Absolute Lymphs (auto) Absolute Monos (auto) Absolute Eos (auto) Absolute Basos (auto) Absolute Nucleated RBC Nucleated RBC % Sodium 129 L Potassium 4.1 Chloride 99 L Carbon Dioxide 24 Anion Gap 6 BUN 54 H Creatinine 1.87 H Est GFR ( Amer) 30.9 Est GFR (Non-Af Amer) 25.5 BUN/Creatinine Ratio 28.9 H Glucose 299 H POC Glucose (mg/dL) 377 H Glucose Meter Confirm 370 H Calcium 8.2 L Magnesium 1.8 L 10/26/18 10/26/18 05:05 08:14 WBC 16.6 H RBC 3.58 L Hgb 10.0 L Hct 32 L MCV 89 MCH 28 MCHC 32 RDW 16 H Plt Count 406 MPV 8.7 Neut % (Auto) 83.7 Lymph % (Auto) 7.7 Desha % (Auto) 7.2 Eos % (Auto) 0.9 Baso % (Auto) 0.5 Absolute Neuts (auto) 13.9 H Absolute Lymphs (auto) 1.3 Absolute Monos (auto) 1.2 H Absolute Eos (auto) 0.1 Absolute Basos (auto) 0.1 Absolute Nucleated RBC 0 Nucleated RBC % 0.1 Sodium Potassium Chloride Carbon Dioxide Anion Gap BUN Creatinine Est GFR ( Amer) Est GFR (Non-Af Amer) BUN/Creatinine Ratio Glucose POC Glucose (mg/dL) 296 H Glucose Meter Confirm Calcium Magnesium Microbiology and Other Data: Microbiology 10/23/18 15:29 Blood Venous Aerobic Blood Culture - Preliminary No Growth Day 2 10/23/18 15:29 Blood Venous Anaerobic Blood Culture - Preliminary No Growth Day 2 10/23/18 14:24 Blood Venous Aerobic Blood Culture - Preliminary No Growth Day 2 10/23/18 14:24 Blood Venous Anaerobic Blood Culture - Preliminary No Growth Day 2 10/23/18 13:45 Urine Urine Culture - Final Escherichia Coli 10/24/18 02:00 Nasal Nasal Screen MRSA (PCR) - Final Mrsa Not Detected 10/24/18 02:00 Nasal Influenza Types A,B Antigen - Final Specimen received for Influenza A/B Molecular testing Assess/Plan/Problems-Billing Assessment: Ms. Frias is an 88 yo female with PMH of NIDDM with A1C 11.4, Afib with RVR, HTN, anxiety, morbid obesity, obesity hypoventilation syndrome, CKD stage 3; p/ with increasing fatigue and respiratory failure 2/2 UTI and pneumonia with acute decompensation and multifactorial hypoxic respiratory failure - Patient Problems (1) Acute respiratory failure with hypoxia Code(s): J96.01 - ACUTE RESPIRATORY FAILURE WITH HYPOXIA SNOMED Code(s): 77507988 Comment: - Secondary to CAP and obesity hypoventilation syndrome - Has had continuous antibiotics since 10/24, remains afebrile, DC all atbx today - Reduce O2 to 1.5L and keep sat >92% - Continue nebs, Dulera, prednisone (decreased to 30mg) - Repeat CXR as above, unchanged (2) JIGNA (acute kidney injury) Code(s): N17.9 - ACUTE KIDNEY FAILURE, UNSPECIFIED SNOMED Code(s): 06899924 Comment: - 2/2 diuretic use; FENa indicates prerenal source - CKD stage 3 at baseline (approx 1.6) - Continue to monitor renal function while continuing diuresis (3) Acute diastolic CHF (congestive heart failure) Code(s): I50.31 - ACUTE DIASTOLIC (CONGESTIVE) HEART FAILURE SNOMED Code(s): 236461943 Comment: - Strict I&O, daily weights - Remains at negative fluid balance with 11lb weight loss since admission - Continue concepcion, continue lasix and monitor renal function (4) Diabetes mellitus, type 2 Comment: - Uncontrolled, A1c 11.4% with somewhat labile sugars - Hold metformin, Januvia, Trulicity - Continue Lantus (dose increased), Lispro SS - Transition back to home meds for DC (5) E-coli UTI Code(s): N39.0 - URINARY TRACT INFECTION, SITE NOT SPECIFIED; B96.20 - UNSP ESCHERICHIA COLI THE CAUSE OF DISEASES CLASSD ELSR SNOMED Code(s): 681193093 Comment: - Last dose ceftriaxone today (6) Morbid obesity Current Visit: Yes Status: Acute Code(s): E66.01 - MORBID (SEVERE) OBESITY DUE TO EXCESS CALORIES SNOMED Code(s): 992155869 Comment: - BMI 41 - Supportive care (7) Pneumonia Code(s): J18.9 - PNEUMONIA, UNSPECIFIED ORGANISM SNOMED Code(s): 138069934 Comment: - Repeat CXR with no interval worsening on 10/31 - Negative strep pneumo and legionella urine antigens - DC antibiotics today (8) Sepsis Comment: - Resolved - Blood cx NTD - Continue zosyn (9) Rapid atrial fibrillation Code(s): I48.91 - UNSPECIFIED ATRIAL FIBRILLATION SNOMED Code(s): 328688110 Comment: - Now resolved, rate controlled on tele - Goal magnesium >2, potassium >4, monitor and replete PRN - Continue Eliquis (renal dosing), diltiazem, metoprolol (10) DVT prophylaxis Code(s): UML6379 - SNOMED Code(s): 853173083 Comment: - Eliquis (11) Full code status Code(s): Z78.9 - OTHER SPECIFIED HEALTH STATUS SNOMED Code(s): 872646002 Comment: Status and Disposition: Inpatient. DC planning for STR tomorrow.
[2018-11-02] MEDS: Mometasone/Formoter 200/5 MDI INH SCH ×2 (08:28→20:07)
[2018-11-02] MEDS: Insulin LISPRO* 1 UNITS UNIT SUBCUT SCH ×3 (09:01→16:54)
[2018-11-02] MEDS: Apixaban* 2.5 MG TAB PO SCH ×2 (09:01→21:00)
[2018-11-02] MEDS: predniSONE TAB* 10 MG PO SCH (09:01)
[2018-11-02] MEDS: Diltiazem CD CAP* 240 MG PO SCH (09:01)
[2018-11-02] MEDS: Insulin GLARGINE(*) 1 UNITS UNIT SUBCUT SCH ×2 (09:01→20:59)
[2018-11-02] MEDS: Magnesium Oxide TAB* 400 MG PO SCH ×2 (09:02→21:00)
[2018-11-02] MEDS: DOXYcycline CAP(*) 100 MG PO SCH (09:02)
[2018-11-02] MEDS: Lisinopril TAB* 5 MG PO SCH (09:02)
[2018-11-02] MEDS: Atorvastatin* 10 MG TAB PO SCH (09:02)
[2018-11-02] MEDS: Metoprolol Succinate XL TAB* 25 MG PO SCH ×2 (09:02→21:00)
--- NOTE | 2018-11-02 14:11 | DS ---
CC: [facility] * DATE OF ADMISSION: 10/23/2018. DATE OF DISCHARGE: 11/02/2018. MY ATTENDING PHYSICIAN FOR TODAY: Dr. Ronny Craig * (dictated by Sin Sanz, DEBORAH). PRIMARY CARE PHYSICIAN: Was Dr. Vance Jensen. HOSPITAL COURSE: Please refer to admission history and physical dated 2018. In short, this is an 88-year-old female who presented to the emergency department with a past medical history of noninsulin dependent diabetes mellitus , A-fib on Eliquis, hypertension, anxiety, morbid obesity, obesity hypoventilation syndrome, stage 3 CKD, history of falls, and poor p.o. intake, along with fevers, leukocytosis, tachypnea, and tachycardia. Again, in short, the patient was admitted for all these advancing symptoms. It was determined she did have pneumonia and a urinary tract infection. These all resulted in sepsis and acute hypoxic respiratory failure. Her course was also complicated by a run of rapid ventricular response of her pre-existing atrial fibrillation. The patient was initially placed on Zosyn and Doxycycline; however, based on culture, she was then switched to Ceftriaxone. The patient also in the emergency department received Vancomycin, Cefepime, and Flagyl. The patient had subsequently been admitted for ten days. Her E. coli UTI was treated successfully with Ceftriaxone and she has completed her course. Her bibasilar pneumonia showed no interval changes on the on her repeat chest x-ray. Her leukocytosis was persistent; however, the rest of her symptoms resolved. Her blood pressure has normalized. Her fevers have resolved. Strep pneumo and strep legionella were negative. The patient remained oxygen dependent. Her echocardiogram did not show any acute changes. She has an EF of 60 to 65 percent. She was maintained on nebulizers and inhalers which did help. She is on Torsemide at baseline at home. The patient did obtain a negative fluid balance over the last 48 hours. Her respirations have normalized. She remains oxygen dependent and rather weak; however, she has been working with physical therapy daily. Her weight has changed from 257 pounds in the ninth to 244 pounds today. Again, she is now diuresing appropriately and her respiratory status has been stabilized. She is being readied for discharge today. Also of note, her atrial fibrillation with RVR has now resolved. We maintained her on her Eliquis and her Diltiazem. For her diabetes management, she is not normally on insulin; however, her diabetes was uncontrolled with an A1c of almost 12. She was placed on long-acting and short-acting insulin coverage. This should be addressed further as an outpatient. She will be going to short- term rehab. We will keep her on her insulin regimen. We recommend that she transfer back to a combination of agents while she is in rehab and then as an outpatient as well. There was some discrepancy over where the patient wanted to be discharged to. She does qualify for short-term rehab. She has bed acceptance at [facility]. The patient will be discharged to [place] today. It is our understanding from case management that the patient was hoping for admission to [facility]. I think there is no bed offer from [facility] at this point. There is a possibility today that the patient does get acceptance from [facility], then we can discharge her there. For now, the patient will be discharged to [place] on swing status. Case management has been discussing with the patient her discharge plan, also with her healthcare proxy who is at the bedside. DISCHARGE DIAGNOSES: 1. Sepsis, now resolved, secondary to community-acquired pneumonia and urinary tract infection. 2. Acute respiratory failure with hypoxia secondary to number one. Also secondary to obesity hypoventilation syndrome. 3. Acute diastolic heart failure, now resolved. 4. E. coli UTI, treated. 5. A-fib with RVR, now resolved. 6. Morbid obesity with weight loss during this admission. 7. Newly insulin dependent diabetes mellitus with labile sugars, slowly improving. 8. General weakness, appropriate for physical rehabilitation. DISCHARGE MEDICATIONS: 1. Tylenol 650 mg p.o. q.6 hours as needed. 2. Apixaban 2.5 mg p.o. b.i.d. 3. Atorvastatin 10 mg p.o. daily. 4. Diltiazem 240 mg p.o. daily. 5. Lantus 45 units q.12 hours scheduled. 6. Lispro sliding scale, scheduled. 7. Atrovent 0.5 mg q.4 hours as needed. 8. Xopenex 0.63 mg q.4 hours as needed. 9. Lisinopril 2.5 mg p.o. daily. 10. Mag Ox 400 mg p.o. b.i.d. 11. Metoprolol Succinate XL 25 mg p.o. b.i.d. 12. Dulera 200/5 metered dose inhaler two puffs inhaled b.i.d. 13. MiraLax 17 gm p.o. daily as needed. 14. Prednisone 30 mg p.o. daily. 15. Simethicone 80 mg p.o. q.6 hours. 16. Prednisone 30 mg p.o. daily, please taper by 10 mg q.3 days until complete. REVIEW OF SYSTEMS TODAY: The patient denies any fever, fatigue, or chills. No acute shortness of breath, no chest pain. No abdominal pain, no nausea, no vomiting. She is complaining of some general weakness, but no further constitutional complaints. PHYSICAL EXAMINATION: General: The patient is awake, alert, in no acute distress. Vital Signs: Blood pressure 125/52, heart rate 86, respiratory rate 20, O2 saturation 95 percent on 2 liters , temperature 97.1. HEENT: Patient is atraumatic, normocephalic. PERRLA with nonicteric sclerae. Extraocular movements are intact. Oral mucosa is moist. Tongue is midline. Neck: Supple, no thyromegaly noted, no carotid bruit auscultated. Cardiovascular: S1, S2 present. Rate and rhythm are currently irregular. No murmurs, gallops, or rubs noted. Lungs: Clear at the apices bilaterally, greatly diminished throughout. She has moderate air entry. No wheezing, rhonchi or rales noted today. Abdomen: Soft, nontender, nondistended. Positive bowel sounds all four quadrants. : She has a Cruz catheter draining clear yellow urine. Musculoskeletal: There is no clubbing, no cyanosis. She has some trace bipedal edema. She has gross motor and sensation intake. She does have full range of motion. She is generally weak, ambulating with a walker and assistance. Neurologic: She is grossly intact. Alert and oriented times three with no focal deficits. Psychiatric: She is cooperative and appropriate. LABORATORY DATA: WBC 14.9, RBC 3.81, hemoglobin 10.6, hematocrit 33, platelets 514; sodium 138, potassium 3.9, chloride 100, CO2 28, BUN 65, creatinine 1.62 at baseline, GFR 30.1 at baseline, glucose ranging from 113 to 291, hemoglobin A1c 11.4, calcium 9.1, magnesium 1.6 being repleted, troponins negative at 0.03 times two. IMAGIN. Most recent chest x-ray dated 10/30/2018 shows left basilar infiltrate and pleural effusion as noted, unchanged from previous, so no interval worsening there. 2. She has a venous Doppler on 10/24/2018 which showed slightly limited exam of the calves, but no evidence for DVT. 3. VQ scan of the lungs dated 10/24/2018 showed low probability for PE. 4. Transthoracic echocardiogram dated 10/24/2018: Conclusions: The study quality is poor. Mild concentric left ventricular hypertrophy is observed. The estimated ejection fraction is 60 to 65 percent. Overall left ventricular function appears normal. There are subtle wall motion abnormalities which cannot be excluded. The right ventricular global systolic function is normal. No evidence of aortic stenosis. There is trace mitral regurgitation. There is trace tricuspid regurgitation. There is no significant pericardial effusion. Compared to the study of 04/22/2014, the LV function has now improved. DISPOSITION: The patient will be discharged to short-term rehab as stated above. DIET: Consistent carbohydrate, ADA compliant, heart-healthy as tolerated. ACTIVITY: Progress as tolerated. FOLLOW-UP: The patient was instructed to follow-up with primary care of [facility]. She was originally a patient of Dr. Vance Jensen who is no longer at the practice. We recommend that she follow-up with the physician who will be covering him at the practice. TIME SPENT: Forty-five minutes interfacing with the patient and case management regarding discharge plan of care. SIN SANZ, DEBORAH [id number]/[facility] #: [id number] ALY
[2018-11-03] MEDS: Mometasone/Formoter 200/5 MDI INH SCH ×2 (08:35→20:36)
[2018-11-03] MEDS: Insulin LISPRO* 1 UNITS UNIT SUBCUT SCH ×3 (08:44→17:29)
[2018-11-03] MEDS: Metoprolol Succinate XL TAB* 25 MG PO SCH ×2 (08:53→21:36)
[2018-11-03] MEDS: Diltiazem CD CAP* 240 MG PO SCH (08:53)
[2018-11-03] MEDS: predniSONE TAB* 10 MG PO SCH (08:53)
[2018-11-03] MEDS: Atorvastatin* 10 MG TAB PO SCH (08:54)
[2018-11-03] MEDS: Magnesium Oxide TAB* 400 MG PO SCH ×2 (08:54→21:36)
[2018-11-03] MEDS: Lisinopril TAB* 5 MG PO SCH (08:54)
[2018-11-03] MEDS: Insulin GLARGINE(*) 1 UNITS UNIT SUBCUT SCH ×2 (08:54→21:37)
[2018-11-03] MEDS: Apixaban* 2.5 MG TAB PO SCH ×2 (08:54→21:36)
--- NOTE | 2018-11-03 17:20 | PN ---
Subjective Date of Service: 11/03/18 Interval History: Patient seen and examined. No overnight changes. Denies fever, no SOB, no chest pain. Family History: Unchanged from Admission Social History: Unchanged from Admission Past Medical History: Unchanged from Admission Objective Active Medications: Acetaminophen (Tylenol Tab*) 650 mg PO Q6H PRN PRN Reason: pain/fever Last Admin: 10/28/18 04:48 Dose: 650 mg Apixaban (Eliquis*) 2.5 mg PO BID [facility] Last Admin: 11/03/18 08:54 Dose: 2.5 mg Atorvastatin Calcium (Lipitor*) 10 mg PO DAILY [facility] Last Admin: 11/03/18 08:54 Dose: 10 mg Dextrose (D50w Syringe 50 Ml*) 12.5 gm IV PUSH .FOR FS < 60 - SS PRN PRN Reason: FS < 60 Diltiazem HCl (Cardizem Cd Cap*) 240 mg PO DAILY [facility] Last Admin: 11/03/18 08:53 Dose: 240 mg Insulin Glargine (Lantus(*)) 45 units SUBCUT Q12H [facility] Last Admin: 11/03/18 08:54 Dose: 45 units Insulin Human Lispro (Humalog*) 0 units SUBCUT AC [facility]; Protocol Last Admin: 11/03/18 12:54 Dose: 9 units Ipratropium [place] (Atrovent 0.5 Mg Neb.Kim*) 0.5 mg INH Q4H PRN PRN Reason: SOB/WHEEZING Levalbuterol HCl (Xopenex 0.63mg/3ml Neb*) 0.63 mg INH Q4H PRN PRN Reason: SOB/WHEEZING Lisinopril (Prinivil Tab*) 2.5 mg PO DAILY [facility] Last Admin: 11/03/18 08:54 Dose: 2.5 mg Magnesium Oxide (Magox 400 Tab*) 400 mg PO BID [facility] Last Admin: 11/03/18 08:54 Dose: 400 mg Metoprolol Succinate (Toprol Xl Tab*) 25 mg PO BID [facility] Last Admin: 11/03/18 08:53 Dose: 25 mg Mometasone Furoate/Formoterol Fumar (Dulera 200/5 Mdi*) 2 puff INH BID [facility] Last Admin: 11/03/18 08:35 Dose: 2 puff Polyethylene Glycol/Electrolytes (Miralax*) 17 gm PO DAILY PRN PRN Reason: CONSTIPATION Last Admin: 10/27/18 22:46 Dose: 17 gm Prednisone (Deltasone Tab*) 30 mg PO DAILY [facility] Last Admin: 11/03/18 08:53 Dose: 30 mg Simethicone (Mylicon Tab*) 80 mg PO Q6H PRN PRN Reason: INDIGESTION Last Admin: 10/29/18 11:30 Dose: 80 mg Vital Signs - 8 hr 11/03/18 11:06 Temperature 97.3 F Pulse Rate 89 Respiratory 20 Rate Blood Pressure 127/66 (mmHg) O2 Sat by Pulse 95 Oximetry Oxygen Devices in Use Now: Nasal Cannula Appearance: alert, NAD Eyes: PERRLA Ears/Nose/Mouth/Throat: Mucous Membranes Moist Neck: NL Appearance and Movements; NL JVP, Trachea Midline Respiratory: Symmetrical Chest Expansion and Respiratory Effort, Clear to Auscultation, - - diminished bases Cardiovascular: No Edema, - - irregular/afib Extremities: No Clubbing, Cyanosis Skin: No Rash or Ulcers Neurological: Alert and Oriented x 3 Nutrition: Taking PO's Result Diagrams: 10/31/18 05:13 10/31/18 05:13 Additional Lab and Data: Laboratory Results - last 24 hr 10/25/18 10/25/18 10/25/18 11:19 11:35 16:36 WBC RBC Hgb Hct MCV MCH MCHC RDW Plt Count MPV Neut % (Auto) Lymph % (Auto) [place] % (Auto) Eos % (Auto) Baso % (Auto) Absolute Neuts (auto) Absolute Lymphs (auto) Absolute Monos (auto) Absolute Eos (auto) Absolute Basos (auto) Absolute Nucleated RBC Nucleated RBC % Sodium Potassium Chloride Carbon Dioxide Anion Gap BUN Creatinine Est GFR ( Amer) Est GFR (Non-Af Amer) BUN/Creatinine Ratio Glucose POC Glucose (mg/dL) > 444 H* 408 H* Glucose Meter Confirm 435 H Calcium Magnesium 10/25/18 10/25/18 10/26/18 16:53 17:57 05:05 WBC RBC Hgb Hct MCV MCH MCHC RDW Plt Count MPV Neut % (Auto) Lymph % (Auto) [place] % (Auto) Eos % (Auto) Baso % (Auto) Absolute Neuts (auto) Absolute Lymphs (auto) Absolute Monos (auto) Absolute Eos (auto) Absolute Basos (auto) Absolute Nucleated RBC Nucleated RBC % Sodium 129 L Potassium 4.1 Chloride 99 L Carbon Dioxide 24 Anion Gap 6 BUN 54 H Creatinine 1.87 H Est GFR ( Amer) 30.9 Est GFR (Non-Af Amer) 25.5 BUN/Creatinine Ratio 28.9 H Glucose 299 H POC Glucose (mg/dL) 377 H Glucose Meter Confirm 370 H Calcium 8.2 L Magnesium 1.8 L 10/26/18 10/26/18 05:05 08:14 WBC 16.6 H RBC 3.58 L Hgb 10.0 L Hct 32 L MCV 89 MCH 28 MCHC 32 RDW 16 H Plt Count 406 MPV 8.7 Neut % (Auto) 83.7 Lymph % (Auto) 7.7 [place] % (Auto) 7.2 Eos % (Auto) 0.9 Baso % (Auto) 0.5 Absolute Neuts (auto) 13.9 H Absolute Lymphs (auto) 1.3 Absolute Monos (auto) 1.2 H Absolute Eos (auto) 0.1 Absolute Basos (auto) 0.1 Absolute Nucleated RBC 0 Nucleated RBC % 0.1 Sodium Potassium Chloride Carbon Dioxide Anion Gap BUN Creatinine Est GFR ( Amer) Est GFR (Non-Af Amer) BUN/Creatinine Ratio Glucose POC Glucose (mg/dL) 296 H Glucose Meter Confirm Calcium Magnesium Microbiology and Other Data: Microbiology 10/23/18 15:29 Blood Venous Aerobic Blood Culture - Preliminary No Growth Day 2 10/23/18 15:29 Blood Venous Anaerobic Blood Culture - Preliminary No Growth Day 2 10/23/18 14:24 Blood Venous Aerobic Blood Culture - Preliminary No Growth Day 2 10/23/18 14:24 Blood Venous Anaerobic Blood Culture - Preliminary No Growth Day 2 10/23/18 13:45 Urine Urine Culture - Final Escherichia Coli 10/24/18 02:00 Nasal Nasal Screen MRSA (PCR) - Final Mrsa Not Detected 10/24/18 02:00 Nasal Influenza Types A,B Antigen - Final Specimen received for Influenza A/B Molecular testing Assess/Plan/Problems-Billing Assessment: Ms. Frias is an 88 yo female with PMH of NIDDM with A1C 11.4, Afib with RVR, HTN, anxiety, morbid obesity, obesity hypoventilation syndrome, CKD stage 3; p/ with increasing fatigue and respiratory failure 2/2 UTI and pneumonia with acute decompensation and multifactorial hypoxic respiratory failure - Patient Problems (1) Acute respiratory failure with hypoxia Code(s): J96.01 - ACUTE RESPIRATORY FAILURE WITH HYPOXIA SNOMED Code(s): 14633172 Comment: - Secondary to CAP and obesity hypoventilation syndrome - Has had continuous antibiotics since 10/24, remains afebrile, DC all atbx today - Reduce O2 to 1.5L and keep sat >92% - Continue nebs, Dulera, prednisone (decreased to 30mg) - Repeat CXR as above, unchanged (2) JIGNA (acute kidney injury) Code(s): N17.9 - ACUTE KIDNEY FAILURE, UNSPECIFIED SNOMED Code(s): 19096143 Comment: - 2/2 diuretic use; FENa indicates prerenal source - CKD stage 3 at baseline (approx 1.6) - Continue to monitor renal function while continuing diuresis (3) Acute diastolic CHF (congestive heart failure) Code(s): I50.31 - ACUTE DIASTOLIC (CONGESTIVE) HEART FAILURE SNOMED Code(s): 642783084 Comment: - Strict I&O, daily weights - Remains at negative fluid balance with 11lb weight loss since admission - Continue concepcion, lasix discontinued (4) Diabetes mellitus, type 2 Comment: - Uncontrolled, A1c 11.4% with somewhat labile sugars - Hold metformin, Januvia, Trulicity - Continue Lantus (dose increased), Lispro SS - Transition back to home meds for DC (5) E-coli UTI Code(s): N39.0 - URINARY TRACT INFECTION, SITE NOT SPECIFIED; B96.20 - UNSP ESCHERICHIA COLI THE CAUSE OF DISEASES CLASSD [id number] SNOMED Code(s): 196242150 Comment: - Last dose ceftriaxone yesterday (6) Morbid obesity Current Visit: Yes Status: Acute Code(s): E66.01 - MORBID (SEVERE) OBESITY DUE TO EXCESS CALORIES SNOMED Code(s): 163986156 Comment: - BMI 41 - Supportive care (7) Pneumonia Code(s): J18.9 - PNEUMONIA, UNSPECIFIED ORGANISM SNOMED Code(s): 567571228 Comment: - Repeat CXR with no interval worsening on 10/31 - Negative strep pneumo and legionella urine antigens - DC antibiotics 11/02 (8) Sepsis Comment: - Resolved - Blood cx NTD - Continue zosyn (9) Rapid atrial fibrillation Code(s): I48.91 - UNSPECIFIED ATRIAL FIBRILLATION SNOMED Code(s): 091746531 Comment: - Now resolved, rate controlled on tele - Goal magnesium >2, potassium >4, monitor and replete PRN - Continue Eliquis (renal dosing), diltiazem, metoprolol (10) DVT prophylaxis Code(s): [id number] - SNOMED Code(s): 925181430 Comment: - Eliquis (11) Full code status Code(s): Z78.9 - OTHER SPECIFIED HEALTH STATUS SNOMED Code(s): 769816886 Comment: Status and Disposition: Inpatient. Was discharged yesterday but no auth from insurance. Auth obtained today but now it is too late in the day for [facility] to take the patient. Will DC in AM
[2018-11-04] MEDS: Mometasone/Formoter 200/5 MDI INH SCH (08:58)
[2018-11-04] MEDS: Insulin LISPRO* 1 UNITS UNIT SUBCUT SCH (09:01)
[2018-11-04 09:03] VITALS: BP 139/72
[2018-11-04] MEDS: Insulin GLARGINE(*) 1 UNITS UNIT SUBCUT SCH (09:33)
[2018-11-04] MEDS: Lisinopril TAB* 5 MG PO SCH (09:34)
[2018-11-04] MEDS: Atorvastatin* 10 MG TAB PO SCH (09:34)
[2018-11-04] MEDS: predniSONE TAB* 10 MG PO SCH (09:34)
[2018-11-04] MEDS: Apixaban* 2.5 MG TAB PO SCH (09:34)
[2018-11-04] MEDS: Diltiazem CD CAP* 240 MG PO SCH (09:34)
[2018-11-04] MEDS: Metoprolol Succinate XL TAB* 25 MG PO SCH (09:34)
[2018-11-04] MEDS: Magnesium Oxide TAB* 400 MG PO SCH (09:34)
== END 2018-11-04 12:20 | disposition swing bed (61) | DRG 871 ==
LOC: ED 13:07 → MED 15:14 → ICU 10-24 01:36 → MEDTELE 10-24 17:41
PROVIDERS: ADMIT Internal Medicine; ATTEND Internal Medicine
DX: A41.9 Sepsis, unspecified organism (principal); J96.01 Acute respiratory failure with hypoxia; J18.9 Pneumonia, unspecified organism; I50.31 Acute diastolic (congestive) heart failure; N39.0 Urinary tract infection, site not specified; Z68.41 Body mass index [BMI] 40.0-44.9, adult; I13.0 Hypertensive heart and chronic kidney disease with heart failure and stage 1 through stage 4 chronic kidney disease, or unspecified chronic kidney disease; N17.9 Acute kidney failure, unspecified; E66.2 Morbid (severe) obesity with alveolar hypoventilation; I48.91 Unspecified atrial fibrillation; E78.5 Hyperlipidemia, unspecified; K57.90 Diverticulosis of intestine, part unspecified, without perforation or abscess without bleeding; K58.9 Irritable bowel syndrome, unspecified; E11.22 Type 2 diabetes mellitus with diabetic chronic kidney disease; M17.0 Bilateral primary osteoarthritis of knee; H26.9 Unspecified cataract; F41.9 Anxiety disorder, unspecified; L30.9 Dermatitis, unspecified; E11.65 Type 2 diabetes mellitus with hyperglycemia; N18.3 Chronic kidney disease, stage 3 (moderate); I08.1 Rheumatic disorders of both mitral and tricuspid valves; I87.8 Other specified disorders of veins; B96.20 Unspecified Escherichia coli [E. coli] as the cause of diseases classified elsewhere; T50.2X5A Adverse effect of carbonic-anhydrase inhibitors, benzothiadiazides and other diuretics, initial encounter; Y92.239 Unspecified place in hospital as the place of occurrence of the external cause; Z88.1 Allergy status to other antibiotic agents; Z88.5 Allergy status to narcotic agent; Z88.0 Allergy status to penicillin; Z88.2 Allergy status to sulfonamides; Z91.018 Allergy to other foods; Z87.440 Personal history of urinary (tract) infections; Z96.643 Presence of artificial hip joint, bilateral; Z98.41 Cataract extraction status, right eye; Z96.1 Presence of intraocular lens; Z83.79 Family history of other diseases of the digestive system; Z81.8 Family history of other mental and behavioral disorders; Z72.89 Other problems related to lifestyle; Z82.5 Family history of asthma and other chronic lower respiratory diseases; Z84.1 Family history of disorders of kidney and ureter; Z91.81 History of falling; Z99.81 Dependence on supplemental oxygen; Z79.01 Long term (current) use of anticoagulants; Z79.4 Long term (current) use of insulin
CPT/HCPCS: 36415; 36600; 71045; 71046; 78582; 80048; 80053; 81003; 81015; 82570; 82803; 82947; 83036; 83605; 83735; 83880; 84300; 84443; 84484; 84540; 85025; 85379; 85610; 85730; 86140; 87040; 87077; 87086; 87186; 87641; 87899; 93005; 93306; 93970; 94640; 99285; A9270-GY; A9540; A9558; C8929; G8978-GP-CN; G8979-GP-CK; G8987-GO-CL; G8988-GO-CJ; J0692; J0696; J1644; J1815; J1940; J2543; J3370; J3475; J3480; J3490; J7512